=== PATIENT | female | born 1940 | race Caucasian/White ===

== ENCOUNTER 2024-04-09 15:29 | Inpatient (IN) | payer OTHER, SELFPAY ==
[2024-04-09] VITALS (19 sets, daily range): BP systolic 92–151; BP diastolic 47–93; BMI 23.4; BMI 22.3
--- NOTE | 2024-04-09 08:24 | ED.GENMED ---
History of Present Illness
<MIKE Vicente - Last Filed: 04/09/24 13:26>
General
Chief Complaint: Abdominal Symptoms
Source: patient and family
Time Seen by Provider: 04/09/24 08:13
Nursing documentation reviewed up to this point in time: agreed with
Travel History
Have you had any contact with someone who has COVID-19?: No
Do you have any symptoms of coronavirus? Fever > 100 degrees, chills, cough, shortness of breath, sore throat, loss of taste or smell, muscle aches, or headache?: No
History of Present Illness
History of Present Illness:
Patient is a 83-year-old female with history of endometrial cancer followed at [facility] immunotherapy has not started chemo yet due to start chemo April 21 presents to the ER for evaluation of abdominal bloating and distention/pain.
Patient does report however she is constipated as well but has had paracentesis March 29 and had 3 L drained.
She reports this bloating pain feels similar to when she needed her paracentesis March 29. She reports fluid has built up very quickly after having that drained. She denies any fever or chills redness to abdomen.
Past History
<MIKE Vicente - Last Filed: 04/09/24 13:26>
Past History
ED Past Medical History: Hypercholesterolemia; Negative HTN or NIDDM
Social History
Tobacco: Non-smoker
Alcohol: Occasional
Personal:
<Joe Barth MD - Last Filed: 04/09/24 11:06>
Past History
ED Past Medical History: Cancer (Endometrial cancer), HTN and Hypercholesterolemia
ED Past Surgical History: Gynecological
Review of Systems
<MIKE Vicente - Last Filed: 04/09/24 13:26>
Review of Systems
Allergies reviewed?: Yes
Other source history: family
All Other Systems: ROS reviewed and negative except as documented in HPI and ROS
Constitutional: Reports no symptoms; Denies fever, fatigue or chills
Respiratory: Reports no symptoms
Cardiac: Reports no symptoms
ABD/GI: Reports abdominal pain and other (abdominal bloating distention )
: Reports no symptoms
Musculoskeletal: Reports no symptoms
Skin: Reports no symptoms
Psychiatric: Reports no symptoms
Phy Exam
<MIKE Vicente - Last Filed: 04/09/24 13:26>
General Physical Exam
General Presentation: no apparent distress
General age: appears stated age
General Skin: warm and dry
General Mental: alert
General Hydration: appears well hydrated
Cardiovascular Exam
Cardiovascular Exam: regular rate/rhythm, no murmur and normal peripheral pulses
Pulmonary Exam
Pulmonary Exam: lungs clear and no respiratory distress
Gastrointestinal Exam
Gastrointestinal Exam: soft and other (Distended tender throughout no erythema)
Neurological Exam
Neurological Exam: alert and oriented x3
Musculoskeletal Exam
Musculoskeletal Exam: full ROM
Skin Exam
Skin Exam: normal color and warm/dry
Psychiatric Exam
Psychiatric Exam: normal mood/affect
Course
<MIKE Vicente - Last Filed: 04/09/24 13:26>
Orders/Labs/Results
Orders:
Orders
04/09/24 08:44
Electrocardiogram (*1) Stat
Reason for Study: Abdominal Pain
Cardiac Monitoring- Treatment ONCE
EKG- Treatment ONCE
IV Insert/Care/Rem.- Treatment PRN
Urinalysis Reflex To Culture Urgent
04/09/24 09:18
Complete Blood Count/With Diff Urgent
Comprehensive Metabolic Panel Urgent
Lipase Urgent
04/09/24 09:56
Morphine Sulfate 2 mg IV NOW STA
Ondansetron Injectable [Zofran] 4 mg IV NOW STA
04/09/24 09:58
CT Abd/pel Without Iv Or Oral Urgent
Comment:
Reason For Exam: Endometrial CA/ascites/lower abdominal pain
04/09/24 10:47
Consult Interventional Radiology [IRAD CONSULT] Urgent
Consulting Provider: Rojas Isidro
Was physician already notified: Yes
Reason for Consult/Procedure: paracentesis. evaluate for sbp
Acknowledgement that appropriate orders are entered: Yes
04/09/24 10:48
Body Fluid Albumin Routine
Fluid Source: Peritoneal (Ascites)
Body Fluid Amylase Routine
Fluid Source: Peritoneal (Ascites)
Body Fluid Cell Count Routine
What is the Body Fluid: peritoneal fluid
Comment: post procedure
Body Fluid LDH Routine
Fluid Source: Peritoneal (Ascites)
Body Fluid Protein Routine
Fluid Source: Peritoneal (Ascites)
Fluid Culture with Gram Stain Routine
JABIER Source: Peritoneal Fluid
Specimen Description:
Comment: Post Procedure
04/09/24 11:34
Notify MD As Directed
Notify physician if: Notify hospitalist MD of volume removed when paracentesis complete.
IRAD Cytology Routine
Source: Peritoneal Fluid
Clinical Impression: ascites
History of Malignancy: endometrial ca
04/09/24 12:14
Levetiracetam Injectable [Keppra] 1,000 mg .ROUTE .STK-MED ONE
Abnormal Lab Results
04/09/24
09:18
WBC 13.6 H 10^3/uL
(4.8-10.8)
RBC 3.40 L 10^6/uL
(4.20-5.40)
Hgb 10.6 L g/dL
(12.0-16.0)
Hct 31.6 L %
(37.0-47.0)
MCH 31.2 H pg
(27.0-31.0)
Plt Count 636 H 10^3/uL
(130-400)
Abs Immat Gran (auto) 0.1 H 10^3/uL
(0-0.05)
Absolute Neuts (auto) 10.0 H 10^3/uL
(1.4-6.5)
Absolute Monos (auto) 1.3 H 10^3/uL
(0.1-0.6)
Lymphocytes % 15.4 L %
(20.5-51.1)
Sodium 134 L mmol/L
(135-145)
BUN 27 H mg/dl
(7-17)
Creatinine 2.1 H mg/dL
(0.6-1.0)
Glucose 102 H mg/dl
(70-99)
AST 41 H U/L
(14-36)
Total Protein 5.3 L g/dl
(6.3-8.2)
Albumin 2.7 L g/dl
(3.5-5.0)
04/09/24 09:18
04/09/24 09:18
Vital Signs
Initial and Last Documented VS:
Initial Vital Signs
Temp Pulse Resp BP Pulse Ox
98.1 F 89 17 134/55 98
04/09/24 08:03 04/09/24 08:03 04/09/24 08:03 04/09/24 08:03 04/09/24 08:03
Last Documented Vital Signs
Temp Pulse Resp BP Pulse Ox
98.1 F 93 15 149/52 95
04/09/24 08:03 04/09/24 12:30 04/09/24 12:30 04/09/24 12:00 04/09/24 12:30
[employer] consulted with Physician
[employer] consulted with physician?: Yes
Name of Physician Consulted: Tab
<Joe Barth MD - Last Filed: 04/09/24 11:06>
Orders/Labs/Results
Orders:
Orders
04/09/24 08:44
Electrocardiogram (*1) Stat
Reason for Study: Abdominal Pain
Cardiac Monitoring- Treatment ONCE
EKG- Treatment ONCE
IV Insert/Care/Rem.- Treatment PRN
Urinalysis Reflex To Culture Urgent
04/09/24 09:18
Complete Blood Count/With Diff Urgent
Comprehensive Metabolic Panel Urgent
Lipase Urgent
04/09/24 09:56
Morphine Sulfate 2 mg IV NOW STA
Ondansetron Injectable [Zofran] 4 mg IV NOW STA
04/09/24 09:58
CT Abd/pel Without Iv Or Oral Urgent
Comment:
Reason For Exam: Endometrial CA/ascites/lower abdominal pain
04/09/24 10:47
Consult Interventional Radiology [IRAD CONSULT] Urgent
Consulting Provider: Rojas Isidro
Was physician already notified: Yes
Reason for Consult/Procedure: paracentesis. evaluate for sbp
Acknowledgement that appropriate orders are entered: Yes
04/09/24 10:48
Body Fluid Albumin Routine
Fluid Source: Peritoneal (Ascites)
Body Fluid Amylase Routine
Fluid Source: Peritoneal (Ascites)
Body Fluid Cell Count Routine
What is the Body Fluid: peritoneal fluid
Comment: post procedure
Body Fluid LDH Routine
Fluid Source: Peritoneal (Ascites)
Body Fluid Protein Routine
Fluid Source: Peritoneal (Ascites)
Fluid Culture with Gram Stain Routine
JABIER Source: Peritoneal Fluid
Specimen Description:
Comment: Post Procedure
04/09/24 11:34
Notify MD As Directed
Notify physician if: Notify hospitalist MD of volume removed when paracentesis complete.
IRAD Cytology Routine
Source: Peritoneal Fluid
Clinical Impression: ascites
History of Malignancy: endometrial ca
04/09/24 12:14
Levetiracetam Injectable [Keppra] 1,000 mg .ROUTE .STK-MED ONE
Abnormal Lab Results
04/09/24
09:18
WBC 13.6 H 10^3/uL
(4.8-10.8)
RBC 3.40 L 10^6/uL
(4.20-5.40)
Hgb 10.6 L g/dL
(12.0-16.0)
Hct 31.6 L %
(37.0-47.0)
MCH 31.2 H pg
(27.0-31.0)
Plt Count 636 H 10^3/uL
(130-400)
Abs Immat Gran (auto) 0.1 H 10^3/uL
(0-0.05)
Absolute Neuts (auto) 10.0 H 10^3/uL
(1.4-6.5)
Absolute Monos (auto) 1.3 H 10^3/uL
(0.1-0.6)
Lymphocytes % 15.4 L %
(20.5-51.1)
Sodium 134 L mmol/L
(135-145)
BUN 27 H mg/dl
(7-17)
Creatinine 2.1 H mg/dL
(0.6-1.0)
Glucose 102 H mg/dl
(70-99)
AST 41 H U/L
(14-36)
Total Protein 5.3 L g/dl
(6.3-8.2)
Albumin 2.7 L g/dl
(3.5-5.0)
04/09/24 09:18
04/09/24 09:18
Vital Signs
Initial and Last Documented VS:
Initial Vital Signs
Temp Pulse Resp BP Pulse Ox
98.1 F 89 17 134/55 98
04/09/24 08:03 04/09/24 08:03 04/09/24 08:03 04/09/24 08:03 04/09/24 08:03
Last Documented Vital Signs
Temp Pulse Resp BP Pulse Ox
98.1 F 93 15 149/52 95
04/09/24 08:03 04/09/24 12:30 04/09/24 12:30 04/09/24 12:00 04/09/24 12:30
<MIKE Vicente - Last Filed: 04/09/24 13:26>
MDM/Problems Addressed
Differential Diagnosis Includes:
Not limited to spontaneous bacterial peritonitis, diverticulitis, constipation
MDM/Problems Addressed:
83-year-old female with endometrial cancer being followed at [facility] presents to the ER with abdominal bloating pain. She had a paracentesis done March 29 reports is due for one tomorrow means abdominal pain swelling and also constipation. She
denies any fever chills. She has nauseous but has not vomited. On exam she is mildly tender throughout no erythema to abdomen she has no fever here. EValuated by ED attending will order ct and treat for pain /nausea.
Late entry patient has a white count elevated at 13.3 and CAT scan does show new large volume of abdominopelvic ascites and new moderate right hydro likely secondary to carcinomatosis in the inferior pelvis obstructing the distal right ureter.
Patient will need to have paracentesis with elevated white count and ascites to rule out spontaneous bacterial peritonitis
Chronic conditions affecting care:
Endometrial cancer
<MIKE Vicente - Last Filed: 04/09/24 13:26>
*Radiology
Radiology exam reviewed: radiology read reviewed (CAT scan shows new large volume abdominopelvic ascites new moderate right hydro likely secondary to carcinomatosis in the inferior pelvis and partial obstructing the distal right ureter small left
pleural effusion)
*Critical Care Note
Total Time (30-74mins, 75-104mins- exclusive of procedures): Not Applicable
ED Attending Note
<MIKE Vicente - Last Filed: 04/09/24 13:26>
-
Portions of this chart may have been created with voice recognition software.� Occasional wrong word or��sound alike� substitutions may have occurred due to the inherent limitations of voice recognition software.
<Joe Barth MD - Last Filed: 04/09/24 11:06>
ED Attending Note
Patient seen and examined by attending physician: Yes
I performed the substantive portion of visit, reviewed & personally made and approve the management plan that is documented in note by myself or DARNELL.: Yes
ED Attending Note:
83-year-old female with endometrial CA. Follow through [facility] goes to [facility] for a paracentesis. First was done March 29. After the paracentesis she felt better for 3 days but has developed ongoing and progressive pain since then. No
fever. Some constipation. No dysuria or frequency.
On exam patient appears uncomfortable but relatively nontoxic. She is mildly pale. Abdomen is mildly distended with hypoactive bowel sounds. Questionable minimal fluid wave. Tenderness more in the left lower quadrant. No rebound or guarding no
mass or hernia
Impression large differential including pain secondary to simple ascites accumulation, SBP, other nonrelated cause including diverticulitis. Workup in progress. Discussed with family.
1100... CT with significant ascites. Elevated white count. Paracentesis warranted. Discussed with IR. Discussed with hospitalist. Family updated.
Discharge Plan
Departure
Patient Disposition: Admit
Date of Disposition: 04/09/24
Time of Disposition: 10:48
Admit to doctor: hospitalist
Presentation/result/management discussed w/ accepting MD/DO: Hospitalist
Condition: Fair
Covid-19: Not Applicable
Discharge Problem:
Abdominal ascites, Abdominal pain
Prescriptions:
No Action
losartan 50 mg Tablet
50 mg PO DAILY
sennosides [Senokot] 8.6 mg Tablet
8.6 mg PO HS PRN (Reason: constipation)
ondansetron HCl 8 mg Tablet
8 mg PO QIDPRN PRN (Reason: nausea/vomiting)
tramadol 50 mg Tablet
50 mg PO BID PRN (Reason: mild pain)
acetaminophen [Tylenol Extra Strength] 500 mg Tablet
1,000 mg PO BIDPRN PRN (Reason: mild pain)
pantoprazole 40 mg Tablet,Delayed Release (Dr/Ec)
40 mg PO DAILY PRN (Reason: gerd)
carboxymethylcellulose sodium [Refresh] 1 % Drops, Liquid Gel
0 drp BOTH EYES DAILYPRN PRN (Reason: dry eyes)
Patient Comments:
04/09/2024, per pt., she uses PF eye drops and will place as many drops as she can get into each eye so she doesn't waste it.
rosuvastatin 5 mg Tablet
5 mg PO QPM
Systane (PF) 0.4-0.3 % Dropperette
1 drp BOTH EYES DAILYPRN PRN (Reason: dry eyes)
Referrals:
Dora Zepeda MD [Family Provider] -
Discharge Date and Time
Print Language: ARMENIAN
[2024-04-09 09:45] LABS: ALT (SGPT) < 10 U/L (0-35); AST (SGOT) 41 U/L (14-36); Albumin 2.7 g/dl (3.5-5.0); Alkaline Phosphatase 94 U/L (38-126); Blood Urea Nitrogen 27 mg/dl (7-17); Carbon Dioxide 22 mmol/L (22-30); Chloride 104 mmol/L (98-107); Estimated Creatinine Clearance 17 ml/min; Glucose 102 mg/dl (70-99); Potassium 4.8 mmol/L (3.5-5.1); Sodium 134 mmol/L (135-145); Total Bilirubin 0.4 mg/dl (0.2-1.3); Total Protein 5.3 g/dl (6.3-8.2); eGFR 22.81
[2024-04-09 09:48] LABS: % Basophils 0.7 % (0-2); % Eosinophils 1.1 % (0-6); % Immature Granulocytes 0.4 % (0-0.5); % Lymphocytes 15.4 % (20.5-51.1); % Monocytes 9.2 % (1.7-9.3); % Neutrophils 73.2 % (42.2-75.2); Absolute Basophils 0.1 10^3/uL (0-0.2); Absolute Eosinophils 0.2 10^3/uL (0-0.7); Absolute Immature Granulocytes 0.1 10^3/uL (0-0.05); Absolute Lymphocytes 2.1 10^3/uL (1.2-3.4); Absolute Monocytes 1.3 10^3/uL (0.1-0.6); Hematocrit 31.6 % (37.0-47.0); Hemoglobin 10.6 g/dL (12.0-16.0); Mean Corp Hgb Conc. 33.5 g/dL (33.0-37.0); Mean Corpuscular Hgb 31.2 pg (27.0-31.0); Mean Corpuscular Volume 92.9 fL (81.0-99.0); Mean Platelet Volume 8.5 fL (7.4-10.4); Nucleated Red Blood Cells % 0 %; Platelet Count 636 10^3/uL (130-400); Red Cell Dist. Width 12.6 % (11.5-14.5); White Blood Cell Count 13.6 10^3/uL (4.8-10.8)
[2024-04-09] MEDS: MORPHINE SULFATE 2 MG IV (10:02)
[2024-04-09] MEDS: ZOFRAN 4 MG IV (10:04)
[2024-04-09 10:07] LABS: Lipase 43 U/L (23-300)
--- NOTE | 2024-04-09 14:34 | HPS.HSE ---
Family Physician
-
Family Physician: Dora Zepeda
Chief Complaint
-
abd pain
History of Present Illness
83 y/o F hx of metastatic endometrial cancer, followed by [facility], hx of HTN, HLD presents to ER For abdominal pain, distention and bloating. Patient reports symptoms progressive over a few days and she recently had paracentesis 03/29. She
reports constipation as well. She was due to paracentesis tomorrow outpatient but came to ER For drainage. She reports chronic pain, and low appetite, limited intake. She is supposed to start chemo later in March.
In ER, she is found to have leukocytosis. She was sent to IR for paracentesis and 2.6L removed. Admitted for further management.
Medical History
Past Medical History
Past Medical History: Reports Other (hx of metastatic endometrial cancer, followed by [facility], hx of HTN, HLD)
Past Surgical History: Reports None
Social History
Tobacco: Non-smoker
Alcohol: Occasional
Personal:
Family History
Family History: Not pertinent
Allergies / Home Medications
Allergies reflects when Allergies were last updated in [employer].
Home Medications with original date entered in [employer]
Allergy/Medication List:
Allergies
Allergy/AdvReac Type Severity Reaction Status Date / Time
cefaclor [From [facility]] Allergy Rash Verified 04/09/24 08:17
shrimp Allergy Rash Uncoded 04/09/24 08:17
Home Medications
acetaminophen 500 mg tablet (Tylenol Extra Strength) 1,000 mg PO BIDPRN PRN mild pain 04/09/24
carboxymethylcellulose sodium 1 % eye liquid gel drops 0 drp BOTH EYES DAILYPRN PRN dry eyes 04/09/24
losartan 50 mg tablet 50 mg PO DAILY 04/09/24
ondansetron HCl 8 mg tablet 8 mg PO QIDPRN PRN nausea/vomiting 04/09/24
pantoprazole 40 mg tablet,delayed release 40 mg PO DAILY PRN gerd 04/09/24
peg 400-propylene glycol (PF) 0.4 %-0.3 % eye drops in a dropperette (Systane (PF)) 1 drp BOTH EYES DAILYPRN PRN dry eyes 04/09/24
rosuvastatin 5 mg tablet 5 mg PO QPM 04/09/24
sennosides 8.6 mg tablet (Senokot) 8.6 mg PO HS PRN constipation 04/09/24
tramadol 50 mg tablet 50 mg PO BID PRN mild pain 04/09/24
Review of Systems
-
A 12 point ROS was completed and negative except as noted: No
Physical Exam
Vital Signs
Vital Signs
Temp Pulse Resp BP Pulse Ox
99.5 F 94 16 135/54 98
04/09/24 13:00 04/09/24 13:51 04/09/24 13:51 04/09/24 13:51 04/09/24 13:51
Physical Exam
General: No Apparent Distress
HEENT: NormoCephalic and Anicteric
Respiratory: No Wheezes
Cardiac: S1/S2 and Regular Rhythm
GI: Tender (mild)
Neuro: AO x 3
Psych: Calm
Laboratory Results
-
04/09/24 09:18
04/09/24 09:18
Laboratory Results
Total Bilirubin 0.4 mg/dl (0.2-1.3) 04/09/24 09:18
AST 41 U/L (14-36) H 04/09/24 09:18
ALT < 10 U/L (0-35) 04/09/24 09:18
Alkaline Phosphatase 94 U/L (38-126) 04/09/24 09:18
Lipase 43 U/L (23-300) 04/09/24 09:18
Data Reviewed
-
CT Scan: Report Reviewed by me, Discussed with Patient and Discussed with Family
Lab Data: Labs Reviewed by me, Discussed with Patient and Discussed with Family
Impression/Plan
-
Assessment:
Ascites likely malignant, cannot rule out SBP
hx of metastatic endometrial cancer, followed by [facility]
- s/p paracentesis 04/09, 2.6L removed. labs pending
- give Albumin due to hypotension post procedure
- start empiric renally dosed Cipro pending data (Cephalosporin allergy)
- pain control, anti-emetics
- ok for diet, add supplements, concern for malnutrition, will be screened by dietary
- f/u with Firearms Inspector/Onc for planned initiation of chemo later this month
Essential HTN
- hold ARB
HLD
- hold statin
DVT ppx: SC heparin
Code: Full
[2024-04-09 14:42] LABS: Body Fluid Mononuclear 89.6 %; Body Fluid Polymorphonuclear 10.4 %; Body Fluid WBC 550 /CUMM
[2024-04-09 14:48] LABS: Body Fluid Second Tech HB
[2024-04-09 15:01] LABS: Body Fluid Albumin 1.6 g/dl; Body Fluid Amylase 45 U/L; Body Fluid Protein 3.5 g/dl
[2024-04-09 16:12] LABS: Body Fluid LDH 1939 U/L
--- NOTE | 2024-04-09 16:36 | PTCARENOTE ---
Received patient from ED via stretcher. Pt AAOX3. Pox: 95% RA. Call pinto within reach. Plan of care ongoing.
[2024-04-09] MEDS: FLEXBUMIN 100 IV (17:23)
[2024-04-09] MEDS: STERILE WATER FOR INJECTION 10 ML IV (17:28)
[2024-04-09] MEDS: ROCEPHIN 1000 MG IV (17:28)
[2024-04-09] MEDS: SENOKOT-S 1 TABLET PO ×2 (17:42→21:07)
[2024-04-09] MEDS: HEPARIN 5000 UNITS SC (20:58)
[2024-04-09] MEDS: MIRALAX 17 GRAMS PO (21:08)
[2024-04-09 23:34] LABS: Urine Albumin Trace (Neg - Trace); Urine Bilirubin Negative (Negative); Urine Character Clear (Clear); Urine Color Yellow; Urine Glucose Negative (Negative); Urine Ketone 1+ (Negative); Urine Leukocyte 1+ (Negative); Urine Nitrite Negative (Negative); Urine Occult Blood Negative (Negative); Urine Specific Gravity 1.025 (<1.030); Urine Urobilinogen Negative (Neg - 1+)
[2024-04-10 00:55] LABS: Urine Bacteria Few (Negative)
[2024-04-10 07:38] LABS: % Basophils 0.7 % (0-2); % Eosinophils 1.1 % (0-6); % Immature Granulocytes 0.6 % (0-0.5); % Lymphocytes 19.4 % (20.5-51.1); % Monocytes 13.1 % (1.7-9.3); % Neutrophils 65.1 % (42.2-75.2); Absolute Basophils 0.1 10^3/uL (0-0.2); Absolute Eosinophils 0.1 10^3/uL (0-0.7); Absolute Immature Granulocytes 0.1 10^3/uL (0-0.05); Absolute Lymphocytes 2.1 10^3/uL (1.2-3.4); Absolute Monocytes 1.4 10^3/uL (0.1-0.6); Absolute Neutrophils 7.1 10^3/uL (1.4-6.5); Hematocrit 26.9 % (37.0-47.0); Hemoglobin 8.9 g/dL (12.0-16.0); Mean Corp Hgb Conc. 33.1 g/dL (33.0-37.0); Mean Corpuscular Volume 93.7 fL (81.0-99.0); Mean Platelet Volume 8.5 fL (7.4-10.4); Nucleated Red Blood Cells % 0 %; Platelet Count 483 10^3/uL (130-400); Red Blood Cell Count 2.87 10^6/uL (4.20-5.40); Red Cell Dist. Width 12.5 % (11.5-14.5); White Blood Cell Count 10.9 10^3/uL (4.8-10.8)
[2024-04-10 07:55] VITALS: BP 130/54
[2024-04-10 08:06] LABS: Total Protein 4.7 g/dl (6.3-8.2)
[2024-04-10 08:07] LABS: ALT (SGPT) < 10 U/L (0-35); AST (SGOT) 37 U/L (14-36); Albumin 2.4 g/dl (3.5-5.0); Alkaline Phosphatase 73 U/L (38-126); Blood Urea Nitrogen 32 mg/dl (7-17); Calcium 8.7 mg/dl (8.4-10.2); Carbon Dioxide 23 mmol/L (22-30); Chloride 103 mmol/L (98-107); Estimated Creatinine Clearance 17 ml/min; Glucose 91 mg/dl (70-99); Sodium 134 mmol/L (135-145); Total Bilirubin 0.3 mg/dl (0.2-1.3); eGFR 22.81
[2024-04-10] MEDS: HEPARIN 5000 UNITS SC ×2 (09:41→20:06)
--- NOTE | 2024-04-10 11:24 | CM ---
Addendum entered by Mayi Benavidez 04/10/24 14:04:
Per PT/OT, pt is independent and no needs noted
Discharge Disposition- home, no needs
Original Note:
CM met with pt bedside
Pt resides with her spouse in a rancher with 4STE/back and 1STE/front
Pt notes independence with her ADLs, drives+, food secure
Denies use of DMEs
PCP- Dora Zepeda
Rx- Mario
Pt receives onc care through [facility]
Is set to start chemo at the outpatient [place] office
Will need total of 6 treatments, once [id number]
PT/OT pending
CM will continue to follow pt for dc planning
Discharge Disposition- home, anticipate no needs
[2024-04-10 11:30] VITALS: BP 125/50; PULSE 88; O2SAT 96
--- NOTE | 2024-04-10 12:19 | PTOTSP ---
Pt is independent with bed mobility, transfers, and ambulation without an assistive device. No acute PT needs were identified. PT will sign off at this time.
[2024-04-10 13:01] VITALS: BP 125/50; PULSE 90; O2SAT 96
[2024-04-10] MEDS: CITROMA 300 ML PO (14:02)
[2024-04-10] MEDS: ZOFRAN 4 MG IV (14:07)
[2024-04-10 15:55] VITALS: BP 136/50
--- NOTE | 2024-04-10 17:10 | W.PN.HOSP.TC ---
Today's Communication/Plan
-
maintain on abx
laxative
f/u renal function
Assessment / Plan
Assessment / Plan
Ascites likely malignant, cannot rule out SBP
hx of metastatic endometrial cancer, followed by [facility]/Onc
- s/p paracentesis 04/09, 2.6L removed. TWBC 550 PMN 10%, gram stain neg.
- give Albumin due to hypotension post procedure
- Still have some leukocytosis. Maintain on empiric Rocephin.
- pain control, anti-emetics
- f/u with [facility]/Onc for planned initiation of chemo later this month
Constipation
-Senokot/MiraLAX does not work
-Milk of magnesium and dulcloalx suppos ordered.
Essential HTN
- hold ARB
Presumed CKD stage IV
-worsening renal function, in nov 20 GFR 24
-hold ARB for now
-will need to f/u with nephro
HLD
- hold statin
Normocytic anemia
Thrombocytosis
Hyponatremia
DVT ppx: SC heparin
Code: Full
Anticipated Discharge: Within 24 hours
Subjective/Interval History
-
Date of Service: April 10, 2024
Complaining some lower abdominal discomfort
No nausea or vomiting
afebrile in night
Objective Data
-
Labs:
Laboratory Results
04/10/24
05:46
WBC 10.9 H
Hgb 8.9 L
Hct 26.9 L
Plt Count 483 H D
Sodium 134 L
Potassium 5.0
Chloride 103
Carbon Dioxide 23
BUN 32 H
Creatinine 2.1 H
Glucose 91
Calcium 8.7
Total Bilirubin 0.3
AST 37 H
ALT < 10
Alkaline Phosphatase 73
Vital Signs:
Vital Signs
Temp Pulse Resp BP Pulse Ox
99.2 F 84 18 136/50 96
04/10/24 15:55 04/10/24 15:55 04/10/24 15:55 04/10/24 15:55 04/10/24 15:55
I&O
04/09/24 04/10/24 04/11/24
06:59 06:59 06:59
Intake Total 180 / 180
Balance 180 / 180
Review of Systems
-
Respiratory: Reports No Symptoms
Cardiac: Reports No Symptoms
Abdomen/GI: Reports Abdominal Pain and Constipated; Denies Nausea or Vomiting
Physical Exam
-
General: Comfortable and Cachectic
HEENT: Negative Oxygen
Respiratory: Clear to Auscultation
Cardiac: Regular Rhythm and S1/S2; Negative Murmur or Rub
GI: Soft, Nontender and Nondistended
Musculoskeletal: No Edema
Neuro: Awake, Alert, Oriented, No Motor Deficits and Nonfocal/Grossly Intact
Psych: Calm
[2024-04-10 17:44] VITALS: BMI 22.3
[2024-04-10] MEDS: STERILE WATER FOR INJECTION 10 ML IV (18:14)
[2024-04-10] MEDS: ROCEPHIN 1000 MG IV (18:15)
[2024-04-10] MEDS: DULCOLAX 10 MG RECTAL (20:25)
[2024-04-10] MEDS: TYLENOL 650 MG PO (22:44)
[2024-04-10 23:25] VITALS: BP 117/50
[2024-04-11 07:15] VITALS: BP 129/47
[2024-04-11 07:55] LABS: Hemoglobin 10.3 g/dL (12.0-16.0); Mean Corp Hgb Conc. 32.2 g/dL (33.0-37.0); Mean Corpuscular Hgb 30.7 pg (27.0-31.0); Mean Corpuscular Volume 95.5 fL (81.0-99.0); Mean Platelet Volume 8.4 fL (7.4-10.4); Platelet Count 584 10^3/uL (130-400); Red Blood Cell Count 3.35 10^6/uL (4.20-5.40); Red Cell Dist. Width 12.6 % (11.5-14.5); White Blood Cell Count 14.4 10^3/uL (4.8-10.8)
[2024-04-11 08:21] LABS: Blood Urea Nitrogen 33 mg/dl (7-17); Calcium 9.1 mg/dl (8.4-10.2); Carbon Dioxide 26 mmol/L (22-30); Chloride 103 mmol/L (98-107); Estimated Creatinine Clearance 18 ml/min; Glucose 105 mg/dl (70-99); Potassium 5.1 mmol/L (3.5-5.1); Sodium 136 mmol/L (135-145); eGFR 24.18
[2024-04-11] MEDS: HEPARIN 5000 UNITS SC ×2 (09:00→20:30)
--- NOTE | 2024-04-11 12:25 | CM ---
CM reviewed pt with Dr Chappell- possible dc later today
Bedside meeting with pt- no dc needs noted
IMM verbally reviewed-copy provided
Discharge Disposition- home, no needs
--- NOTE | 2024-04-11 14:49 | W.PN.HOSP.TC ---
Today's Communication/Plan
-
see note
Assessment / Plan
Assessment / Plan
Ascites likely malignant
hx of metastatic endometrial cancer, followed by [facility]/Onc
- s/p paracentesis 04/09, 2.6L removed. TWBC 550 PMN 10%, gram stain neg.
- give Albumin due to hypotension post procedure
- Still have some leukocytosis. Maintain on empiric Rocephin.
- pain control, anti-emetics
- f/u with Advanced Manufacturing Engineer/Onc for planned initiation of chemo later this month
- Repeat ultrasound showing mod ascites again, will ask IR to drain
Metastatic endometrial carcinoma
Peritoneal carcinomatosis
-Patient have diffuse pain/bloating and feels secondary to ascites
-will have ascites drained again
-Encourage patient to take symptomatic care as some of the pain/discomfort coming from carcinomatosis as well
Constipation - resolved
-Senokot/MiraLAX does not work
-resolved with Milk of magnesium and Dulcolax suppos
Essential HTN
- hold ARB
Presumed CKD stage IV
-worsening renal function, in nov 20
-hold ARB for now
-will need to f/u with nephro
HLD
- hold statin
Normocytic anemia
Thrombocytosis
Hyponatremia
DVT ppx: SC heparin
Code: Full
Anticipated Discharge: Within 24 hours
Subjective/Interval History
-
Date of Service: April 11, 2024
have lower abd pain and discomfort
no nausea/vomiting
had BM with laxative
Objective Data
-
Labs:
Laboratory Results
04/11/24
07:14
WBC 14.4 H
Hgb 10.3 L
Hct 32.0 L
Plt Count 584 H D
Sodium 136
Potassium 5.1
Chloride 103
Carbon Dioxide 26
BUN 33 H
Creatinine 2.0 H
Glucose 105 H
Calcium 9.1
Vital Signs:
Vital Signs
Temp Pulse Resp BP Pulse Ox
99.1 F 76 16 129/47 95
04/11/24 07:15 04/11/24 07:15 04/11/24 07:15 04/11/24 07:15 04/11/24 13:06
I&O
04/10/24 04/11/24 04/12/24
06:59 06:59 06:59
Intake Total 180 / 180 120 / 120
Balance 180 / 180 120 / 120
Review of Systems
-
Respiratory: Reports No Symptoms
Cardiac: Reports No Symptoms
Abdomen/GI: Reports Abdominal Pain; Denies Nausea or Vomiting
Physical Exam
-
General: Comfortable and Cachectic
HEENT: Negative Oxygen
Respiratory: Clear to Auscultation
Cardiac: Regular Rhythm and S1/S2; Negative Murmur or Rub
GI: Soft and Distended
Musculoskeletal: No Edema
Neuro: Awake, Alert, Oriented, No Motor Deficits and Nonfocal/Grossly Intact
Psych: Calm
--- NOTE | 2024-04-11 15:04 | PN.CDI ---
CDI
- -
CDI:
Physician Documentation Request
Admit Date: 04/09/24 15:29
Dear Doctor Ta,
Patient admitted with malignant ascites.
04/10 Nutrition note, 'With decreased intakes (<75% estimated energy requirement for > 1 month and observations, pt meeting criteria for moderate protein/calorie malnutrition (ASPEN/AND guidelines, chronic illness).
Please provide in your note the diagnosis associated with the above findings and your assessment:
Moderate protein calorie malnutrition
Mild protein calorie malnutrition
Other
[place] Criteria ([facility] Hospitalist 2017)
2 or more criteria must be present for either
non severe or severe malnutrition
Note that the criteria differs related to the
presence of an acute or chronic illness
Chronic Illness
Energy Intake Non Severe: <75% for >1 month
Severe: <75% for >1 month
Weight Loss Non Severe: 5% over 1 month
7.5% over 3 months
10% over 6 months
20% over 1 year
Severe: >5% over 1 month
>7.5% over 3 months
>10% over 6 months
>20% over 1 year
Body Fat Non Severe: Mild Loss
Severe: Severe Loss
Muscle Mass Non Severe: Mild Loss
Severe: Severe Loss
Fluid Accumulation Non Severe: Mild Accumulation
Severe: Moderate to severe
accumulation
Reduced Pipe Manufacture Supervisor Strength Non Severe: N/A
Severe: Measurably reduced
Use of terms such as suspected, likely, concern for, or probable (associated with a specific diagnosis that is being evaluated, monitored, or treated as if it exists) are acceptable and can be coded in the inpatient setting, when documented at the
time of discharge.
Thank you,
Samantha FONSECA,RN,CCDS
CDI Specialist
Available via [facility] text
Please use your independent medical judgment in providing your response.
[2024-04-11 15:05] VITALS: BP 129/55
[2024-04-11] MEDS: ULTRAM 50 MG PO ×2 (15:10→21:11)
[2024-04-11] MEDS: ROCEPHIN 1000 MG IV (17:17)
[2024-04-11] MEDS: STERILE WATER FOR INJECTION 10 ML IV (17:17)
[2024-04-11] MEDS: TYLENOL 650 MG PO (18:14)
[2024-04-11 23:06] VITALS: BP 138/64
--- NOTE | 2024-04-12 03:11 | DOWNTIME ---
There was a [employer] Downtime on 04/11/2024 from 0100 to 04/12/2024 at 0300. Downtime documentation of patient's care, including medication administrations, has been reconciled in the electronic record per guidelines. Refer to the
patient's paper chart under the miscellaneous tab to see printed paper medication records and downtime forms.
[2024-04-12] MEDS: ULTRAM 50 MG PO ×2 (03:14→09:16)
[2024-04-12 05:38] LABS: Hematocrit 29.1 % (37.0-47.0); Hemoglobin 9.8 g/dL (12.0-16.0); Mean Corp Hgb Conc. 33.7 g/dL (33.0-37.0); Mean Corpuscular Hgb 31.4 pg (27.0-31.0); Mean Corpuscular Volume 93.3 fL (81.0-99.0); Mean Platelet Volume 8.3 fL (7.4-10.4); Platelet Count 541 10^3/uL (130-400); Red Blood Cell Count 3.12 10^6/uL (4.20-5.40); Red Cell Dist. Width 12.4 % (11.5-14.5); White Blood Cell Count 11.6 10^3/uL (4.8-10.8)
[2024-04-12 06:03] LABS: Blood Urea Nitrogen 32 mg/dl (7-17); Calcium 8.7 mg/dl (8.4-10.2); Carbon Dioxide 25 mmol/L (22-30); Chloride 102 mmol/L (98-107); Estimated Creatinine Clearance 19 ml/min; Glucose 106 mg/dl (70-99); Potassium 4.9 mmol/L (3.5-5.1); Sodium 133 mmol/L (135-145); eGFR 25.72
[2024-04-12] MEDS: TYLENOL 650 MG PO (06:04)
[2024-04-12 07:55] VITALS: BP 143/56
[2024-04-12 08:09] VITALS: BP 150/57; BP_SYST 79
[2024-04-12 08:38] VITALS: BP 144/57
[2024-04-12 08:47] LABS: Body Fluid WBC 905 /CUMM
[2024-04-12 08:48] LABS: Body Fluid Mononuclear 88.6 %; Body Fluid Polymorphonuclear 11.4 %
[2024-04-12 08:49] LABS: Body Fluid Second Tech ASW
[2024-04-12] MEDS: HEPARIN 5000 UNITS SC ×2 (09:00→19:51)
[2024-04-12] MEDS: ZOFRAN 4 MG IV (10:24)
[2024-04-12] MEDS: MORPHINE SULFATE 1 MG IV (11:26)
[2024-04-12] MEDS: NEURONTIN 100 MG PO ×2 (12:28→19:52)
--- NOTE | 2024-04-12 12:32 | CON.ONC ---
Impression
Impression
Recurrent endometrial cancer with carcinomatosis
Plan
Plan
Paracentesis for comfort.
Will get records from [facility].
Coordinate transition of care to [place] Dr. Campbell/Jose to initiate chemotherapy locally at [place] office minutes away from her home.
TY. We will follow with you.
Patient History
History of Present Illness
Family Physician: Dora Zepeda
CC: abd pain
HPI:
83 y/o F hx of ST I endometrial cancer s/p PAOLO ~ 2013 Dr. 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 Patient reports symptoms
progressive over a few days and she recently had paracentesis 03/29. She reports chronic pain, constipation , poor appetite. She is supposed to start chemo later in March but wants to transfer care to [place] as closer to home and knows Dr. Campbell and
her sees Dr. Garcia for polycythemia. She was sent to IR for paracentesis and 2.6L. CT confirmed carcinomatosis.
CT A/P IMP:
1. New large volume abdominopelvic ascites.
2. New moderate right hydronephrosis, likely secondary to carcinomatosis in the inferior pelvis partially obstructing the distal right ureter. Peritoneal carcinomatosis/peritoneal metastatic implants greatest in the left hemiabdomen and throughout
the pelvis the overall evaluation of which is limited in the absence of intravenous contrast.
3. Small left pleural effusion.
Past-Medical/Surgical History
PMH: Metastatic endometrial cancer, HTN, HLD
Past Surgical History: PAOLO/BSO 2013
Social History
Tobacco: Non-smoker
Alcohol: Occasional
Personal:
Family History
Family History: Not pertinent
Patient Medication
�Medication �Instructions �Recorded �Confirmed �Last Taken �Type
acetaminophen 500 mg tablet 1,000 mg PO BIDPRN PRN mild pain 04/09/24 04/09/24 04/08/24 History
(Tylenol Extra Strength)
carboxymethylcellulose sodium 1 % 0 drp BOTH EYES DAILYPRN PRN dry 04/09/24 04/09/24 4 Days Ago History
eye liquid gel drops eyes ~04/05/24
losartan 50 mg tablet 50 mg PO DAILY 04/09/24 04/09/24 04/08/24 History
ondansetron HCl 8 mg tablet 8 mg PO QIDPRN PRN nausea/vomiting 04/09/24 04/09/24 04/08/24 History
pantoprazole 40 mg tablet,delayed 40 mg PO DAILY PRN gerd 04/09/24 04/09/24 1 Day Ago History
release ~04/08/24
peg 400-propylene glycol (PF) 0.4 1 drp BOTH EYES DAILYPRN PRN dry 04/09/24 04/09/24 04/08/24 History
%-0.3 % eye drops in a dropperette eyes
(Systane (PF))
rosuvastatin 5 mg tablet 5 mg PO QPM 04/09/24 04/09/24 04/07/24 History
sennosides 8.6 mg tablet (Senokot) 8.6 mg PO HS PRN constipation 04/09/24 04/09/24 3 Days Ago History
~04/06/24
tramadol 50 mg tablet 50 mg PO BID PRN mild pain 04/09/24 04/09/24 04/08/24 History
Active Medications
Generic Name Dose Route Start Last Admin
Trade Name Freq PRN Reason Stop Dose Admin
Acetaminophen 650 mg 04/09/24 16:27 04/12/24 06:04
Acetaminophen 325 Mg Tablet PO 05/07/24 16:26 650 mg
Q4HPRN PRN Administration
mild pain/CLEMENTS/temp> 100.4F
Bisacodyl 10 mg 04/09/24 16:27 04/10/24 20:25
Bisacodyl 10 Mg Rectal Suppository RECTAL 05/07/24 16:26 10 mg
[id number] PRN Administration
constipation
Ceftriaxone Sodium 1,000 mg 04/09/24 18:00 04/11/24 17:17
Ceftriaxone 1000 Mg / 10 Ml Vial IV 1,000 mg
Q24H SILVERIO Administration
Gabapentin 100 mg 04/12/24 12:00 04/12/24 12:28
Gabapentin 100 Mg Capsule PO 05/10/24 11:59 100 mg
BID SILVERIO Administration
Heparin Sodium 5,000 units 04/09/24 20:00 04/12/24 09:00
Heparin 5,000 Units/Ml 1 Ml Vial SC 05/07/24 19:59 5,000 units
Q12 SILVERIO Administration
Ondansetron HCl 4 mg 04/09/24 16:27 04/12/24 10:24
Ondansetron 4 Mg/2 Ml Vial IV 05/07/24 16:26 4 mg
Q6HPRN PRN Administration
nausea and vomiting
Oxycodone HCl 5 mg 04/12/24 11:03
Oxycodone 5 Mg Regular Release Tablet PO 04/26/24 11:02
Q4HPRN PRN
mod pain
Oxycodone HCl 10 mg 04/12/24 11:03
Oxycodone 10 Mg Regular Release Tablet PO 04/26/24 11:02
Q4HPRN PRN
sev pain
Polyethylene Glycol 17 grams 04/09/24 16:27 04/09/24 21:08
Polyethylene Glycol Powder 17 Grams Packet PO 05/07/24 16:26 17 grams
DAILYPRN PRN Administration
constipation
Senna/Docusate Sodium 1 tablet 04/09/24 16:27 04/09/24 21:07
Docusate W/Senna (Sharon-Colace) Tablet PO 05/07/24 16:26 1 tablet
BIDPRN PRN Administration
constipation
Simethicone 80 mg 04/11/24 10:51
Simethicone 80 Mg Chewable Tablet PO 05/09/24 10:50
TIDPRN PRN
bloating
Sodium Chloride 0 flush 04/09/24 17:00
Sodium Chloride 0.9% (Flush) Syringe IV 05/07/24 16:59
PER PROTOCOL SILVERIO
Sterile Water 10 ml 04/09/24 18:00 04/11/24 17:17
Sterile Water For Injection 10 Ml Vial IV 05/07/24 17:59 10 ml
Q24H SILVERIO Administration
Physical Exam
-
General: No Apparent Distress and Comfortable
HEENT: Negative Jaundice
Cardiology: S1 and S2
Pulmonary: Clear
GI: Soft
Extremities: No C/C/E
Labs
Lab Results
WBC 11.6 10^3/uL (4.8-10.8) H 04/12/24 05:11
RBC 3.12 10^6/uL (4.20-5.40) L 04/12/24 05:11
Hgb 9.8 g/dL (12.0-16.0) L 04/12/24 05:11
Hct 29.1 % (37.0-47.0) L 04/12/24 05:11
MCV 93.3 fL (81.0-99.0) 04/12/24 05:11
MCH 31.4 pg (27.0-31.0) H 04/12/24 05:11
MCHC 33.7 g/dL (33.0-37.0) 04/12/24 05:11
RDW 12.4 % (11.5-14.5) 04/12/24 05:11
Plt Count 541 10^3/uL (130-400) H 04/12/24 05:11
MPV 8.3 fL (7.4-10.4) 04/12/24 05:11
Abs Immat Gran (auto) 0.1 10^3/uL (0-0.05) H 04/10/24 05:46
Absolute Neuts (auto) 7.1 10^3/uL (1.4-6.5) H 04/10/24 05:46
Absolute Lymphs (auto) 2.1 10^3/uL (1.2-3.4) 04/10/24 05:46
Absolute Monos (auto) 1.4 10^3/uL (0.1-0.6) H 04/10/24 05:46
Absolute Eos (auto) 0.1 10^3/uL (0-0.7) 04/10/24 05:46
Absolute Basos (auto) 0.1 10^3/uL (0-0.2) 04/10/24 05:46
Immature Gran % 0.6 % (0-0.5) H 04/10/24 05:46
Neutrophils % 65.1 % (42.2-75.2) 04/10/24 05:46
Lymphocytes % 19.4 % (20.5-51.1) L 04/10/24 05:46
Monocytes % 13.1 % (1.7-9.3) H 04/10/24 05:46
Eosinophils % 1.1 % (0-6) 04/10/24 05:46
Basophils % 0.7 % (0-2) 04/10/24 05:46
Creatinine 1.9 mg/dL (0.6-1.0) H 04/12/24 05:11
Vital Signs
Vital Signs
Temp Pulse Resp BP Pulse Ox
98.2 F 79 18 144/57 94
04/12/24 08:09 04/12/24 08:38 04/12/24 08:38 04/12/24 08:38 04/12/24 11:34
--- NOTE | 2024-04-12 14:13 | W.PN.HOSP.TC ---
Today's Communication/Plan
-
see note
Assessment / Plan
Assessment / Plan
Ascites likely malignant
hx of metastatic endometrial cancer, followed by [facility] [employer] [facility]/Onc
- s/p paracentesis 04/09, 2.6L removed. TWBC 550 PMN 10%, gram stain neg.
- give Albumin due to hypotension post procedure
- Still have some leukocytosis. Maintain on empiric Rocephin.
- pain control, anti-emetics
- f/u with [employer] [facility]/Onc for planned initiation of chemo later this month
- Got repeat paracentesis of 2.6 L serosanguineous drainage today
- Family wondering if patient would benefit with placement of peritoneal drainage catheter,
Metastatic endometrial carcinoma
Peritoneal carcinomatosis
-Patient have diffuse pain/bloating and feels secondary to ascites
-will have ascites drained again
-Patient planned to transition care to Dr. Langston/onc-gospel singer with [facility], discussed over the phone and he has requested [facility] production service manager physician to be involved.
Constipation - resolved
-Senokot/MiraLAX does not work
-resolved with Milk of magnesium and Dulcolax suppos
Essential HTN
- hold ARB
Presumed CKD stage IV
-worsening renal function, in nov 20 GFR
-hold ARB for now
-will need to f/u with nephro
HLD
- hold statin
Normocytic anemia
Thrombocytosis
Hyponatremia
DVT ppx: SC heparin
Code: Full
Anticipated Discharge: Within 24 hours
Subjective/Interval History
-
Date of Service: April 12, 2024
Abdominal pain better
Denies nausea or vomiting
Objective Data
-
Labs:
Laboratory Results
04/12/24
05:11
WBC 11.6 H
Hgb 9.8 L
Hct 29.1 L
Plt Count 541 H
Sodium 133 L
Potassium 4.9
Chloride 102
Carbon Dioxide 25
BUN 32 H
Creatinine 1.9 H
Glucose 106 H
Calcium 8.7
Vital Signs:
Vital Signs
Temp Pulse Resp BP Pulse Ox
98.2 F 79 18 144/57 94
04/12/24 08:09 04/12/24 08:38 04/12/24 08:38 04/12/24 08:38 04/12/24 11:34
I&O
04/11/24 04/12/24 04/13/24
06:59 06:59 06:59
Intake Total 120 / 120 1140 / 1140
Balance 120 / 120 1140 / 1140
Review of Systems
-
Respiratory: Reports No Symptoms
Cardiac: Reports No Symptoms
Abdomen/GI: Reports Abdominal Pain
Physical Exam
-
General: Comfortable and Cachectic
HEENT: Negative Oxygen
Respiratory: Clear to Auscultation
Cardiac: Regular Rhythm and S1/S2; Negative Murmur or Rub
GI: Soft and Distended
Musculoskeletal: No Edema
Neuro: Awake, Alert, Oriented, No Motor Deficits and Nonfocal/Grossly Intact
Psych: Calm
[2024-04-12] MEDS: ROXICODONE 5 MG PO ×2 (14:44→19:10)
[2024-04-12 15:28] VITALS: BP 139/60
[2024-04-12] MEDS: STERILE WATER FOR INJECTION 10 ML IV (17:13)
[2024-04-12] MEDS: ROCEPHIN 1000 MG IV (17:15)
[2024-04-12] MEDS: SENOKOT-S 1 TABLET PO (17:28)
[2024-04-12 23:49] VITALS: BP 115/43
[2024-04-13 05:29] LABS: Hematocrit 30.6 % (37.0-47.0); Hemoglobin 10.2 g/dL (12.0-16.0); Mean Corp Hgb Conc. 33.3 g/dL (33.0-37.0); Mean Corpuscular Hgb 31.1 pg (27.0-31.0); Mean Corpuscular Volume 93.3 fL (81.0-99.0); Mean Platelet Volume 8.2 fL (7.4-10.4); Platelet Count 624 10^3/uL (130-400); Red Blood Cell Count 3.28 10^6/uL (4.20-5.40); Red Cell Dist. Width 12.6 % (11.5-14.5); White Blood Cell Count 13.3 10^3/uL (4.8-10.8)
[2024-04-13 07:55] VITALS: BP 110/61
[2024-04-13] MEDS: NEURONTIN 100 MG PO ×2 (07:57→20:13)
[2024-04-13] MEDS: MIRALAX 17 GRAMS PO (07:57)
[2024-04-13] MEDS: HEPARIN 5000 UNITS SC ×2 (07:57→20:13)
[2024-04-13 08:04] LABS: Blood Urea Nitrogen 32 mg/dl (7-17); Calcium 8.6 mg/dl (8.4-10.2); Carbon Dioxide 29 mmol/L (22-30); Chloride 101 mmol/L (98-107); Estimated Creatinine Clearance 19 ml/min; Glucose 103 mg/dl (70-99); Potassium 6.1 mmol/L (3.5-5.1); Sodium 132 mmol/L (135-145); eGFR 25.72
--- NOTE | 2024-04-13 08:18 | W.PN.HOSP.TC ---
Today's Communication/Plan
-
see note
Assessment / Plan
Assessment / Plan
Malignant ascites
- s/p paracentesis 04/09, 2.6L removed. TWBC 550 PMN 10%, gram stain neg. Cytopath pending
- s/p repeat paracentesis of 2.6 L of serosanguineous drainage on 04/12 - TWBC 905 PMN 11.5%
- No signs of SBP, abd pain resolved. some minor persistent leukocytosis. will hold further Rocephin
- Family wondering if patient would benefit with placement of peritoneal drainage catheter, discussed with oncology to comment
Metastatic endometrial carcinoma
Peritoneal carcinomatosis
-Patient planned to transition care to Dr. Langston/onc-high school guidance counselor with [facility]
-started on pain medication and have excellent pain relief with the current regimen
Constipation -
-Senokot/MiraLAX does not work usullay per patient
-got small BM with milk of mag earlier in the week
-Providing dose of dulcolax suppos .
Hyperkalemia
-reason unclear
-renal function down but close to baseline. not oligouric.
-no K supplement. not on trish/arb currently.
-no reported hemolysis.
-constipated -providing laxatives and should help with luminal loss
-IV lasix 20mg x1
-Lokelma doses ordered
Essential HTN
- hold ARB, see above
- BP controlled without meds
Presumed CKD stage IV
-worsening renal function, in nov 20 GFR 24
-hold ARB for now
-will need to f/u with nephro
HLD
- resume statin
Normocytic anemia
Thrombocytosis
Hyponatremia
DVT ppx: SC heparin
Code: Full
Discussed with oncology
Total time spent : 52 mins
Anticipated Discharge: 24 - 48 hours
Subjective/Interval History
-
Date of Service: April 13, 2024
abd pain is better
no nausea/vomiting
patient is constipated
Objective Data
-
Labs:
Laboratory Results
04/13/24 04/13/24
04:56 07:08
WBC 13.3 H
Hgb 10.2 L
Hct 30.6 L
Plt Count 624 H
Sodium Cancelled 132 L
Potassium Cancelled 6.1 H*
Chloride Cancelled 101
Carbon Dioxide Cancelled 29
BUN Cancelled 32 H
Creatinine Cancelled 1.9 H
Glucose Cancelled 103 H
Calcium Cancelled 8.6
Vital Signs:
Vital Signs
Temp Pulse Resp BP Pulse Ox
98.8 F 89 18 115/43 92
04/12/24 23:49 04/12/24 23:49 04/12/24 23:49 04/12/24 23:49 04/12/24 23:49
I&O
04/12/24 04/13/24 04/14/24
06:59 06:59 06:59
Intake Total 1140 / 1140 900 / 900
Balance 1140 / 1140 900 / 900
Review of Systems
-
Respiratory: Reports No Symptoms
Cardiac: Reports No Symptoms
Abdomen/GI: Denies Abdominal Pain or Nausea
Physical Exam
-
General: Comfortable and Cachectic
HEENT: Negative Oxygen
Respiratory: Clear to Auscultation
Cardiac: Regular Rhythm and S1/S2; Negative Murmur or Rub
GI: Soft, Nontender, Nondistended and Normal Bowel Sounds
Musculoskeletal: No Edema
Neuro: Awake, Alert, Oriented, No Motor Deficits and Nonfocal/Grossly Intact
Psych: Calm
[2024-04-13] MEDS: LOKELMA 10 GRAM PO ×3 (08:31→19:16)
[2024-04-13] MEDS: DULCOLAX 10 MG PO (10:18)
--- NOTE | 2024-04-13 10:32 | W.PN.ONC ---
Today's Communication / Plan
-
Paracentesis as needed
Explained the loss of albumin and need to space paracentesis
Anticipate need for systemic therapy
Would avoid indwelling catheter to the abdomen due to risk and infection and leaking
Coordinate transition of care to [place] Dr. Campbell/Jose to initiate chemotherapy locally at [place] office minutes away from her home.
Impression
Impression
Recurrent endometrial cancer with carcinomatosis
Subjective/Objective
Subjective/Objective
Patient much more comfortable post paracentesis
Vital Signs:
Vital Signs
Temp Pulse Resp BP Pulse Ox
99.2 F 85 16 110/61 95
04/13/24 07:55 04/13/24 07:55 04/13/24 07:55 04/13/24 07:55 04/13/24 07:55
Low-grade temp without focal symptoms
No scleral icterus
Regular without murmur
Decreased in the bases
Mildly protuberant with bowel sounds present
Symmetrical lower extremities
Lab Results:
Laboratory Data
WBC 13.3 10^3/uL (4.8-10.8) H 04/13/24 04:56
Hgb 10.2 g/dL (12.0-16.0) L 04/13/24 04:56
Plt Count 624 10^3/uL (130-400) H 04/13/24 04:56
eGFR 25.72 04/13/24 07:08
[2024-04-13 13:45] LABS: Glucose - Point of Care 139 mg/dl (70-99)
--- NOTE | 2024-04-13 14:00 | PTCARENOTE ---
Pt c/o feeling ' woozy and weak' VSS. Orthos completed and negative. Pt instructed to ring for assistance, verbalized understanding, MD made aware, plan of care ongoing.
[2024-04-13 14:12] VITALS: BP 114/50; BP 118/51; BP 126/53; PULSE 100; PULSE 104; PULSE 95
[2024-04-13 15:52] VITALS: BP 122/55
[2024-04-13] MEDS: DUPHALAC/CHRONULAC PO ×3 (17:26→18:20)
[2024-04-13] MEDS: ZOFRAN 4 MG IV (17:27)
[2024-04-13] MEDS: ROXICODONE 5 MG PO (19:16)
[2024-04-13] MEDS: DUPHALAC/CHRONULAC 20 GRAMS PO (21:23)
[2024-04-13 23:36] VITALS: BP 117/53
[2024-04-14 05:56] LABS: Blood Urea Nitrogen 33 mg/dl (7-17); Calcium 8.5 mg/dl (8.4-10.2); Carbon Dioxide 26 mmol/L (22-30); Chloride 100 mmol/L (98-107); Estimated Creatinine Clearance 20 ml/min; Glucose 107 mg/dl (70-99); Potassium 4.2 mmol/L (3.5-5.1); Sodium 133 mmol/L (135-145); eGFR 27.44
--- NOTE | 2024-04-14 06:02 | W.PN.UPDATE ---
Addendum entered and electronically signed by MIKE Espinoza 04/14/24 06:12:
error
K4.2 noted, Lokelma is on hold at present until further evaluated.
Original Note:
Update Note
Progress Note Update
K 4.2 noted, will hold Lactulose at present until further evaluated
[2024-04-14] MEDS: LOKELMA PO (06:15)
--- NOTE | 2024-04-14 06:15 | PTCARENOTE ---
K+ this am is 4.2 Pt is due for kelvin. Discussed with MIKE and kelvin will be held for now until seen by MD in am.
[2024-04-14 07:30] VITALS: BP 125/55
--- NOTE | 2024-04-14 07:47 | CM ---
met with patient at bedside.recurrent endometrial ca,patient on oxcycodone,holding rocephine,no sbp-no bp meds needed,cr 1.9,doctor recs no abd catheter due to risk of infection,parecentesis as needed.plan:home with no needs.
[2024-04-14] MEDS: NEURONTIN 100 MG PO (08:36)
[2024-04-14] MEDS: HEPARIN 5000 UNITS SC (08:36)
[2024-04-14] MEDS: MIRALAX 17 GRAMS PO (08:47)
[2024-04-14] MEDS: DULCOLAX 10 MG PO (08:50)
[2024-04-14] MEDS: DUPHALAC/CHRONULAC PO (08:59)
--- NOTE | 2024-04-14 10:41 | W.PN.GYNONC ---
Today's Communication
-
confirmed with patient and also confirmed that she has an appointment on 04/17 at [place] to start therapy.
Impression / Plan
-
IMP- recurrent endometrial ca with carcinomatosis
plan- patient discussed wishes to transfer care to Dr Campbell/Jorge Luis to [place] office
Subjective / Interval History
-
86 yr old white female feeling better this morning able to move bowels after enema.
Objective Data
-
Lab Results:
04/13/24 04:56
04/14/24 04:53
Physical Exam
Vital Signs / I&O
Vitals
Temp Pulse Resp BP Pulse Ox
98.5 F 88 16 125/55 94
04/14/24 07:30 04/14/24 07:30 04/14/24 07:30 04/14/24 07:30 04/14/24 07:30
I&O
04/12/24 04/13/24 04/14/24 04/15/24
06:59 06:59 06:59 06:59
Intake Total 1140 / 1140 900 / 900 690 / 690 480 / 480
Balance 1140 / 1140 900 / 900 690 / 690 480 / 480
Physical Exam
vss
abdomen soft
Respiratory: Clear
[2024-04-14 11:31] LABS: CA 125 460 U/mL (0-35)
--- NOTE | 2024-04-14 11:43 | CM ---
met with patient who is stable for discharge home with no needs.patient signed imm letter.family to transport home.
[2024-04-14] MEDS: TYLENOL 650 MG PO (13:00)
[2024-04-14 13:20] VITALS: BP 115/53
--- NOTE | 2024-04-14 15:05 | W.PN.HOSP.TC ---
Addendum entered and electronically signed by Laz Chappell MD 04/14/24 15:50:
Moderate PCM - with underlying malignancy
Original Note:
Today's Communication/Plan
-
d/c home
Assessment / Plan
Assessment / Plan
Malignant ascites
- s/p paracentesis 04/09, 2.6L removed. TWBC 550 PMN 10%, gram stain neg. Cytopath pending
- s/p repeat paracentesis of 2.6 L of serosanguineous drainage on 04/12 - TWBC 905 PMN 11.5%
- No signs of SBP, abd pain resolved. some minor persistent leukocytosis.
- Family wondering if patient would benefit with placement of peritoneal drainage catheter, discussed with oncology and recommended against it due to other risk factors. I agree.
- Patient provided prescription for paracentesis weekly.
Metastatic endometrial carcinoma
Peritoneal carcinomatosis
-Patient planned to transition care to Dr. Langston/onc-cash processor with [facility]
-started on pain medication and have excellent pain relief with the current regimen
-Patient planned to follow-up with Dr. Campbell on Wednesday for further initiation of chemotherapy.
Constipation - resolved
-Senokot/MiraLAX does not work usullay per patient
-enema provided
Hyperkalemia -resolved
-reason unclear
-renal function down but close to baseline. not oligouric.
-no K supplement. not on trish/arb currently.
-no reported hemolysis.
-constipated -providing laxatives and should help with luminal loss
-IV lasix 20mg x1
-Lokelma doses ordered
Essential HTN
- hold ARB, see above
- BP controlled without meds
Presumed CKD stage IV
-worsening renal function, in nov 20 GFR
-hold ARB for now
-will need to f/u with nephro
HLD
- resume statin
Normocytic anemia
Thrombocytosis
Hyponatremia
DVT ppx: SC heparin
Code: Full
More than 30 minutes spent in discharge including
Final examination of the patient
Summarizing hospital stay
Instructions for continuing care to all relevant caregivers
Preparation of discharge records, prescriptions, and referral forms
Total time spent (in minutes): 38 mins
Anticipated Discharge: Today
Subjective/Interval History
-
Date of Service: April 14, 2024
Patient had good bowel movement last evening
Denies any abdominal pain/discomfort today
Some abdominal distention
Objective Data
-
Labs:
Laboratory Results
04/14/24
04:53
Sodium 133 L
Potassium 4.2 D
Chloride 100
Carbon Dioxide 26
BUN 33 H
Creatinine 1.8 H
Glucose 107 H
Calcium 8.5
Vital Signs:
Vital Signs
Temp Pulse Resp BP Pulse Ox
98.5 F 86 16 115/53 95
04/14/24 13:20 04/14/24 13:20 04/14/24 13:20 04/14/24 13:20 04/14/24 13:20
I&O
04/13/24 04/14/24 04/15/24
06:59 06:59 06:59
Intake Total 900 / 900 690 / 690 480 / 480
Balance 900 / 900 690 / 690 480 / 480
Review of Systems
-
Respiratory: Reports No Symptoms
Cardiac: Reports No Symptoms
Abdomen/GI: Reports Abdominal Pain; Denies Nausea or Vomiting
Physical Exam
-
General: Comfortable and Cachectic
HEENT: Negative Oxygen
Respiratory: Clear to Auscultation
Cardiac: Regular Rhythm and S1/S2; Negative Murmur or Rub
GI: Soft, Nontender and Distended
Musculoskeletal: No Edema
Neuro: Awake, Alert, Oriented, No Motor Deficits and Nonfocal/Grossly Intact
Psych: Calm
--- NOTE | 2024-04-15 07:24 | W.DCSUMMARY ---
Discharge Summary
Discharge Data
Date of Admission: 04/09/24
Date of Discharge: 04/14/24
-
Pending Results: No
Hospital Course
Discharging Physician : Dr Laz Chappell
Disposition : To home
Primary care physician : Dr Dora Zepeda
Principal Discharge diagnosis :
Recurrent malignant ascites
Hyperkalemia
Acute kidney injury
Constipation
Chronic Discharge diagnosis :
Metastatic endometrial cancer s/p hysterectomy
Peritoneal carcinomatosis
Essential hypertension
Chronic kidney disease stage IV
Hyperlipidemia
Normocytic anemia
Thrombocytosis
Chronic hyponatremia
Hospital Course :
Patient is 83-year-old female with above-mentioned past medical history came to ER for having worsening abdominal distention pain and bloating. Patient have history of endometrial carcinoma with hysterectomy done in the past, patient have
metastatic peritoneal carcinomatosis and resulting recurrent malignant ascites. Interventional radiology was consulted and ER and patient had paracentesis of 2.6 L fluid. Studies ruled out any bacterial peritonitis. After 48 hours patient had a
reaccumulation of fluid and required repeat paracentesis of 2.6 L of fluid. Family requesting possible peritoneal drainage catheter and oncology was involved in care and as patient is planned to be started on chemotherapy in the near future this
was deemed not necessary. Patient is planned to follow-up with gynecological oncology on next Wednesday.
Patient also had hyperkalemia likely with underlying CKD stage IV. Patient was not on any potassium supplement. patient does take ARB/losartan at home for blood pressure control although was being held due to low renal function. Patient was
provided IV Lokelma and dose of Lasix after which patient potassium normalized.
Important imaging findings :
None
Procedure findings :
None
Discharge Plan
-
Patient Disposition: Home with Home Care
Discharge Diagnosis/Procedures: Recurrent malignant ascites, Peritoneal carcinomatosis
Condition: Fair
Diet: Regular
Activity: As tolerated
Driving Restrictions: No driving
Bathing Restrictions: OK to Shower
Others Tests: C
Activity Restrictions/Additional Instructions:
Please contact our Intervention Radiology department for Paracentesis - [phone]
Referrals:
Dante Campbell MD [Active] - 04/17/24
Dora Zepeda MD [Family Provider] - in one week
Prescriptions:
New
polyethylene glycol 3350 [HealthyLax] 17 gram Powder In Packet
17 g PO DAILYPRN PRN (Reason: constipation) Qty: 30 0RF
oxycodone 5 mg Tablet
5 mg PO Q4HPRN PRN (Reason: mod sev pain) Qty: 14 0RF
Continued
sennosides [Senokot] 8.6 mg Tablet
8.6 mg PO HS PRN (Reason: constipation)
ondansetron HCl 8 mg Tablet
8 mg PO QIDPRN PRN (Reason: nausea/vomiting)
acetaminophen [Tylenol Extra Strength] 500 mg Tablet
1,000 mg PO BIDPRN PRN (Reason: mild pain)
pantoprazole 40 mg Tablet,Delayed Release (Dr/Ec)
40 mg PO DAILY PRN (Reason: gerd)
carboxymethylcellulose sodium 1 % Drops, Liquid Gel
0 drp BOTH EYES DAILYPRN PRN (Reason: dry eyes)
Patient Comments:
04/09/2024, per pt., she uses PF eye drops and will place as many drops as she can get into each eye so she doesn't waste it.
rosuvastatin 5 mg Tablet
5 mg PO QPM
Systane (PF) 0.4-0.3 % Dropperette
1 drp BOTH EYES DAILYPRN PRN (Reason: dry eyes)
Discontinued
losartan 50 mg Tablet
50 mg PO DAILY
tramadol 50 mg Tablet
50 mg PO BID PRN (Reason: mild pain)
Discharge Orders:
Discharge Patient (As Directed); Ordered 04/14/24
Ordered By: Laz Chappell
Discharge Date and Time
Discharge Date/Time: 04/14/24 14:18
Print Language: [place]
== END 2024-04-14 14:18 | disposition home or self-care (01) | DRG 755 ==
LOC: 4 EAST ACU 15:29
PROVIDERS: Nurse Practitioner; Radiology Vascular & Interventional Radiology; ADMITTING PHYSICIAN Internal Medicine; ATTENDING PHYSICIAN Hospitalist; CONSULT PHYSICIAN Internal Medicine Hematology & Oncology; EMERGENCY PHYSICIAN Emergency Medicine; FAMILY PHYSICIAN Family Medicine
PROC: 0W9G3ZX Drainage of Peritoneal Cavity, Percutaneous Approach, Diagnostic (ICD-10-PCS; 2024-04-09)
DX: C54.1 Malignant neoplasm of endometrium (principal); C78.6 Secondary malignant neoplasm of retroperitoneum and peritoneum; R18.0 Malignant ascites; E87.1 Hypo-osmolality and hyponatremia; N18.4 Chronic kidney disease, stage 4 (severe); N13.30 Unspecified hydronephrosis; N17.9 Acute kidney failure, unspecified; E44.0 Moderate protein-calorie malnutrition; K59.00 Constipation, unspecified; I95.81 Postprocedural hypotension; E78.00 Pure hypercholesterolemia, unspecified; I12.9 Hypertensive chronic kidney disease with stage 1 through stage 4 chronic kidney disease, or unspecified chronic kidney disease; D72.829 Elevated white blood cell count, unspecified; E87.5 Hyperkalemia; G89.29 Other chronic pain; D64.9 Anemia, unspecified; D75.839 Thrombocytosis, unspecified; Z88.8 Allergy status to other drugs, medicaments and biological substances; Z91.013 Allergy to seafood; Z88.1 Allergy status to other antibiotic agents; Z90.710 Acquired absence of both cervix and uterus; Z68.22 Body mass index [BMI] 22.0-22.9, adult
CPT/HCPCS: 88305; 49083; 74176; 76705; 80048; 80053; 81003; 81015; 82042; 82150; 82962; 83615; 83690; 84157; 85025; 85027; 86304; 87015; 87070; 87086; 87147; 87186; 87205; 88112; 88341; 88342; 88360; 89051; 93005; 96374; 96375; 97162; 97165; 99285; P9047

== ENCOUNTER → 2024-04-18 09:32 | Outpatient (REF) | payer OTHER, SELFPAY ==
[2024-04-18 09:46] VITALS: BP 136/55; BP_SYST 95
[2024-04-18 10:38] VITALS: BP 128/50; BP_SYST 70
[2024-04-18 13:37] LABS: Body Fluid Mononuclear 79.1 %; Body Fluid Polymorphonuclear 20.9 %; Body Fluid Second Tech EM; Body Fluid WBC 1904 /CUMM
== END ==
LOC: RADI 09:32
PROVIDERS: ATTENDING PHYSICIAN Hospitalist; FAMILY PHYSICIAN Family Medicine; REFERRING PHYSICIAN Obstetrics & Gynecology Gynecologic Oncology
DX: C80.0 Disseminated malignant neoplasm, unspecified (principal); R18.0 Malignant ascites; C78.6 Secondary malignant neoplasm of retroperitoneum and peritoneum
CPT/HCPCS: 49083; 89051

== ENCOUNTER 2024-04-20 20:40 | Inpatient (IN) | payer OTHER, SELFPAY ==
[2024-04-20] VITALS (7 sets, daily range): BP systolic 105–144; BP diastolic 45–63; BMI 22.3; BMI 21.8
[2024-04-20 12:11] LABS: % Basophils 0.2 % (0-2); % Immature Granulocytes 0.8 % (0-0.5); % Lymphocytes 8.1 % (20.5-51.1); % Monocytes 7.4 % (1.7-9.3); % Neutrophils 83.5 % (42.2-75.2); Absolute Immature Granulocytes 0.2 10^3/uL (0-0.05); Absolute Lymphocytes 1.7 10^3/uL (1.2-3.4); Absolute Monocytes 1.6 10^3/uL (0.1-0.6); Absolute Neutrophils 17.4 10^3/uL (1.4-6.5); Hematocrit 27.9 % (37.0-47.0); Hemoglobin 9.6 g/dL (12.0-16.0); Mean Corp Hgb Conc. 34.4 g/dL (33.0-37.0); Mean Corpuscular Hgb 30.4 pg (27.0-31.0); Mean Corpuscular Volume 88.3 fL (81.0-99.0); Mean Platelet Volume 8.1 fL (7.4-10.4); Nucleated Red Blood Cells % 0 %; Platelet Count 955 10^3/uL (130-400); Red Blood Cell Count 3.16 10^6/uL (4.20-5.40); Red Cell Dist. Width 13.1 % (11.5-14.5); White Blood Cell Count 20.8 10^3/uL (4.8-10.8)
[2024-04-20 12:33] LABS: ALT (SGPT) < 10 U/L (0-35); AST (SGOT) 41 U/L (14-36); Albumin 2.4 g/dl (3.5-5.0); Alkaline Phosphatase 242 U/L (38-126); Blood Urea Nitrogen 57 mg/dl (7-17); Calcium 8.4 mg/dl (8.4-10.2); Carbon Dioxide 24 mmol/L (22-30); Chloride 95 mmol/L (98-107); Glucose 128 mg/dl (70-99); Sodium 126 mmol/L (135-145); Total Bilirubin 0.3 mg/dl (0.2-1.3); Total Protein 5.1 g/dl (6.3-8.2); eGFR 20.45
--- NOTE | 2024-04-20 17:00 | ED.GENMED ---
History of Present Illness
General
Chief Complaint: Weakness
Source: patient
Exam Limitations: none
Time Seen by Provider: 04/20/24 16:49
Travel History
Have you had any contact with someone who has COVID-19?: No
Do you have any symptoms of coronavirus? Fever > 100 degrees, chills, cough, shortness of breath, sore throat, loss of taste or smell, muscle aches, or headache?: No
History of Present Illness
History of Present Illness:
83-year-old female with known endometrial cancer presents complaining of increased pain in her abdomen distention as well as weakness. She had been on multiple trial medications for her cancer and is due to start chemotherapy. She has had 3
paracentesis in the recent past. She was due for another paracentesis tomorrow morning. The pain increased. She notes chills but no measurable fever. No urinary symptoms. She states she feels dehydrated. No chest pain. No shortness of breath
Past History
Past History
ED Past Medical History: Cancer (Endometrial cancer), HTN and Hypercholesterolemia; Negative NIDDM
ED Past Surgical History: Gynecological
Social History
Tobacco: Non-smoker
Alcohol: Occasional
Personal:
Phy Exam
Physical Exam
Physical Exam:
General: Uncomfortable appearing female no acute respiratory distress
HEENT: Normocephalic mucosa dry neck is supple heart: Regular rate and rhythm no murmurs
Lungs: Clear no wheeze or rales
Abdomen slightly distended soft but tender diffusely
Extremities: No cyanosis
Skin: Warm no rash
Extremities: No cyanosis
Course
Orders/Labs/Results
Orders:
Orders
04/20/24 11:59
Complete Blood Count/With Diff Urgent
Comprehensive Metabolic Panel Urgent
04/20/24 12:40
Osmolality, Random Urine Urgent
Urinalysis Reflex To Culture Urgent
Urine Sodium Urgent
04/20/24 17:02
CT Abd/pel Without Iv Or Oral Urgent
Comment:
Reason For Exam: abdominal pain
04/20/24 17:04
0.9% Sodium Chloride 1000 ml [Nss] 1,000 ml IV BOLUS
04/20/24 17:12
[facility] CONSULT Urgent
Consulting Provider: Rojas Isidro
Was physician already notified: Yes
Reason for Consult/Procedure: paracentesis
Acknowledgement that appropriate orders are entered: Yes
04/20/24 17:13
Body Fluid Cell Count Urgent
What is the Body Fluid: peritoneal fluid
Fluid Culture with Gram Stain Urgent
JABIER Source: Peritoneal Fluid
Specimen Description:
04/20/24 17:38
Lactic Acid Q4H
Comment: CANCEL 2nd LACTIC ACID IF 1st LACTIC ACID IS LESS THAN 2
04/20/24 18:24
Blood Culture Q30M
JABIER Source: Blood/Venous
Specimen Description:
04/20/24 18:25
Blood Culture Q30M
JABIER Source: Blood/Venous
Specimen Description:
04/20/24 19:12
CefTRIAXone [Rocephin] 1,000 mg IV NOW STA
04/20/24 19:21
HYDROmorphone [Dilaudid] 0.5 mg IV NOW STA
Abnormal Lab Results
04/20/24
11:59
WBC 20.8 H 10^3/uL
(4.8-10.8)
RBC 3.16 L 10^6/uL
(4.20-5.40)
Hgb 9.6 L g/dL
(12.0-16.0)
Hct 27.9 L %
(37.0-47.0)
Plt Count 955 H 10^3/uL
(130-400)
Abs Immat Gran (auto) 0.2 H 10^3/uL
(0-0.05)
Absolute Neuts (auto) 17.4 H 10^3/uL
(1.4-6.5)
Absolute Monos (auto) 1.6 H 10^3/uL
(0.1-0.6)
Immature Gran % 0.8 H %
(0-0.5)
Neutrophils % 83.5 H %
(42.2-75.2)
Lymphocytes % 8.1 L %
(20.5-51.1)
Sodium 126 L mmol/L
(135-145)
Chloride 95 L mmol/L
(98-107)
BUN 57 H mg/dl
(7-17)
Creatinine 2.3 H mg/dL
(0.6-1.0)
Glucose 128 H mg/dl
(70-99)
AST 41 H U/L
(14-36)
Alkaline Phosphatase 242 H U/L
(38-126)
Total Protein 5.1 L g/dl
(6.3-8.2)
Albumin 2.4 L g/dl
(3.5-5.0)
04/20/24 11:59
04/20/24 11:59
Vital Signs
Initial and Last Documented VS:
Initial Vital Signs
Temp Pulse Resp BP Pulse Ox
98.0 F 91 16 105/53 98
04/20/24 11:47 04/20/24 11:47 04/20/24 11:47 04/20/24 11:47 04/20/24 11:47
Last Documented Vital Signs
Temp Pulse Resp BP Pulse Ox
97.4 F 72 20 127/45 99
04/20/24 17:28 04/20/24 17:28 04/20/24 17:28 04/20/24 17:28 04/20/24 17:28
MDM/Problems Addressed
Differential Diagnosis Includes:
Abdominal pain, weakness, known endometrial cancer with ascites. Abdomen is not terribly distended on exam. She is quite tender diffusely. Possible peritonitis versus other intra-abdominal process. Will order CT. Cannot do IV contrast for CT
secondary to acute kidney injury with a creatinine of 2.3 and GFR of 20. Patient is also noted to be hyponatremic. She looks dry on exam. I suspect hypovolemic hyponatremia. Osmolality studies pending. Plan on hydrating through her port. CT
pending. Placed call into IR to check availability for possible paracentesis tonight.
*Critical Care Note
Total Time (30-74mins, 75-104mins- exclusive of procedures): Not Applicable
Update Note
Update Note:
CT of the abdomen does demonstrate a ascites. I have discussed these findings with interventional radiology. They did initially agreed to do perform a paracentesis this evening however I just notified me that there is an emergency and department
and they are unable to do the paracentesis until the morning. Will cover for potential peritonitis with Rocephin fluids ordered Dilaudid ordered for pain. Let the admitting team know as well
ED Attending Note
-
Portions of this chart may have been created with voice recognition software.� Occasional wrong word or��sound alike� substitutions may have occurred due to the inherent limitations of voice recognition software.
Discharge Plan
Departure
Patient Disposition: Admit
Date of Disposition: 04/20/24
Time of Disposition: 19:22
Admit to: Telemetry
Presentation/result/management discussed w/ accepting MD/DO: Hospitalist
Discharge Problem:
Abdominal pain
Prescriptions:
No Action
sennosides [Senokot] 8.6 mg Tablet
8.6 mg PO HS PRN (Reason: constipation)
ondansetron HCl 8 mg Tablet
8 mg PO QIDPRN PRN (Reason: nausea/vomiting)
acetaminophen [Tylenol Extra Strength] 500 mg Tablet
1,000 mg PO BIDPRN PRN (Reason: mild pain)
pantoprazole 40 mg Tablet,Delayed Release (Dr/Ec)
40 mg PO DAILY PRN (Reason: gerd)
carboxymethylcellulose sodium 1 % Drops, Liquid Gel
0 drp BOTH EYES DAILYPRN PRN (Reason: dry eyes)
Patient Comments:
04/09/2024, per pt., she uses PF eye drops and will place as many drops as she can get into each eye so she doesn't waste it.
rosuvastatin 5 mg Tablet
5 mg PO QPM
Systane (PF) 0.4-0.3 % Dropperette
1 drp BOTH EYES DAILYPRN PRN (Reason: dry eyes)
polyethylene glycol 3350 [HealthyLax] 17 gram Powder In Packet
17 g PO DAILYPRN PRN (Reason: constipation) Qty: 30 0RF
oxycodone 5 mg Tablet
5 mg PO Q4HPRN PRN (Reason: mod sev pain) Qty: 14 0RF
Referrals:
Dora Zepeda MD [Family Provider] -
Interventions
Interventions:
*Risk Screen - Suicide Last Done: 04/20/24 17:29
*General Assessment Last Done: 04/20/24 17:28
*Neglect/Abuse Screening Last Done: 04/20/24 17:29
*ED COVID-19 Vaccine History Last Done: 04/20/24 11:47
ED- Neurological Assessment Last Done: 04/20/24 17:30
ED- Pulmonary Assessment Last Done: 04/20/24 17:30
Discharge Date and Time
Print Language: YI
[2024-04-20 18:04] LABS: Lactic Acid 1.1 mmol/L (0.7-2.0)
[2024-04-20] MEDS: NSS 1000 IV ×2 (18:13→21:47)
[2024-04-20] MEDS: DILAUDID 0.5 MG IV (19:29)
[2024-04-20] MEDS: ROCEPHIN 1000 MG IV (19:35)
--- NOTE | 2024-04-20 19:47 | HPS.HSE ---
Family Physician
-
Family Physician: Dora Zepeda
Chief Complaint
-
abdominal pain
History of Present Illness
83-year-old female past medical history metastatic endometrial cancer status post prior hysterectomy, peritoneal carcinomatosis hypertension, hypercholesteremia, constipation, presumed CKD 4, normocytic anemia, presenting with increased abdominal
pain radiating to the back, distention and weakness since recent discharge for malignant ascites. She denies fevers or chills. She denies nausea or vomiting. She has been constipated and her last bowel movement 5 days ago.
Patient was recently discharged 5 days ago after being admitted for worsening abdominal distention and pain and bloating. Patient was found to have recurrent malignant ascites status post paracentesis of 2.6 L. Studies ruled out bacterial
peritonitis. Patient reaccumulation of fluid and repeat paracentesis.
Denies smoking or alcohol use.
Medical History
Past Medical History
Past Medical History: Reports Other (metastatic endometrial cancer status post prior hysterectomy, peritoneal carcinomatosis hypertension, hypercholesteremia, constipation, presumed CKD 4, normocytic anemia)
Past Surgical History: Reports Other ( Gynecological)
Social History
Tobacco: Non-smoker
Alcohol: None
Drug: None
Family History
Family History: Not pertinent
Allergies / Home Medications
Allergies reflects when Allergies were last updated in [facility].
Home Medications with original date entered in [facility]
Allergy/Medication List:
Allergies
Allergy/AdvReac Type Severity Reaction Status Date / Time
cefaclor [From [facility]] Allergy Rash Verified 04/20/24 11:50
shrimp Allergy Rash Uncoded 04/20/24 11:50
Home Medications
acetaminophen 500 mg tablet (Tylenol Extra Strength) 1,000 mg PO QID 04/09/24
carboxymethylcellulose sodium 1 % eye liquid gel drops 0 drp BOTH EYES DAILYPRN PRN dry eyes 04/09/24
ondansetron HCl 8 mg tablet 8 mg PO QIDPRN PRN nausea/vomiting 04/09/24
peg 400-propylene glycol (PF) 0.4 %-0.3 % eye drops in a dropperette (Systane (PF)) 1 drp BOTH EYES DAILYPRN PRN dry eyes 04/09/24
rosuvastatin 5 mg tablet 5 mg PO QPM 04/09/24
oxycodone 5 mg tablet 5 mg PO Q4HPRN PRN mod sev pain #14 tabs 04/14/24
polyethylene glycol 3350 17 gram oral powder packet (HealthyLax) 17 g PO DAILYPRN PRN constipation #30 ea 04/14/24
bisacodyl 5 mg tablet,delayed release (Dulcolax (bisacodyl)) 15 mg PO HSPRN PRN constipation 04/20/24
lidocaine-prilocaine 2.5 %-2.5 % topical cream 1 applic topical DIRECTED port access 04/20/24
Review of Systems
-
History Source: Patient
A 12 point ROS was completed and negative except as noted: Yes
Constitutional: Reports No Symptoms
EENT: Reports No Symptoms
Respiratory: Reports No Symptoms
Cardiac: Reports No Symptoms
Abdomen/GI: Reports See HPI
: Reports No Symptoms
Musculoskeletal: Reports No Symptoms
Skin: Reports No Symptoms
Neurological: Reports No Symptoms
Endocrine: Reports No Symptoms
Hematologic/Lymphatic: Reports No Symptoms
Psych: Reports No Symptoms
Physical Exam
Vital Signs
Vital Signs
Temp Pulse Resp BP Pulse Ox
97.9 F 78 14 127/46 98
04/20/24 19:29 04/20/24 19:29 04/20/24 19:29 04/20/24 19:29 04/20/24 19:29
Physical Exam
General: Well Developed, Well Nourished and No Apparent Distress
HEENT: NormoCephalic, Moist mucous membranes and Atraumatic
Respiratory: Clear
Cardiac: S1/S2 and Regular Rhythm; No Murmur or Rub
GI: Soft, Non Distended, Normal Bowel Sounds, Tender and Distended; No Organomegaly
Rectal: Deferred by Provider
Musculoskeletal: No Clubbing, No Cyanosis and No Edema
Skin: No Rash
Neuro: Nonfocal/grossly intact
Laboratory Results
-
04/20/24 11:59
04/20/24 11:59
Laboratory Results
Lactic Acid 1.1 mmol/L (0.7-2.0) 04/20/24 17:38
Total Bilirubin 0.3 mg/dl (0.2-1.3) 04/20/24 11:59
AST 41 U/L (14-36) H 04/20/24 11:59
ALT < 10 U/L (0-35) 04/20/24 11:59
Alkaline Phosphatase 242 U/L (38-126) H 04/20/24 11:59
Data Reviewed
-
Lab Data: Labs Reviewed by me
Old Records: Reviewed
Impression/Plan
-
IMPRESSION:
PLAN:
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
-CT abdomen pelvis result pending
-IR consulted for paracentesis to be performed in a.m.
-Ordered paracentesis studies
-Empiric ceftriaxone for SBP coverage
-Oncology recommended against peritoneal drainage catheter during last admission
# History of metastatic endometrial carcinoma status post prior hysterectomy
-Status post pembrolizumab for a year progression of disease, more recently treated with hormonal therapy which was ineffective
-Patient due to start chemotherapy soon with Taxol/carboplatin with [facility]
-Continue oxycodone
#Constipation exacerbated by oxycodone
-Continue senna, MiraLAX
-Try mag citrate, enema if no bowel movement tomorrow
# Acute kidney injury on CKD 4
-Creatinine of 2.3 from 1.8 on discharge
-Gentle IV fluids
-will benefit from albumin after para
# Worsening of chronic hyponatremia secondary to decreased solute intake/SIADH of malignancy
-IV fluids given in ER
-Sodium 126 from 133
-Fluid restriction 40 ounces
Essential hypertension
Hyperlipidemia
-Continue statin
Normocytic anemia
-Hemoglobin stable
DNR/DNI
DVT prophylaxis�heparin
Regular diet
--- NOTE | 2024-04-20 21:17 | PTCARENOTE ---
Pt received from ED to [facility]-2. Pt oriented to room and call pinto.
[2024-04-20] MEDS: HEPARIN 5000 UNITS SC (21:26)
[2024-04-20] MEDS: CITROMA 300 ML PO (21:26)
[2024-04-20 21:53] LABS: Urine Albumin Negative (Neg - Trace); Urine Bilirubin Negative (Negative); Urine Character Clear (Clear); Urine Color Yellow; Urine Glucose Negative (Negative); Urine Ketone Negative (Negative); Urine Leukocyte Trace (Negative); Urine Nitrite Negative (Negative); Urine Occult Blood Negative (Negative); Urine Specific Gravity 1.025 (<1.030); Urine Urobilinogen Negative (Neg - 1+)
[2024-04-20 21:57] LABS: Osmolality Urine 497 mOsm/kg (300-900)
[2024-04-20 22:06] LABS: Urine Hyaline Cast 0-2 /LPF (0-2)
[2024-04-20 22:07] LABS: Urine Bacteria Moderate (Negative); Urine Red Blood Cell 0-2 /HPF (0-2)
[2024-04-20 22:11] LABS: Urine Sodium < 5 mmol/L (30-90)
[2024-04-21] VITALS (7 sets, daily range): BP systolic 83–151; BP diastolic 46–55; BMI 21.8
[2024-04-21] MEDS: DILAUDID 0.5 MG IV ×4 (00:50→20:04)
[2024-04-21 05:07] LABS: % Basophils 0.2 % (0-2); % Eosinophils 0.2 % (0-6); % Immature Granulocytes 0.9 % (0-0.5); % Monocytes 9.3 % (1.7-9.3); % Neutrophils 81.4 % (42.2-75.2); Absolute Immature Granulocytes 0.2 10^3/uL (0-0.05); Absolute Lymphocytes 1.4 10^3/uL (1.2-3.4); Absolute Monocytes 1.6 10^3/uL (0.1-0.6); Hematocrit 25.7 % (37.0-47.0); Hemoglobin 8.9 g/dL (12.0-16.0); Mean Corp Hgb Conc. 34.6 g/dL (33.0-37.0); Mean Corpuscular Hgb 30.7 pg (27.0-31.0); Mean Corpuscular Volume 88.6 fL (81.0-99.0); Mean Platelet Volume 8.1 fL (7.4-10.4); Nucleated Red Blood Cells % 0 %; Platelet Count 865 10^3/uL (130-400); Red Cell Dist. Width 13.2 % (11.5-14.5); White Blood Cell Count 17.2 10^3/uL (4.8-10.8)
[2024-04-21 05:14] LABS: ALT (SGPT) < 10 U/L (0-35); AST (SGOT) 38 U/L (14-36); Albumin 2.1 g/dl (3.5-5.0); Alkaline Phosphatase 215 U/L (38-126); Blood Urea Nitrogen 55 mg/dl (7-17); Calcium 7.9 mg/dl (8.4-10.2); Carbon Dioxide 25 mmol/L (22-30); Chloride 99 mmol/L (98-107); Estimated Creatinine Clearance 18 ml/min; Glucose 123 mg/dl (70-99); Potassium 4.5 mmol/L (3.5-5.1); Sodium 129 mmol/L (135-145); Total Bilirubin 0.2 mg/dl (0.2-1.3); Total Protein 4.7 g/dl (6.3-8.2); eGFR 24.18
[2024-04-21] MEDS: HEPARIN 5000 UNITS SC ×2 (08:43→20:03)
[2024-04-21 08:53] LABS: Body Fluid Mononuclear 64.5 %; Body Fluid Polymorphonuclear 35.5 %; Body Fluid WBC 4107 /CUMM
[2024-04-21 09:05] LABS: Body Fluid Albumin 1.3 g/dl; Body Fluid Amylase 35 U/L; Body Fluid LDH 1947 U/L; Body Fluid Protein 3.2 g/dl
--- NOTE | 2024-04-21 09:13 | CON.ONC ---
Addendum entered and electronically signed by Chevy Ho MD 04/21/24 12:17:
04/21/24
Oncology Addendum:
Patient seen and evaluated and agree w/ COURT BAILIFF note and plan as outlined
-stage IV metastatic endometrial cancer
-has not initiated chemotherpay w/ [facility] - Dr. Garcia
-recurrent ascites - s/p paracentesis - await studies
-acute on chronic renal insufficiency - w/ right sided hydro - creatinine stable - urology following
-follow clinically/ supportive care
will continue to follow with you
Original Note:
Impression
Impression
Metastatic endometrial cancer
Recurrent peritoneal carcinomatosis
Malignant ascites s/p paracentesis x3
Abdominal distention
Diffuse abdominal pain/tenderness
Acute kidney injury
Severe hydronephrosis right kidney
Recent urinary tract infection
Hyponatremia
Leukocytosis
Acute on chronic anemia
Reactive thrombocytosis
Plan
Plan
04/21 WBC 17.2, Hgb 8.9, Hct 25.7, PLT 865
Thrombocytosis noted as of 04/09/24
CBC with diff daily
Transfuse as needed to maintain Hgb >7.5
Additional blood work has been ordered and remains pending
Paracentesis performed today in [facility]
Blood cultures, urine culture pending
Consider Urology evaluation for nephrostomy
Constipation management
Diet as tolerated
Kpad for comfort with back pain
PT/OT, OOB activity as able
Supportive care
Emotional support
The [facility] office has been updated of patient's clinical status as she was scheduled to initiate chemotherapy 04/28/24 in the [place] office with Carbo/Taxol/Bevacizumab. We will continue to follow.
Patient History
History of Present Illness
Alejandra Rhoades is an 83 year old female with history of endometrial cancer with carcinomatosis well known to Dr. Campbell with [facility]. She was recently admitted earlier this month with abdominal pain requiring paracentesis. She was diagnosed in 2013
s/p total abdominal hysterectomy with recurrent carcinomatosis in 2021. She had been receiving Keytruda x1 year, unfortunately, with progression of disease followed by hormonal therapy (Letrozole). She has been in the process of transferring care to [facility] under the care of Dr. Campbell and Dr. Garcia to initiate chemotherapy locally in the [place] office with Carbo/Taxol/Avastin combination. Abnormal outpatient lab work was reviewed yesterday, 04/20, with acute symptoms of worsening abdominal
distention and pain, weakness, poor appetite, and chills. She was referred to the ER for further evaluation.
Past-Medical/Surgical History
Metastatic endometrial cancer s/p PAOLO
Peritoneal carcinomatosis
Hypertension
Hypercholesterolemia
Constipation
CKD
Anemia
Patient Medication
�Medication �Instructions �Recorded �Confirmed �Last Taken �Type
acetaminophen 500 mg tablet 1,000 mg PO QID 04/09/24 04/20/24 04/20/24 History
(Tylenol Extra Strength)
carboxymethylcellulose sodium 1 % 0 drp BOTH EYES DAILYPRN PRN dry 04/09/24 04/20/24 4 Days Ago History
eye liquid gel drops eyes ~04/05/24
ondansetron HCl 8 mg tablet 8 mg PO QIDPRN PRN nausea/vomiting 04/09/24 04/20/24 2 Days Ago History
~04/18/24
peg 400-propylene glycol (PF) 0.4 1 drp BOTH EYES DAILYPRN PRN dry 04/09/24 04/20/24 04/08/24 History
%-0.3 % eye drops in a dropperette eyes
(Systane (PF))
rosuvastatin 5 mg tablet 5 mg PO QPM 04/09/24 04/20/24 1 Week Ago History
~04/13/24
oxycodone 5 mg tablet 5 mg PO Q4HPRN PRN mod sev pain 04/14/24 04/20/24 04/20/24 Rx
#14 tabs
polyethylene glycol 3350 17 gram 17 g PO DAILYPRN PRN constipation 04/14/24 04/20/24 Unknown Rx
oral powder packet (HealthyLax) #30 ea
bisacodyl 5 mg tablet,delayed 15 mg PO HSPRN PRN constipation 04/20/24 04/20/24 Unknown History
release (Dulcolax (bisacodyl))
lidocaine-prilocaine 2.5 %-2.5 % 1 applic topical DIRECTED port 04/20/24 04/20/24 04/20/24 History
topical cream access
losartan 50 mg tablet 50 mg PO DAILY 04/20/24 04/20/24 Unknown History
Active Medications
Generic Name Dose Route Start Last Admin
Trade Name Freq PRN Reason Stop Dose Admin
Ceftriaxone Sodium 2,000 mg 04/21/24 20:00
Ceftriaxone 2,000 Mg/20 Ml Vial IV
Q24H SILVERIO
Heparin Sodium 5,000 units 04/20/24 21:19 04/21/24 08:43
Heparin 5,000 Units/Ml 1 Ml Vial SC 05/18/24 21:18 5,000 units
Q12 SILVERIO Administration
Hydromorphone HCl 0.5 mg 04/21/24 04:52 04/21/24 05:02
Hydromorphone 0.5 Mg/0.5 Ml Syringe IV 05/05/24 04:50 0.5 mg
Q4HPRN PRN Administration
moderate to severe pain
Sodium Chloride 1,000 mls @ 80 mls/hr 04/20/24 21:19 04/20/24 21:47
Nss IV 1,000 mls
.[id number] SILVERIO Administration
Sodium Chloride 0 flush 04/20/24 22:00
Sodium Chloride 0.9% (Flush) Syringe IV 05/18/24 21:59
PER PROTOCOL SILVERIO
Sterile Water 20 ml 04/21/24 20:00
Sterile Water For Injection 20 Ml Vial IV 05/19/24 19:59
Q24H SILVERIO
Review of Systems
-
History Source: Patient, Coordinated Provider and Records
Constitutional: Reports No Appetite, Fatigue and Weakness
EENT: Reports No Symptoms
Respiratory: Reports No Symptoms
Cardiac: Reports No Symptoms
GI: Reports Abdominal Pain, Constipated and Bloated
Breast: Reports N/A
: Reports No Symptoms
Musculoskeletal: Reports Muscle Pain (lower back )
Skin: Reports No Symptoms
Neuro: Reports Weakness
Endocrine: Reports No Symptoms
Hematologic/Lymphatic: Reports No Symptoms
Allergy / Immunology: Reports No Symptoms
Psych: Reports No Symptoms
Physical Exam
-
Alejandra is resting in bed. She reports 6 out of 10 abdominal pain and back pain. She states she is severely constipated by cannot tolerate drinking the mag citrate due to nausea and poor appetite.
General: Well Developed, Well Nourished, No Apparent Distress, Pain and Conversant
HEENT: Negative Jaundice
Cardiology: S1 and S2
Pulmonary: Clear
GI: Distended
Musculoskeletal: No Edema
Extremities: Pulses Present
Neurology: Non Focal
Skin: Warm and Dry
Hematologic / Lymphatic: No Petechiae
Psych: Calm
Labs
Lab Results
WBC 17.2 10^3/uL (4.8-10.8) H 04/21/24 04:29
RBC 2.90 10^6/uL (4.20-5.40) L 04/21/24 04:29
Hgb 8.9 g/dL (12.0-16.0) L 04/21/24 04:29
Hct 25.7 % (37.0-47.0) L 04/21/24 04:29
MCV 88.6 fL (81.0-99.0) 04/21/24 04:
MCH 30.7 pg (27.0-31.0) 04/21/24 04:
MCHC 34.6 g/dL (33.0-37.0) 04/21/24 04:
RDW 13.2 % (11.5-14.5) 04/21/24 04:
Plt Count 865 10^3/uL (130-400) H 04/21/24 04:
MPV 8.1 fL (7.4-10.4) 04/21/24 04:
Abs Immat Gran (auto) 0.2 10^3/uL (0-0.05) H 04/21/24 04:
Absolute Neuts (auto) 14.0 10^3/uL (1.4-6.5) H 04/21/24 04:
Absolute Lymphs (auto) 1.4 10^3/uL (1.2-3.4) 04/21/24 04:
Absolute Monos (auto) 1.6 10^3/uL (0.1-0.6) H 04/21/24 04:
Absolute Eos (auto) 0.0 10^3/uL (0-0.7) 04/21/24 04:
Absolute Basos (auto) 0.0 10^3/uL (0-0.2) 04/21/24 04:
Immature Gran % 0.9 % (0-0.5) H 04/21/24 04:
Neutrophils % 81.4 % (42.2-75.2) H 04/21/24 04:
Lymphocytes % 8.0 % (20.5-51.1) L 04/21/24 04:
Monocytes % 9.3 % (1.7-9.3) 04/21/24:
Eosinophils % 0.2 % (0-6) 04/21/24 04:
Basophils % 0.2 % (0-2) 04/21/24 04:
Creatinine 2.0 mg/dL (0.6-1.0) H 04/21/24 04:
Vital Signs
Vital Signs
Temp Pulse Resp BP Pulse Ox
98.3 F 83 15 131/51 95
04/21/24 07:30 04/21/24 08:21 04/21/24 08:21 04/21/24 08:21 04/21/24 08:00
[2024-04-21] MEDS: NSS 1000 IV ×2 (09:22→21:48)
[2024-04-21 09:38] LABS: Body Fluid Second Tech EF
[2024-04-21 10:27] LABS: Reticulocyte Count 2.1 % (0.4-2.8)
[2024-04-21 10:41] LABS: LDH 532 U/L (120-246)
[2024-04-21 10:43] LABS: Iron < 20 ug/dl (37-170)
[2024-04-21 10:51] LABS: Percent Saturation 13.79309 % (20-50); Total Iron Binding Capacity 145 ug/dl (265-497)
--- NOTE | 2024-04-21 11:05 | W.PN.HOSP.TC ---
Today's Communication/Plan
-
cont abx
f/u cultures
id consulted
holding off on nephrostomy tube
Assessment / Plan
Assessment / Plan
Physical Exam
General: Well Developed, Well Nourished and No Apparent Distress
HEENT: NormoCephalic, Moist mucous membranes and Atraumatic
Respiratory: Clear
Cardiac: S1/S2 and Regular Rhythm; No Murmur or Rub
GI: Soft, Non Distended, Normal Bowel Sounds, Tender and Distended upon palpation - radiating to right back. No Organomegaly
Rectal: Deferred by Provider
Musculoskeletal: No Clubbing, No Cyanosis and No Edema
Skin: No Rash
Neuro: Nonfocal/grossly intact
PLAN:
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
# Spontaneous bacterial peritonitis
� Status post paracentesis 04/21
� Continue ceftriaxone
� Follow-up ascitic fluid cultures
� ID consulted
�Oncology consulted
-Oncology recommended against peritoneal drainage catheter during last admission due to risk of infection
# History of metastatic endometrial carcinoma status post prior hysterectomy
-Status post pembrolizumab for a year progression of disease, more recently treated with hormonal therapy which was ineffective
-Patient due to start chemotherapy soon with Taxol/carboplatin with [facility]
-Continue oxycodone
� Oncology on board
#Constipation exacerbated by oxycodone
-Continue senna, MiraLAX
-Try mag citrate, enema if no bowel movement tomorrow
# CKD 4
#Severe Right Hydronephrosis
-Creatinine of 2.3 from 1.8 on discharge
-Gentle IV fluids
-after discussion with urology and risk of infection, favoring holding off nephrostomy tube - especially with renal function stability
# Worsening of chronic hyponatremia secondary to decreased solute intake/SIADH of malignancy
-IV fluids given in ER
-Sodium 126 from 133
-Fluid restriction 40 ounces
�Continue to monitor
#Chronic thrombocytosis
� Most likely secondary to malignancy +acute infection
#Essential hypertension
Hyperlipidemia
-Continue statin
#Anemia of chronic disease
Normocytic anemia
-Hemoglobin stable
DNR/DNI
DVT prophylaxis�heparin
Regular diet
Total time spent on today's encounter was 50 minutes which included time spent in counseling the patient/family regarding diagnosis and treatment plan as listed above, goals of care, and symptom management. Case was discussed with nursing staff,
specialists, and care coordinators/case management. All labs and imaging personally reviewed by me. Remainder the time spent in detailed review of previous records, lab data, imaging, and other medical provider documentation.
Anticipated Discharge: > 48 hours
Subjective/Interval History
-
Date of Service: April 21, 2024
pain still present despite para. fluid indicative of SBP;
Objective Data
-
Labs:
Laboratory Results
04/21/24
04:29
WBC 17.2 H
Hgb 8.9 L
Hct 25.7 L
Plt Count 865 H
Sodium 129 L
Potassium 4.5
Chloride 99
Carbon Dioxide 25
BUN 55 H
Creatinine 2.0 H
Glucose 123 H
Calcium 7.9 L
Total Bilirubin 0.2
AST 38 H
ALT < 10
Alkaline Phosphatase 215 H
Vital Signs:
Vital Signs
Temp Pulse Resp BP Pulse Ox
98.3 F 83 15 131/51 95
04/21/24 07:30 04/21/24 08:21 04/21/24 08:21 04/21/24 08:21 04/21/24 08:00
I&O
04/20/24 04/21/24 04/22/24
06:59 06:59 06:59
Intake Total 990 / 990
Balance 990 / 990
Review of Systems
-
History Source: Patient
All other systems: Not reviewed unless documented
Data Reviewed
-
CT Scan: Image personally visualized and interpreted and Report Reviewed by me
Labs: Labs Reviewed by me
--- NOTE | 2024-04-21 15:08 | CON.ID ---
Consultation
-
Date/Time Consultation Requested: April 21, 2024 1019
Date/Time Consultation Performed: April 21, 2024 1510
Requesting Provider: Dr. Julien Borja
Performing Provider: Dr. Anne Marie Allen
Reason for Consultation: SBP
Chief Complaint / Past History
Chief Complaint
Abdominal pain
History of Present Illness
83-year-old female with endometrial cancer status initially diagnosed 2013 status post post PAOLO , with recurrence 2021, peritoneal carcinomatosis ,status post vulvectomy failed Keytruda and hormone therapy which was discontinued approximately 3
weeks ago. She was to initiate chemotherapy in March. However she was admitted from April 09 to April 14 with abdominal distention and pain status post paracentesis x 2. Pathology confirmed malignancy. Culture was negative. Patient was discharged to
home. She had paracentesis of 2.5 L fluid on April 18. She came back to the hospital April 20 due to increased abdominal distention, pain, poor appetite and chills. White count 20.8. She received ceftriaxone in the ER. Today underwent 1.25 L
paracentesis. She reports abdominal pain slightly improved after the paracentesis. Pain radiates to her back. She also has right hydronephrosis from the carcinomatosis. No flank pain. also she came in with GABY on CKD 4. Creatinine clearance is
improving. She does not have any urinary symptoms. She has chronic constipation from pain meds.
Past History
Additional Past Medical History:
Stage IV metastatic endometrial cancer (recurrence) failed tx, has not initiated chemo
Carcinomatosis requiring frequent paracentesis
Severe right hydronephrosis due to carcinomatosis
CKD 4
Hypertension
Dyslipidemia
Constipation
PAOLO
Allergy History:
cefaclor [From Ceclor] Allergy (Verified 04/20/24 11:50)
Rash
shrimp Allergy (Verified 04/20/24 21:21)
RASH-Does eat shrimp
Medications Reviewed: Yes
Current Antibiotics:
Ceftriaxone day 2
Social History
Tobacco: Non-Smoker
Alcohol: None
Drug: None
Family History
Family History: Not Pertinent
Review of Systems
Review of Systems
General: Chills and Change in Appetite; Negative Fever
HEENT: Negative Sinus Problems, Headache or Pharyngitis
Cardiovascular: Negative Chest Pain
Respiratory: Negative Dyspnea or Cough
Gasteroenterology: Negative Nausea or Vomiting
Genital / Urological: Negative Dysuria or Flank Pain
Endocrine: Weakness
Neurological: Negative Headache or Dizziness
All systems: All other systems were reviewed and were negative
Vital Signs
Temp Pulse Resp BP Pulse Ox
98.3 F 83 15 131/51 95
04/21/24 07:30 04/21/24 08:21 04/21/24 08:21 04/21/24 08:21 04/21/24 08:00
Physical Exam
Physical Exam
Constitutional: Non-toxic
Eyes: No Conjunctival Hemorrhage and Sclera Anicteric
Cardiovascular: Regular Rate and S1/S2
Pulmonary: Clear
Gastrointestinal: Soft, Tender (mild tender more on LLQ) and Distended
Extremities: Negative Edema
Neurological: AO x 3
Lines: Port (RCW no erythema)
Lab / Diagnostic Study Results
04/21/24 04:29
04/21/24 04:29
Abs Immat Gran (auto) 0.2 10^3/uL (0-0.05) H 04/21/24 04:29
Absolute Neuts (auto) 14.0 10^3/uL (1.4-6.5) H 04/21/24 04:29
Absolute Lymphs (auto) 1.4 10^3/uL (1.2-3.4) 04/21/24 04:29
Absolute Monos (auto) 1.6 10^3/uL (0.1-0.6) H 04/21/24 04:29
Absolute Basos (auto) 0.0 10^3/uL (0-0.2) 04/21/24 04:29
Immature Gran % 0.9 % (0-0.5) H 04/21/24 04:29
Neutrophils % 81.4 % (42.2-75.2) H 04/21/24 04:29
Lymphocytes % 8.0 % (20.5-51.1) L 04/21/24 04:29
Monocytes % 9.3 % (1.7-9.3) 04/21/24 04:29
Eosinophils % 0.2 % (0-6) 04/21/24 04:29
Basophils % 0.2 % (0-2) 04/21/24 04:29
Lactic Acid 1.1 mmol/L (0.7-2.0) 04/20/24 17:38
Ur Squamous Epith Cells 6-10 /LPF (Few) 04/20/24 21:46
Microbiology Results
Micro:
04/21/24 08:07 Body Fluid Culture - Pending
Peritoneal Fluid Gram Stain - Preliminary
04/20/24 21:46 Urine Culture - Pending
Urine
04/20/24 18:25 Blood Culture - Pending
Blood/Venous
04/20/24 18:24 Blood Culture - Pending
Blood/Venous
04/20/24 CT a/p wo : Severely limited examination without IV and oral contrast. There is a slight decrease in overall ascites, patient has had an interval paracentesis. There is persistent peritoneal metastatic disease. There is persistent severe
hydronephrosis of the right kidney. Likely related to the carcinomatosis. Moderate stool in the colon. No bowel obstruction. No free air. Small left pleural effusion and left base atelectasis unchanged.
Assessment / Plan
# Recurrent ascites due to peritoneal carcinomatosis s/p paracentesis x 4 in one month
# Leukocytosis
# Stage IV endometrial cancer with progression on Keytruda, has not initiated chemo
# Chronic right hydronephrosis due to carcinomatosis
# GABY on CKD4 improved
- 04/21/24 peritoneal fluid: 4,107 wbc, 64.5% lymphocytes, 36% polys. Cx pending
Malignant peritoneal fluid analysis can appear similar to that of SBP
However, she received abx prior to paracentesis, which may mask culture.
Will treat SBP empirically. Continue ceftriaxone.
-Follow wbc.
--- NOTE | 2024-04-21 16:22 | CM ---
Met with patient and daughter/secondary contact, Alia Chan, #[phone] qt bedside; initial assessment completed
Pharmacy verified: [facility], [place]
Patient has a hx of endometrial CA. Reported she lives with her in a [place] w/basement; 2 steps to enter, 12 steps down to basement; railings present; bathroom has tub w/shower; bench available
PLOF: report that her assists with ADLs; she is ambulating without a device but holds onto the hernández; drives; daughter lives nearby to assist if needed
SNF/Rehab/Home Health utilization history: none
Transportation: will provide ride home
Plan: to be determined pending hospital course; will monitor for DC needs
[2024-04-21] MEDS: ZOFRAN 4 MG IV (17:28)
[2024-04-21] MEDS: STERILE WATER FOR INJECTION 20 ML IV (20:04)
[2024-04-21] MEDS: ROCEPHIN 2000 MG IV (20:04)
[2024-04-22] MEDS: DILAUDID 0.5 MG IV ×6 (00:45→23:16)
[2024-04-22 06:47] LABS: Hematocrit 24.3 % (37.0-47.0); Hemoglobin 8.1 g/dL (12.0-16.0); Mean Corp Hgb Conc. 33.3 g/dL (33.0-37.0); Mean Corpuscular Hgb 30.2 pg (27.0-31.0); Mean Corpuscular Volume 90.7 fL (81.0-99.0); Mean Platelet Volume 8.2 fL (7.4-10.4); Platelet Count 747 10^3/uL (130-400); Red Blood Cell Count 2.68 10^6/uL (4.20-5.40); Red Cell Dist. Width 13.3 % (11.5-14.5)
[2024-04-22 07:10] LABS: ALT (SGPT) < 10 U/L (0-35); AST (SGOT) 36 U/L (14-36); Albumin 1.7 g/dl (3.5-5.0); Alkaline Phosphatase 258 U/L (38-126); Blood Urea Nitrogen 49 mg/dl (7-17); Calcium 7.9 mg/dl (8.4-10.2); Carbon Dioxide 22 mmol/L (22-30); Chloride 104 mmol/L (98-107); Estimated Creatinine Clearance 21 ml/min; Glucose 111 mg/dl (70-99); Magnesium 2.8 mg/dl (1.6-2.3); Potassium 4.7 mmol/L (3.5-5.1); Sodium 131 mmol/L (135-145); Total Bilirubin 0.2 mg/dl (0.2-1.3); eGFR 29.39
[2024-04-22 07:25] VITALS: BP 121/55
[2024-04-22] MEDS: HEPARIN 5000 UNITS SC ×2 (07:52→20:11)
[2024-04-22 08:49] VITALS: BP 134/57; PULSE 85; O2SAT 96
[2024-04-22] MEDS: NSS 1000 IV (09:11)
--- NOTE | 2024-04-22 13:21 | W.PN.HOSP.TC ---
Today's Communication/Plan
-
cont abx
f/u cultures, wbc
pain control
Assessment / Plan
Assessment / Plan
Physical Exam
General: Well Developed, Well Nourished and No Apparent Distress
HEENT: NormoCephalic, Moist mucous membranes and Atraumatic
Respiratory: Clear
Cardiac: S1/S2 and Regular Rhythm; No Murmur or Rub
GI: Soft, Non Distended, Normal Bowel Sounds, Tender and Distended upon palpation - radiating to right back. No Organomegaly
Rectal: Deferred by Provider
Musculoskeletal: No Clubbing, No Cyanosis and No Edema
Skin: No Rash
Neuro: Nonfocal/grossly intact
PLAN:
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
# ?Spontaneous bacterial peritonitis
� Status post paracentesis 04/21 - fluid count obscure as can misrepresent SBP when Malignant peritoneal fluid is present
� Continue ceftriaxone empirically
� Follow-up ascitic fluid cultures
� ID consulted
-F/u WBC
�Oncology consulted
-Oncology recommended against peritoneal drainage catheter during last admission due to risk of infection
# History of metastatic endometrial carcinoma status post prior hysterectomy
-Status post pembrolizumab for a year progression of disease, more recently treated with hormonal therapy which was ineffective
-Patient due to start chemotherapy soon with Taxol/carboplatin with [facility]
-Continue oxycodone
� Oncology on board
#Constipation exacerbated by oxycodone
-Continue senna, MiraLAX
-Try mag citrate, enema if no bowel movement tomorrow
# CKD 4
#Severe Right Hydronephrosis
-Creatinine of 2.3 from 1.8 on discharge
-Gentle IV fluids
-after discussion with urology and risk of infection, favoring holding off nephrostomy tube - especially with renal function stability
# Worsening of chronic hyponatremia secondary to decreased solute intake/SIADH of malignancy
-IV fluids given in ER
-Sodium 126 from 133
-Fluid restriction 40 ounces
�Continue to monitor
#Chronic thrombocytosis
� Most likely secondary to malignancy +acute infection
#Essential hypertension
Hyperlipidemia
-Continue statin
#Anemia of chronic disease
Normocytic anemia
-Hemoglobin stable
DNR/DNI
DVT prophylaxis�heparin
Regular diet
Total time spent on today's encounter was 51 minutes which included time spent in counseling the patient/family regarding diagnosis and treatment plan as listed above, goals of care, and symptom management. Case was discussed with nursing staff,
specialists, and care coordinators/case management. All labs and imaging personally reviewed by me. Remainder the time spent in detailed review of previous records, lab data, imaging, and other medical provider documentation.
Anticipated Discharge: Within 24 hours
Subjective/Interval History
-
Date of Service: April 22, 2024
pain still present intermittently
Objective Data
-
Labs:
Laboratory Results
04/22/24
05:54
WBC 15.0 H
Hgb 8.1 L
Hct 24.3 L
Plt Count 747 H
Sodium 131 L
Potassium 4.7
Chloride 104
Carbon Dioxide 22
BUN 49 H
Creatinine 1.7 H
Glucose 111 H
Calcium 7.9 L
Total Bilirubin 0.2
AST 36
ALT < 10
Alkaline Phosphatase 258 H
Vital Signs:
Vital Signs
Temp Pulse Resp BP Pulse Ox
98.1 F 84 16 121/55 99
04/22/24 07:25 04/22/24 07:25 04/22/24 07:25 04/22/24 07:25 04/22/24 07:50
I&O
04/21/24 04/22/24 04/23/24
06:59 06:59 06:59
Intake Total 990 / 990 1670 / 1670
Balance 1669
Review of Systems
-
History Source: Patient
All other systems: Not reviewed unless documented
Physical Exam
-
General: Comfortable and Cachectic
HEENT: Negative Oxygen
Respiratory: Clear to Auscultation
Cardiac: Regular Rhythm and S1/S2; Negative Murmur or Rub
GI: Soft, Nontender and Distended
Musculoskeletal: No Edema
Neuro: Awake, Alert, Oriented, No Motor Deficits and Nonfocal/Grossly Intact
Psych: Calm
Data Reviewed
-
CT Scan: Image personally visualized and interpreted and Report Reviewed by me
Labs: Labs Reviewed by me
--- NOTE | 2024-04-22 14:30 | W.PN.ID1 ---
Date of Service
Date of Service: April 22, 2024
Today's Communication
Continue ceftriaxone (d3). At time of discharge, transition to Augmentin 875mg po bid through 04/26/24.
Assessment / Plan
# Recurrent ascites due to peritoneal carcinomatosis s/p paracentesis x 4 in one month
# Leukocytosis - trending down
# Stage IV endometrial cancer with progression on Keytruda, has not initiated chemo
# Chronic right hydronephrosis due to carcinomatosis
# GABY on CKD4 improved
- 04/21/24 peritoneal fluid: 4,107 wbc, 64.5% lymphocytes, 36% polys. Cx negative to date.
Malignant peritoneal fluid analysis can appear similar to that of SBP
However, she received abx prior to paracentesis, which may mask culture.
Will treat SBP empirically. Continue ceftriaxone (d3). At time of discharge, transition to Augmentin 875mg po bid through 04/26/24.
-Follow wbc.
Chief Complaint
-: Other (Peritoneal carcinomatosus)
Subjective / Review of Systems
Abdomen sore.
Vital Signs / Physical Exam
Vital Signs
Vital Signs
Temp Pulse Resp BP Pulse Ox
98.1 F 84 16 121/55 99
04/22/24 07:25 04/22/24 07:25 04/22/24 07:25 04/22/24 07:25 04/22/24 07:50
Physical Exam
Constitutional: No Acute Distress and Non-toxic
Cardiovascular: Regular Rate and S1/S2
Gastrointestinal: Soft, Tender (mild diffuse) and Distended (mild)
Lines: Port (RCW intact)
Objective Data
Lab Data
Lab Results
04/22/24 05:54
04/22/24 05:54
Estimated Creat Clear 21 ml/min 05/25/24 05:54
Lactic Acid 1.1 mmol/L (0.7-2.0) 04/20/24 17:38
Total Bilirubin 0.2 mg/dl (0.2-1.3) 04/22/24 05:54
AST 36 U/L (14-36) 04/22/24 05:54
ALT < 10 U/L (0-35) 04/22/24 05:54
Alkaline Phosphatase 258 U/L (38-126) H 04/22/24 05:54
Most recent labs reviewed.
Micro Results:
04/20/24 21:46 Urine Culture - Final
Urine
04/21/24 08:07 Body Fluid Culture - Preliminary
Peritoneal Fluid No Growth After 18-24 Hours
Gram Stain - Preliminary
04/20/24 18:24 Blood Culture - Preliminary
Blood/Venous No Growth in 24 hours- Final report to follow
04/20/24 18:25 Blood Culture - Preliminary
Blood/Venous No Growth in 24 hours- Final report to follow
04/20/24 CT a/p wo : Severely limited examination without IV and oral contrast. There is a slight decrease in overall ascites, patient has had an interval paracentesis. There is persistent peritoneal metastatic disease. There is persistent severe
hydronephrosis of the right kidney. Likely related to the carcinomatosis. Moderate stool in the colon. No bowel obstruction. No free air. Small left pleural effusion and left base atelectasis unchanged.
[2024-04-22] MEDS: DULCOLAX 5 MG PO (17:54)
[2024-04-22] MEDS: ROCEPHIN 2000 MG IV (20:10)
[2024-04-22] MEDS: STERILE WATER FOR INJECTION 20 ML IV (20:11)
[2024-04-22 23:13] LABS: Haptoglobin 423 mg/dL (30-200)
[2024-04-22 23:36] VITALS: BP 124/53
[2024-04-23 06:23] LABS: Hematocrit 25.2 % (37.0-47.0); Hemoglobin 8.2 g/dL (12.0-16.0); Mean Corp Hgb Conc. 32.5 g/dL (33.0-37.0); Mean Corpuscular Volume 92.3 fL (81.0-99.0); Mean Platelet Volume 8.2 fL (7.4-10.4); Platelet Count 697 10^3/uL (130-400); Red Blood Cell Count 2.73 10^6/uL (4.20-5.40); Red Cell Dist. Width 13.4 % (11.5-14.5); White Blood Cell Count 15.1 10^3/uL (4.8-10.8)
[2024-04-23 06:53] LABS: ALT (SGPT) < 10 U/L (0-35); AST (SGOT) 37 U/L (14-36); Albumin 1.7 g/dl (3.5-5.0); Alkaline Phosphatase 240 U/L (38-126); Blood Urea Nitrogen 42 mg/dl (7-17); Calcium 7.7 mg/dl (8.4-10.2); Carbon Dioxide 23 mmol/L (22-30); Chloride 106 mmol/L (98-107); Estimated Creatinine Clearance 26 ml/min; Glucose 103 mg/dl (70-99); Potassium 4.9 mmol/L (3.5-5.1); Sodium 132 mmol/L (135-145); Total Bilirubin 0.1 mg/dl (0.2-1.3)
[2024-04-23 07:59] VITALS: BP 138/56
[2024-04-23] MEDS: HEPARIN 5000 UNITS SC ×2 (08:02→19:45)
[2024-04-23] MEDS: DILAUDID 0.5 MG IV ×2 (09:24→13:19)
[2024-04-23] MEDS: DULCOLAX 5 MG PO (09:25)
--- NOTE | 2024-04-23 10:45 | W.PN.HOSP.TC ---
Addendum entered and electronically signed by Julien Borja MD 04/23/24 15:48:
[id number]
Original Note:
Today's Communication/Plan
-
cefuroxime 500mg daily x 4 more days to complete 7 day course.
f/u pcp, onc outpatient
cbc, cmp in 3-5 days
Assessment / Plan
Assessment / Plan
Physical Exam
General: Well Developed, Well Nourished and No Apparent Distress
HEENT: NormoCephalic, Moist mucous membranes and Atraumatic
Respiratory: Clear
Cardiac: S1/S2 and Regular Rhythm; No Murmur or Rub
GI: Soft, Non Distended, Normal Bowel Sounds, Tender and Distended upon palpation - radiating to right back. No Organomegaly
Rectal: Deferred by Provider
Musculoskeletal: No Clubbing, No Cyanosis and No Edema
Skin: No Rash
Neuro: Nonfocal/grossly intact
PLAN:
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
# ?Spontaneous bacterial peritonitis
� Status post paracentesis 04/21 - fluid count obscure as can misrepresent SBP when Malignant peritoneal fluid is present
� Continue ceftriaxone empirically - transition to cefuroxime 500mg daily x 4 more days to complete 7 day course.
� Follow-up ascitic fluid cultures
� ID consulted
-F/u WBC outpatient
�Oncology outpt f/u
-Oncology recommended against peritoneal drainage catheter during last admission due to risk of infection
# History of metastatic endometrial carcinoma status post prior hysterectomy
-Status post pembrolizumab for a year progression of disease, more recently treated with hormonal therapy which was ineffective
-Patient due to start chemotherapy soon with Taxol/carboplatin with [facility]
-Continue oxycodone
� Oncology on board
#Constipation exacerbated by oxycodone
-Continue senna, MiraLAX
-Try mag citrate, enema if no bowel movement tomorrow
-enema today
# CKD 4
#Severe Right Hydronephrosis
-Creatinine of 2.3 from 1.8 on discharge
-Gentle IV fluids
-after discussion with urology and risk of infection, favoring holding off nephrostomy tube - especially with renal function stability
-hold losartan until seen by pcp
# Worsening of chronic hyponatremia secondary to decreased solute intake/SIADH of malignancy
-IV fluids given in ER
-Sodium 126 from 133
-Fluid restriction 40 ounces
�Continue to monitor
-f/u bmp in 3-5 days with pcp
#Chronic thrombocytosis
� Most likely secondary to malignancy +acute infection
-cbc outpt
#Essential hypertension
-hold losartan until seen by pcp and monitoring Scr
Hyperlipidemia
-Continue statin
#Anemia of chronic disease
Normocytic anemia
-Hemoglobin stable
DNR/DNI
DVT prophylaxis�heparin
Regular diet
More than 30 minutes spent in discharge including
Final examination of the patient
Summarizing hospital stay
Instructions for continuing care to all relevant caregivers
Preparation of discharge records, prescriptions, and referral forms
Total time spent (35 in minutes):
Anticipated Discharge: Today
Subjective/Interval History
-
Date of Service: April 23, 2024
nonspecific pain; cultures negative
Objective Data
-
Labs:
Laboratory Results
04/23/24
05:57
WBC 15.1 H
Hgb 8.2 L
Hct 25.2 L
Plt Count 697 H
Sodium 132 L
Potassium 4.9
Chloride 106
Carbon Dioxide 23
BUN 42 H
Creatinine 1.4 H
Glucose 103 H
Calcium 7.7 L
Total Bilirubin 0.1 L
AST 37 H
ALT < 10
Alkaline Phosphatase 240 H
Vital Signs:
Vital Signs
Temp Pulse Resp BP Pulse Ox
98.6 F 85 18 138/56 97
04/23/24 07:59 04/23/24 07:59 04/23/24 07:59 04/23/24 07:59 04/23/24 08:00
I&O
04/22/24 04/23/24 04/24/24
06:59 06:59 06:59
Intake Total 0 / 1670 1999
Balance 1670 / 1670 1999
Review of Systems
-
History Source: Patient
All other systems: Not reviewed unless documented
Physical Exam
-
General: Comfortable and Cachectic
HEENT: Negative Oxygen
Respiratory: Clear to Auscultation
Cardiac: Regular Rhythm and S1/S2; Negative Murmur or Rub
GI: Soft, Nontender and Distended
Musculoskeletal: No Edema
Neuro: Awake, Alert, Oriented, No Motor Deficits and Nonfocal/Grossly Intact
Psych: Calm
Data Reviewed
-
CT Scan: Image personally visualized and interpreted and Report Reviewed by me
Labs: Labs Reviewed by me
--- NOTE | 2024-04-23 11:00 | W.PN.ID1 ---
Date of Service
Date of Service: April 23, 2024
Today's Communication
Can transition to Augmentin 500mg po bid (or cefuroxime 500mg qd) through 04/26/24.
Assessment / Plan
# Recurrent ascites due to peritoneal carcinomatosis s/p paracentesis x 4 in one month
# Leukocytosis - trending down
# Stage IV endometrial cancer with progression on Keytruda, has not initiated chemo
# Chronic right hydronephrosis due to carcinomatosis
# GABY on CKD4 improved
- 04/21/24 peritoneal fluid: 4,107 wbc, 64.5% lymphocytes, 36% polys. Cx negative to date.
Malignant peritoneal fluid analysis can appear similar to that of SBP
However, she received abx prior to paracentesis, which may mask culture.
treat SBP empirically.
On ceftriaxone (d4).
Can transition to Augmentin 500mg po bid (or cefuroxime 500mg qd) through 04/26/24.
Chief Complaint
-: Other (Peritoneal carcinomatosus)
Subjective / Review of Systems
Abdomen soreness stable
Vital Signs / Physical Exam
Vital Signs
Vital Signs
Temp Pulse Resp BP Pulse Ox
98.6 F 85 18 138/56 97
04/23/24 07:59 04/23/24 07:59 04/23/24 07:59 04/23/24 07:59 04/23/24 08:00
Physical Exam
Constitutional: No Acute Distress
Gastrointestinal: Soft, Tender (mild) and Distended (mild)
Objective Data
Lab Data
Lab Results
04/23/24 05:57
04/23/24 05:57
Estimated Creat Clear 26 ml/min 04/23/24 05:57
Lactic Acid 1.1 mmol/L (0.7-2.0) 04/20/24 17:38
Total Bilirubin 0.1 mg/dl (0.2-1.3) L 04/23/24 05:57
AST 37 U/L (14-36) H 04/23/24 05:57
ALT < 10 U/L (0-35) 04/23/24 05:57
Alkaline Phosphatase 240 U/L (38-126) H 04/23/24 05:57
Most recent labs reviewed.
Micro Results:
04/21/24 08:07 Body Fluid Culture - Preliminary
Peritoneal Fluid No Growth After 48 Hours
Gram Stain - Preliminary
04/20/24 18:24 Blood Culture - Preliminary
Blood/Venous No Growth in 48 hours- Final report to follow
04/20/24 18:25 Blood Culture - Preliminary
Blood/Venous No Growth in 48 hours- Final report to follow
04/20/24 21:46 Urine Culture - Final
Urine
04/20/24 CT a/p wo : Severely limited examination without IV and oral contrast. There is a slight decrease in overall ascites, patient has had an interval paracentesis. There is persistent peritoneal metastatic disease. There is persistent severe
hydronephrosis of the right kidney. Likely related to the carcinomatosis. Moderate stool in the colon. No bowel obstruction. No free air. Small left pleural effusion and left base atelectasis unchanged.
Care Review
Plan reviewed with: Physician (Dr. Borja)
--- NOTE | 2024-04-23 11:18 | W.DS.TRANS ---
DC Summary - [employer]
-
Discharge Instructions:
Discharge Diagnosis/Procedures Abdominal pain
?SBP
Diet 2 Gram Sodium,Restrict fluids to 48 oz,Low
Cholesterol,Low Fat
Activity As tolerated
Blood Work cbc and cmp in 3-5 days with pcp/oncologist
Instructions:
Stand-Alone Forms:
Changes to Home Medications: Yes
Discharge Medications:
DC Medications w/original date entered in [employer]
acetaminophen 500 mg tablet (Tylenol Extra Strength) 1,000 mg PO QID Pain 04/09/24
carboxymethylcellulose sodium 1 % eye liquid gel drops 0 drp BOTH EYES DAILYPRN PRN dry eyes 04/09/24
ondansetron HCl 8 mg tablet 8 mg PO QIDPRN PRN nausea/vomiting 04/09/24
peg 400-propylene glycol (PF) 0.4 %-0.3 % eye drops in a dropperette (Systane (PF)) 1 drp BOTH EYES DAILYPRN PRN dry eyes 04/09/24
rosuvastatin 5 mg tablet 5 mg PO QPM High Cholesterol 04/09/24
polyethylene glycol 3350 17 gram oral powder packet (HealthyLax) 17 g PO DAILYPRN PRN constipation #30 ea 04/14/24
bisacodyl 5 mg tablet,delayed release (Dulcolax (bisacodyl)) 15 mg PO HSPRN PRN constipation 04/20/24
lidocaine-prilocaine 2.5 %-2.5 % topical cream 1 applic topical DIRECTED port access 04/20/24
losartan 50 mg tablet 50 mg PO DAILY Blood Pressure 04/20/24
cefuroxime axetil 500 mg tablet 500 mg PO DAILY 4 days #4 tabs 04/23/24
oxycodone 5 mg tablet 5 mg PO Q4HPRN PRN mod sev pain #14 tabs 04/23/24
Home Medication Changes
cefuroxime axetil 500 mg tablet 500 mg PO DAILY 4 days #4 tabs 04/23/24
oxycodone 5 mg tablet 5 mg PO Q4HPRN PRN mod sev pain #14 tabs 04/23/24
hold losartan
Pending Results: No
--- NOTE | 2024-04-23 11:42 | CM ---
Chart reviewed and patient is cleared for discharge today, home with spouse.
Plan; Home with spouse today, no needs.
--- NOTE | 2024-04-23 14:30 | PTCARENOTE ---
04/23- Administered Tap Water Enema 1hour ago as ordered. Educated patient on release of enema water, movement to stimulate peristalsis and abdominal massage. She verbalized understanding. AAOX3; patient reports abdominal pain is 7/10; Abdomen is
soft/tender/significantly distended. +Hypoactive BS. Patient has currently released only the enema water, brown-tinged with scattered fecal crumbs but no chunks or BM as of yet. Notified Physician.
[2024-04-23 15:39] VITALS: BP 132/61
[2024-04-23] MEDS: MIRALAX 17 GRAMS PO (16:28)
[2024-04-23] MEDS: ROCEPHIN 2000 MG IV (19:45)
[2024-04-23] MEDS: STERILE WATER FOR INJECTION 20 ML IV (19:46)
[2024-04-23] MEDS: ZOFRAN 4 MG IV (22:02)
[2024-04-23] MEDS: LIDOCAINE 4% PATCH 1 PATCH TOPICAL (22:26)
[2024-04-23 23:18] VITALS: BP 138/51
[2024-04-24] MEDS: DILAUDID 0.5 MG IV (03:04)
[2024-04-24 05:02] LABS: Hematocrit 25.3 % (37.0-47.0); Hemoglobin 8.4 g/dL (12.0-16.0); Mean Corp Hgb Conc. 33.2 g/dL (33.0-37.0); Mean Corpuscular Hgb 29.7 pg (27.0-31.0); Mean Corpuscular Volume 89.4 fL (81.0-99.0); Mean Platelet Volume 8.3 fL (7.4-10.4); Platelet Count 773 10^3/uL (130-400); Red Blood Cell Count 2.83 10^6/uL (4.20-5.40); Red Cell Dist. Width 13.4 % (11.5-14.5); White Blood Cell Count 16.7 10^3/uL (4.8-10.8)
[2024-04-24 05:46] LABS: ALT (SGPT) < 10 U/L (0-35); AST (SGOT) 42 U/L (14-36); Albumin 1.8 g/dl (3.5-5.0); Alkaline Phosphatase 251 U/L (38-126); Blood Urea Nitrogen 42 mg/dl (7-17); Calcium 8.1 mg/dl (8.4-10.2); Carbon Dioxide 21 mmol/L (22-30); Chloride 105 mmol/L (98-107); Estimated Creatinine Clearance 26 ml/min; Glucose 117 mg/dl (70-99); Potassium 4.9 mmol/L (3.5-5.1); Sodium 130 mmol/L (135-145); Total Bilirubin 0.2 mg/dl (0.2-1.3); Total Protein 4.2 g/dl (6.3-8.2)
[2024-04-24 07:00] VITALS: BP 136/60
[2024-04-24] MEDS: MIRALAX PO (07:50)
[2024-04-24] MEDS: HEPARIN 5000 UNITS SC ×2 (07:51→19:35)
[2024-04-24] MEDS: DUPHALAC/CHRONULAC 20 GRAMS PO (09:24)
[2024-04-24] MEDS: ROXICODONE 5 MG PO ×2 (10:47→11:55)
[2024-04-24] MEDS: LIDOCAINE 4% PATCH 1 PATCH TOPICAL ×2 (11:13→19:35)
--- NOTE | 2024-04-24 12:16 | W.PN.ID1 ---
Date of Service
Date of Service: April 24, 2024
Today's Communication
Transition ceftriaxone (d4) to cefuroxime 250mg bid through 04/26/24.
Assessment / Plan
# Recurrent ascites due to peritoneal carcinomatosis s/p multiple paracentesis
# Leukocytosis
# Stage IV endometrial cancer with progression on Keytruda, has not initiated chemo
# Chronic right hydronephrosis due to carcinomatosis
# Chronic pain
# GABY on CKD4 improved
- 04/21/24 peritoneal fluid: 4,107 wbc, 64.5% lymphocytes, 36% polys. Cx negative
Malignant peritoneal fluid analysis can appear similar to that of SBP
However, she received abx prior to paracentesis, which may mask culture.
treat SBP empirically.
Transition ceftriaxone (d4) to cefuroxime 250mg bid through 04/26/24.
Chief Complaint
-: Other (Peritoneal carcinomatosus)
Subjective / Review of Systems
c/o worsening abd pain, slightly larger.
Vital Signs / Physical Exam
Vital Signs
Vital Signs
Temp Pulse Resp BP Pulse Ox
98.2 F 87 18 136/60 95
04/24/24 07:00 04/24/24 07:00 04/24/24 07:00 04/24/24 07:00 04/24/24 07:00
Physical Exam
Constitutional: Other (uncomfortable from pain)
Eyes: Sclera Anicteric
Cardiovascular: Regular Rate and S1/S2
Gastrointestinal: Tender (diffuse) and Distended (small to moderate)
Extremities: Negative Edema
Objective Data
Lab Data
Lab Results
04/24/24 04:28
04/24/24 04:28
Estimated Creat Clear 26 ml/min 04/24/24 04:28
Lactic Acid 1.1 mmol/L (0.7-2.0) 04/20/24 17:38
Total Bilirubin 0.2 mg/dl (0.2-1.3) 04/24/24 04:28
AST 42 U/L (14-36) H 04/24/24 04:28
ALT < 10 U/L (0-35) 04/24/24 04:28
Alkaline Phosphatase 251 U/L (38-126) H 04/24/24 04:28
Most recent labs reviewed.
Micro Results:
04/21/24 08:07 Body Fluid Culture - Final
Peritoneal Fluid No Growth After 72 Hours
Gram Stain - Final
04/20/24 18:25 Blood Culture - Preliminary
Blood/Venous No Growth in 72 hours- Final report to follow
04/20/24 18:24 Blood Culture - Preliminary
Blood/Venous No Growth in 72 hours- Final report to follow
04/20/24 21:46 Urine Culture - Final
Urine
04/20/24 CT a/p wo : Severely limited examination without IV and oral contrast. There is a slight decrease in overall ascites, patient has had an interval paracentesis. There is persistent peritoneal metastatic disease. There is persistent severe
hydronephrosis of the right kidney. Likely related to the carcinomatosis. Moderate stool in the colon. No bowel obstruction. No free air. Small left pleural effusion and left base atelectasis unchanged.
Care Review
Plan reviewed with: Physician (Dr. Borja)
[2024-04-24] MEDS: CEFTIN 250 MG PO ×2 (13:48→19:35)
[2024-04-24] MEDS: DILAUDID 0.25 MG IV (13:48)
--- NOTE | 2024-04-24 13:48 | W.PN.HOSP.TC ---
Today's Communication/Plan
-
pain control
lactulose
paracentesis tomorrow
abx
Assessment / Plan
Assessment / Plan
Physical Exam
General: Well Developed, Well Nourished and No Apparent Distress
HEENT: NormoCephalic, Moist mucous membranes and Atraumatic
Respiratory: Clear
Cardiac: S1/S2 and Regular Rhythm; No Murmur or Rub
GI: Soft, Non Distended, Normal Bowel Sounds, Tender and Distended upon palpation - radiating to right back. No Organomegaly
Rectal: Deferred by Provider
Musculoskeletal: No Clubbing, No Cyanosis and No Edema
Skin: No Rash
Neuro: Nonfocal/grossly intact
PLAN:
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
# ?Spontaneous bacterial peritonitis
#Abdominal Pain
� Status post paracentesis 04/21 - fluid count obscure as can misrepresent SBP when Malignant peritoneal fluid is present; can repeat paracentesis tomorrow 04/25
� Continue ceftriaxone empirically - can transition to cefuroxime to complete 7 day course
� Follow-up ascitic fluid cultures: ngtd
� ID consulted
-Pain Control
�Oncology outpt f/u
-Oncology recommended against peritoneal drainage catheter during last admission due to risk of infection
# History of metastatic endometrial carcinoma status post prior hysterectomy
-Status post pembrolizumab for a year progression of disease, more recently treated with hormonal therapy which was ineffective
-Patient due to start chemotherapy soon with Taxol/carboplatin with [facility]
-Continue dilaudid - oxycodone not helping at this point
� Oncology on board
#Constipation exacerbated by oxycodone
-Continue senna, MiraLAX
-Try mag citrate, enemas
-Lactulose today +/- enema
# CKD 4
#Severe Right Hydronephrosis
-Creatinine of 2.3 from 1.8 on discharge
-Gentle IV fluids
-after discussion with urology and risk of infection, favoring holding off nephrostomy tube - especially with renal function stability
-hold losartan until seen by pcp
# Worsening of chronic hyponatremia secondary to decreased solute intake/SIADH of malignancy
-IV fluids given in ER
-Sodium 126 from 133
-Fluid restriction 40 ounces
�Continue to monitor
-f/u bmp in 3-5 days with pcp
#Chronic thrombocytosis
� Most likely secondary to malignancy +acute infection
-cbc outpt
#Essential hypertension
-hold losartan until seen by pcp and monitoring Scr
Hyperlipidemia
-Continue statin
#Anemia of chronic disease
Normocytic anemia
-Hemoglobin stable
DNR/DNI
DVT prophylaxis�heparin
Regular diet
More than 30 minutes spent in discharge including
Final examination of the patient
Summarizing hospital stay
Instructions for continuing care to all relevant caregivers
Preparation of discharge records, prescriptions, and referral forms
Total time spent (35 in minutes):
Anticipated Discharge: Within 24 hours
Subjective/Interval History
-
Date of Service: April 24, 2024
Patient having worse abdominal pain, still no bowel movement despite enema
Objective Data
-
Labs:
Laboratory Results
04/24/24
04:28
WBC 16.7 H
Hgb 8.4 L
Hct 25.3 L
Plt Count 773 H
Sodium 130 L
Potassium 4.9
Chloride 105
Carbon Dioxide 21 L
BUN 42 H
Creatinine 1.4 H
Glucose 117 H
Calcium 8.1 L
Total Bilirubin 0.2
AST 42 H
ALT < 10
Alkaline Phosphatase 251 H
Vital Signs:
Vital Signs
Temp Pulse Resp BP Pulse Ox
98.2 F 87 18 136/60 95
04/24/24 07:00 04/24/24 07:00 04/24/24 07:00 04/24/24 07:00 04/24/24 07:00
I&O
04/23/24 04/24/24 04/25/24
06:59 06:59 06:59
Intake Total 1999
Balance 1999
Review of Systems
-
History Source: Patient
All other systems: Not reviewed unless documented
Physical Exam
-
General: Comfortable and Cachectic
HEENT: Negative Oxygen
Respiratory: Clear to Auscultation
Cardiac: Regular Rhythm and S1/S2; Negative Murmur or Rub
GI: Soft, Nontender and Distended
Musculoskeletal: No Edema
Neuro: Awake, Alert, Oriented, No Motor Deficits and Nonfocal/Grossly Intact
Psych: Calm
Data Reviewed
-
CT Scan: Image personally visualized and interpreted and Report Reviewed by me
Labs: Labs Reviewed by me
[2024-04-24 15:00] VITALS: BP 143/69
--- NOTE | 2024-04-24 15:13 | W.PN.ONC ---
Today's Communication / Plan
-
improved
paracentesis tomorrow
constipation - bowel regimen
has f/u later this week - 04/28 for tx - carbo/taxol - Dr. Garcia
Impression
Impression
Metastatic endometrial cancer
Recurrent peritoneal carcinomatosis
Malignant ascites s/p paracentesis x3
Abdominal distention
Diffuse abdominal pain/tenderness
Acute kidney injury
Severe hydronephrosis right kidney
Recent urinary tract infection
Hyponatremia
Leukocytosis
Acute on chronic anemia
Reactive thrombocytosis
Plan
Plan
1. stage IV metastatic endometrial cancer - recurrent ascites
-for additiona paracentesis tomorrow
-remains on abx
-has not initiated chemotherapy w/ [place] - Dr. Garcia
-acute on chronic renal insufficiency - w/ right sided hydro - creatinine stable 1.4
-follow clinically/ supportive care
Has f/u later this week - Saturday 04/28 - for tx - carbo/taxol - at [facility] office
Subjective/Objective
Subjective/Objective
abdominal fullness - constipation
Vital Signs:
Vital Signs
Temp Pulse Resp BP Pulse Ox
98.2 F 87 18 136/60 95
04/24/24 07:00 04/24/24 07:00 04/24/24 07:00 04/24/24 07:00 04/24/24 07:00
Lab Results:
Laboratory Data
WBC 16.7 10^3/uL (4.8-10.8) H 04/24/24 04:28
Hgb 8.4 g/dL (12.0-16.0) L 04/24/24 04:28
Plt Count 773 10^3/uL (130-400) H 04/24/24 04:28
eGFR 37.10 04/24/24 04:28
[2024-04-24] MEDS: ZOFRAN 4 MG IV ×2 (16:11→22:22)
--- NOTE | 2024-04-24 21:02 | PTCARENOTE ---
RN took care of patient from 7p-9p. Assessment did not change from previous shift. Patient resting in bed with call pinto in hand. Report handed off to next nurse.
[2024-04-24 23:11] VITALS: BP 123/65
[2024-04-25] VITALS (7 sets, daily range): BP systolic 91–162; BP diastolic 51–65; PULSE 100; O2SAT 95
[2024-04-25 06:37] LABS: Hemoglobin 9.4 g/dL (12.0-16.0); Mean Corp Hgb Conc. 33.6 g/dL (33.0-37.0); Mean Corpuscular Hgb 30.6 pg (27.0-31.0); Mean Corpuscular Volume 91.2 fL (81.0-99.0); Mean Platelet Volume 8.1 fL (7.4-10.4); Platelet Count 792 10^3/uL (130-400); Red Blood Cell Count 3.07 10^6/uL (4.20-5.40); Red Cell Dist. Width 13.5 % (11.5-14.5); White Blood Cell Count 20.5 10^3/uL (4.8-10.8)
[2024-04-25 07:04] LABS: ALT (SGPT) 11 U/L (0-35); AST (SGOT) 44 U/L (14-36); Alkaline Phosphatase 235 U/L (38-126); Blood Urea Nitrogen 46 mg/dl (7-17); Calcium 8.6 mg/dl (8.4-10.2); Carbon Dioxide 22 mmol/L (22-30); Chloride 103 mmol/L (98-107); Estimated Creatinine Clearance 26 ml/min; Glucose 112 mg/dl (70-99); Potassium 5.6 mmol/L (3.5-5.1); Sodium 131 mmol/L (135-145); Total Bilirubin 0.2 mg/dl (0.2-1.3); Total Protein 4.6 g/dl (6.3-8.2)
[2024-04-25] MEDS: DUPHALAC/CHRONULAC 20 GRAMS PO (07:26)
[2024-04-25] MEDS: CEFTIN 250 MG PO ×2 (07:26→20:48)
[2024-04-25] MEDS: HEPARIN 5000 UNITS SC ×2 (07:27→20:48)
[2024-04-25] MEDS: MIRALAX PO (07:29)
[2024-04-25] MEDS: LIDOCAINE 4% PATCH 1 PATCH TOPICAL (07:30)
[2024-04-25] MEDS: ZOFRAN 4 MG IV ×2 (09:33→16:38)
[2024-04-25] MEDS: DILAUDID 0.25 MG IV ×3 (09:38→22:21)
--- NOTE | 2024-04-25 10:44 | CM ---
CM following re: discharge planning.
Reviewed pt's chart, met with pt and pt's Andrez at bedside.
Per chart review, pt potential for discharge within 24 hours. IMM reviewed placed on chart, pt has a copy. Pt's expressed unhappy feelings regarding discharge and was on the phone with medical review coordinator.
Both pt and her are aware that PT/OT have been recommended home care services and they expressed their agreement. A list of VN vendors provided to the pt, [facility] preferred.
A referral to [facility] made.
Please fax discharge instructions to [facility] at [phone]
D/C plan: home when medically stable with [facility], follow up with outpatient oncologist and family support.
CM will follow with discharge plan updates as hospitalization progresses
--- NOTE | 2024-04-25 11:37 | W.PN.HOSP.TC ---
Addendum entered and electronically signed by Kenji Lucero MD 04/25/24 15:37:
Moderate protein calorie malnutrition
Original Note:
Today's Communication/Plan
-
see bold
Assessment / Plan
Assessment / Plan
Gen: NAD, AAOx3, appears chronically ill and malnourished.
Eyes: EOMI, PERRLA, no scleral icterus.
Neck: supple.
CV: RRR, +S1/S2, no m/r/g.
Resp: CTAB, no rales, wheezes, or rhonchi.
Abd: +BS, soft, mild distention with ascites, mild tenderness to palpation
Skin: No rashes.
Neuro: CN 2-12 intact, non-focal.
Psych: Normal mood and affect.
04/20/24 18:25 Blood/Venous Blood Culture - Preliminary
No Growth in 4 days- Final report to follow
04/20/24 18:24 Blood/Venous Blood Culture - Preliminary
No Growth in 4 days- Final report to follow
04/21/24 08:07 Peritoneal Fluid Body Fluid Culture - Final
No Growth After 72 Hours
04/21/24 08:07 Peritoneal Fluid Gram Stain - Final
04/20/24 21:46 Urine Urine Culture - Final
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
-with possible SBP
-s/p paracentesis 04/21/24 (fluid count can misrepresent SBP when malignant peritoneal fluid is present)
-repeat paracentesis today 04/25
-was on Rocephin, now transitioned to Ceftin to complete 7 days as per ID
-peritoneal fluid Cx NGTD
-Oncology recommended against peritoneal drainage catheter during last admission due to risk of infection
-pain control with oxycodone/IV dilaudid
Metastatic endometrial carcinoma s/p prior hysterectomy:
-s/p pembrolizumab for a year with progression of disease, more recently treated with hormonal therapy which was ineffective
-Patient due to start chemotherapy 04/28/24 with Taxol/carboplatin with [facility]
-oncology following
Constipation exacerbated by opioids
-Continue lactulose
-MiraLAX ordered by not given
GABY on CKD4:
-with severe Right Hydronephrosis
-Cr 2.3 on admission, now 1.4 after IVFs
-after discussion with urology and risk of infection, favoring holding off nephrostomy tube especially with renal function stability
-holding losartan until seen by PCP
Acute on chronic hyponatremia due to decreased solute intake/SIADH of malignancy:
-IV fluids given in ER
-Sodium 126 on admission, now 131
-cont FR 1200cc/day
Chronic thrombocytosis
Essential hypertension: holding losartan until seen by PCP with GABY
Hyperlipidemia: resume statin on d/c
Anemia of chronic disease: Hb stable
Hyperkalemia: Start Lokelma
DNR/DNI/heparin
Total time spent on today's encounter was 50 minutes which included time spent in counseling the patient/family regarding diagnosis and treatment plan as listed above, goals of care, and symptom management. Case was discussed with nursing staff,
specialists, and care coordinators/case management. All labs and imaging personally reviewed by me. Remainder the time spent in detailed review of previous records, lab data, imaging, and other medical provider documentation.
Anticipated Discharge: 24 - 48 hours
Subjective/Interval History
-
Date of Service: April 25, 2024
Denies pain.
Objective Data
-
Labs:
Laboratory Results
04/25/24
06:28
WBC 20.5 H
Hgb 9.4 L
Hct 28.0 L
Plt Count 792 H
Sodium 131 L
Potassium 5.6 H
Chloride 103
Carbon Dioxide 22
BUN 46 H
Creatinine 1.4 H
Glucose 112 H
Calcium 8.6
Total Bilirubin 0.2
AST 44 H
ALT 11
Alkaline Phosphatase 235 H
Vital Signs:
Vital Signs
Temp Pulse Resp BP Pulse Ox
98.2 F 93 16 162/60 98
04/25/24 07:00 04/25/24 07:00 04/25/24 07:00 04/25/24 07:00 04/25/24 07:30
I&O
04/24/24 04/25/24 04/26/24
06:59 06:59 06:59
Intake Total 1919 1320 / 1320
Balance 1919 1320 / 1320
--- NOTE | 2024-04-25 11:57 | VNURNOTE ---
Home Health Liaison met with patient and spouse Jason at 1130 to discuss [facility] nurse/therapy, visits, schedule and homebound status. Patient is agreeable and understands that visits at home will be 2-3 x per week to assess and teach medical
management.
[facility] brochure provided with contact information. Patient is aware that [facility] will contact them for start of care in 1-2 days after discharge from .
[facility] referral completed in 'saved' mode in [facility] Port and will be sent closer to discharge.
--- NOTE | 2024-04-25 12:15 | W.PN.ONC ---
Today's Communication / Plan
-
Due to her abdominal symptoms, I have requested an additional paracentesis. Unclear to me how much of her discomfort is due to fluid as opposed to just carcinomatosis.
Impression
Impression
Metastatic endometrial cancer
Recurrent peritoneal carcinomatosis
Malignant ascites s/p paracentesis x3
Abdominal distention
Diffuse abdominal pain/tenderness
Acute kidney injury
Severe hydronephrosis right kidney
Recent urinary tract infection
Hyponatremia
Leukocytosis
Acute on chronic anemia
Reactive thrombocytosis
Plan
Plan
1. stage IV metastatic endometrial cancer - recurrent ascites
-for additiona paracentesis tomorrow
-remains on abx
-has not initiated chemotherapy w/ [facility] - Dr. Garcia
-acute on chronic renal insufficiency - w/ right sided hydro - creatinine stable 1.4
-follow clinically/ supportive care
Has f/u later this week - Saturday 04/28 - for tx - carbo/taxol - at [facility] [place] office
Subjective/Objective
Subjective/Objective
She is complaining of abdominal pain. She has no nausea or vomiting. Physical exam and does show a distended abdomen, most likely with some ascites.
Vital Signs:
Vital Signs
Temp Pulse Resp BP Pulse Ox
98.2 F 93 16 162/60 98
04/25/24 07:00 04/25/24 07:00 04/25/24 07:00 04/25/24 07:00 04/25/24 07:30
Lab Results:
Laboratory Data
WBC 20.5 10^3/uL (4.8-10.8) H 04/25/24 06:28
Hgb 9.4 g/dL (12.0-16.0) L 04/25/24 06:28
Plt Count 792 10^3/uL (130-400) H 04/25/24 06:28
eGFR 37.10 04/25/24 06:28
Orders
Orders
Orders From Last 24 Hours
04/25/24 12:11
Consult Interventional Radiology [IRAD CONSULT] Routine
[2024-04-25] MEDS: LOKELMA 10 GRAM PO ×2 (13:09→16:37)
--- NOTE | 2024-04-25 14:19 | PN.CDI ---
CDI
- -
CDI:
Physician Documentation Request
Admit Date: 04/20/24 20:40
Dear Doctor Nic,
Please review the following and provide your response in the progress notes.
Clinical Indicators:
Pt admitted with Endometrial cancer with peritoneal mets /SBP /Malignant ascites
Documented per 04/25 progress note,' appears chronically ill and malnourished....'
Nutrition note 04/21, ' 126 lbs. 12.8 oz., BMI: 21.8 (5-23) wt on previous recent admission 5-12 136 lbs. this reflects a 7% wt loss in less then a month....During visit RD able to observe some depression at temples (mild) and moderate orbital.
With decreased intakes (<75% estimated energy requirement for > 1 month and observations, pt meeting criteria for moderate protein/calorie malnutrition (ASPEN/AND guidelines, chronic illness).....'
If possible, please provide in your progress notes, additional specificity regarding the severity of the malnutrition:
Moderate
Mild
Other (please specify)
[place] Criteria (ACP Hospitalist 2017)
2 or more criteria must be present for either
non severe or severe malnutrition
Note that the criteria differs related to the
presence of an acute or chronic illness
Acute Illness Chronic Illness
Energy Intake Non Severe: <75% for >7 days Non Severe: <75% for >1 month
Severe: <50% for >5 days Severe: <75% for >1 month
Weight Loss Non Severe: 1-2% over 1 week Non Severe: 5% over 1 month
5% over 1 month 7.5% over 3 months
7.5% over 3 months 10% over 6 months
1 year N/A 20% over 1 year
Severe: >2% over 1 week Severe: >5% over 1 month
>5% over 1 month >7.5% over 3 months
>7.5% over 3 months >10% over 6 months
1 year N/A >20% over 1 year
Body Fat Non Severe: Mild Decrease Non Severe: Mild Loss
Severe: Moderate Decrease Severe: Severe Loss
Muscle Mass Non Severe: Mild Decrease Non Severe: Mild Loss
Severe: Moderate Decrease Severe: Severe Loss
Fluid Accumulation Non Severe: Mild Accumulation Non Severe: Mild Accumulation
Severe: Moderate to severe Severe: Moderate to severe
accumulation accumulation
Reduced Legal Advisor Strength Non Severe: N/A Non Severe: N/A
Severe: Measurably reduced Severe: Measurably reduced
Use of terms such as suspected, likely, concern for, or probable (associated with a specific diagnosis that is being evaluated, monitored, or treated as if it exists) are acceptable and can be coded in the inpatient setting, when documented at the
time of discharge.
Thank you,
Rosanna Gross RN
CDI Specialist
[facility]
Please use your independent medical judgment in providing your response.
[2024-04-25 14:58] LABS: Body Fluid Albumin 1.3 g/dl; Body Fluid Amylase 35 U/L
[2024-04-25 15:02] LABS: Body Fluid Protein 3.1 g/dl
[2024-04-25 15:03] LABS: Body Fluid Mononuclear 77.1 %; Body Fluid Polymorphonuclear 22.9 %; Body Fluid WBC 1749 /CUMM
[2024-04-25 15:28] LABS: Body Fluid Second Tech FB
[2024-04-25 15:59] LABS: Body Fluid LDH 1331 U/L
[2024-04-25] MEDS: LIDOCAINE 4% PATCH TOPICAL ×2 (20:49→20:55)
[2024-04-26] MEDS: LOKELMA 10 GRAM PO ×2 (05:26→14:42)
[2024-04-26 07:05] LABS: Hematocrit 28.4 % (37.0-47.0); Hemoglobin 9.4 g/dL (12.0-16.0); Mean Corp Hgb Conc. 33.1 g/dL (33.0-37.0); Mean Corpuscular Hgb 29.7 pg (27.0-31.0); Mean Corpuscular Volume 89.6 fL (81.0-99.0); Mean Platelet Volume 8.2 fL (7.4-10.4); Platelet Count 771 10^3/uL (130-400); Red Blood Cell Count 3.17 10^6/uL (4.20-5.40); Red Cell Dist. Width 13.5 % (11.5-14.5); White Blood Cell Count 20.6 10^3/uL (4.8-10.8)
[2024-04-26] MEDS: DUPHALAC/CHRONULAC 20 GRAMS PO (07:43)
[2024-04-26] MEDS: MIRALAX 17 GRAMS PO (07:43)
[2024-04-26] MEDS: CEFTIN 250 MG PO ×2 (07:43→21:49)
[2024-04-26] MEDS: HEPARIN 5000 UNITS SC ×2 (07:44→21:48)
[2024-04-26] MEDS: LIDOCAINE 4% PATCH 1 PATCH TOPICAL ×2 (07:44→21:49)
[2024-04-26 07:57] LABS: ALT (SGPT) 12 U/L (0-35); AST (SGOT) 44 U/L (14-36); Albumin 1.9 g/dl (3.5-5.0); Alkaline Phosphatase 188 U/L (38-126); Blood Urea Nitrogen 53 mg/dl (7-17); Calcium 8.6 mg/dl (8.4-10.2); Carbon Dioxide 18 mmol/L (22-30); Chloride 103 mmol/L (98-107); Estimated Creatinine Clearance 21 ml/min; Glucose 103 mg/dl (70-99); Potassium 5.8 mmol/L (3.5-5.1); Sodium 129 mmol/L (135-145); Total Bilirubin 0.3 mg/dl (0.2-1.3); Total Protein 4.3 g/dl (6.3-8.2); eGFR 29.39
[2024-04-26 08:15] VITALS: BP 144/60
[2024-04-26] MEDS: DILAUDID 0.25 MG IV ×3 (10:42→21:50)
--- NOTE | 2024-04-26 12:16 | W.PN.HOSP.TC ---
Today's Communication/Plan
-
see bold
Assessment / Plan
Assessment / Plan
Gen: NAD, AAOx3, appears chronically ill and malnourished.
Eyes: EOMI, PERRLA, no scleral icterus.
Neck: supple.
CV: remains RRR, +S1/S2, no m/r/g.
Resp: remains CTAB, no rales, wheezes, or rhonchi.
Abd: remains +BS, soft, mild distention with ascites, mild tenderness to palpation
Skin: No rashes.
Neuro: CN 2-12 intact, non-focal.
Psych: Normal mood and affect.
04/20/24 18:24 Blood/Venous Blood Culture - Final
No Growth - Final Report
04/20/24 18:25 Blood/Venous Blood Culture - Final
No Growth - Final Report
04/25/24 13:40 Peritoneal Fluid Gram Stain - Preliminary
04/21/24 08:07 Peritoneal Fluid Body Fluid Culture - Final
No Growth After 72 Hours
04/21/24 08:07 Peritoneal Fluid Gram Stain - Final
04/20/24 21:46 Urine Urine Culture - Final
GABY on CKD4:
-with severe Right Hydronephrosis
-Cr 2.3 on admission, then 1.4 after IVFs. Now 1.7, resume IVFs, c/s renal
-after discussion with urology and risk of infection, favoring holding off nephrostomy tube especially with renal function stability
-holding losartan until seen by PCP
Acute on chronic hyponatremia due to decreased solute intake/SIADH of malignancy:
-Sodium 126 on admission, now 129
-IV fluids given in ER, now going back on IVFs as above for GABY/hyperkalemia
-cont FR 1200cc/day
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
-with possible SBP
-s/p paracentesis on 04/21/24 (fluid count can misrepresent SBP when malignant peritoneal fluid is present)
-s/p paracentesis on 04/25/24 for 1950cc (fluid count can misrepresent SBP when malignant peritoneal fluid is present)
-was on Rocephin, now transitioned to Ceftin to complete 7 days as per ID
-peritoneal fluid Cx NGTD
-Oncology recommended against peritoneal drainage catheter during last admission due to risk of infection
-pain control with oxycodone/IV dilaudid
Metastatic endometrial carcinoma s/p prior hysterectomy:
-s/p pembrolizumab for a year with progression of disease, more recently treated with hormonal therapy which was ineffective
-Patient due to start chemotherapy 04/28/24 with Taxol/carboplatin with [facility]
-oncology following
Constipation exacerbated by opioids
-Continue lactulose
Other problems:
Chronic thrombocytosis
Essential hypertension: holding losartan until seen by PCP with GABY
Hyperlipidemia: resume statin on d/c
Anemia of chronic disease: Hb stable
Hyperkalemia: cont Lokelma. Start NS @ 125cc/hr. D50W/insulin.
DNR/DNI/heparin
Total time spent on today's encounter was 51 minutes which included time spent in counseling the patient/family regarding diagnosis and treatment plan as listed above, goals of care, and symptom management. Case was discussed with nursing staff,
specialists, and care coordinators/case management. All labs and imaging personally reviewed by me. Remainder the time spent in detailed review of previous records, lab data, imaging, and other medical provider documentation.
Anticipated Discharge: > 48 hours
Subjective/Interval History
-
Date of Service: April 26, 2024
No new complaints.
Objective Data
-
Labs:
Laboratory Results
04/26/24
06:46
WBC 20.6 H
Hgb 9.4 L
Hct 28.4 L
Plt Count 771 H
Sodium 129 L
Potassium 5.8 H
Chloride 103
Carbon Dioxide 18 L
BUN 53 H
Creatinine 1.7 H
Glucose 103 H
Calcium 8.6
Total Bilirubin 0.3
AST 44 H
ALT 12
Alkaline Phosphatase 188 H
Vital Signs:
Vital Signs
Temp Pulse Resp BP Pulse Ox
97.9 F 94 16 144/60 95
04/26/24 08:15 04/26/24 08:15 04/26/24 08:15 04/26/24 08:15 04/26/24 08:15
I&O
04/25/24 04/26/24 04/27/24
06:59 06:59 06:59
Intake Total 1320 / 1320
Balance 1320 / 1320
--- NOTE | 2024-04-26 12:24 | VNURNOTE ---
[facility] referral completed in [facility].
[2024-04-26] MEDS: DEXTROSE 50% SYRINGE 25 GRAMS IV (12:42)
[2024-04-26] MEDS: NOVOLIN R 0.100000000000000006 UNITS IV (12:47)
[2024-04-26] MEDS: NSS 1000 IV (12:53)
--- NOTE | 2024-04-26 12:53 | VATNOTE ---
04/26 no blood return from port. requsted RN for tPA order to dwell.
--- NOTE | 2024-04-26 12:58 | W.PN.ID1 ---
Date of Service
Date of Service: April 26, 2024
Today's Communication
Last day of cefuroxime.
Assessment / Plan
# Recurrent ascites due to peritoneal carcinomatosis s/p multiple paracentesis
# Leukocytosis
# Stage IV endometrial cancer with progression on Keytruda, has not initiated chemo
# Chronic right hydronephrosis due to carcinomatosis
# Chronic pain
# GABY on CKD4 improved
- 04/21/24 peritoneal fluid: 4,107 wbc, 64.5% lymphocytes, 36% polys. Cx negative
-04/25/24 Peritoneal fluid: 1,749 wbc, 77% lymphocytes, 23% polys, cx neg to date
Malignant peritoneal fluid analysis can appear similar to that of SBP
However, she received abx prior to paracentesis, which may mask culture.
Treating SBP empirically.
s/p ceftriaxone -> today is last day of cefuroxime 250mg bid through 04/26/24.
Chief Complaint
-: Other (Peritoneal carcinomatosus)
Subjective / Review of Systems
Abdominal pain slightly less after paracentesis
Vital Signs / Physical Exam
Vital Signs
Vital Signs
Temp Pulse Resp BP Pulse Ox
97.9 F 94 16 144/60 95
04/26/24 08:15 04/26/24 08:15 04/26/24 08:15 04/26/24 08:15 04/26/24 08:15
Physical Exam
Pulmonary: Clear
Gastrointestinal: Soft, Tender and Distended (mild to mod)
Extremities: Negative Edema
Objective Data
Lab Data
Lab Results
04/26/24 06:46
04/26/24 06:46
Estimated Creat Clear 21 ml/min 04/26/24 06:46
Lactic Acid 1.1 mmol/L (0.7-2.0) 04/20/24 17:38
Total Bilirubin 0.3 mg/dl (0.2-1.3) 04/26/24 06:46
AST 44 U/L (14-36) H 04/26/24 06:46
ALT 12 U/L (0-35) 04/26/24 06:46
Alkaline Phosphatase 188 U/L (38-126) H 04/26/24 06:46
Most recent labs reviewed.
Micro Results:
04/25/24 13:40 Body Fluid Culture - Preliminary
Peritoneal Fluid No Growth After 18-24 Hours
Gram Stain - Preliminary
04/20/24 18:24 Blood Culture - Final
Blood/Venous No Growth - Final Report
04/20/24 18:25 Blood Culture - Final
Blood/Venous No Growth - Final Report
04/21/24 08:07 Body Fluid Culture - Final
Peritoneal Fluid No Growth After 72 Hours
Gram Stain - Final
04/20/24 21:46 Urine Culture - Final
Urine
04/20/24 CT a/p wo : Severely limited examination without IV and oral contrast. There is a slight decrease in overall ascites, patient has had an interval paracentesis. There is persistent peritoneal metastatic disease. There is persistent severe
hydronephrosis of the right kidney. Likely related to the carcinomatosis. Moderate stool in the colon. No bowel obstruction. No free air. Small left pleural effusion and left base atelectasis unchanged.
[2024-04-26] MEDS: ZOFRAN 4 MG IV (13:19)
--- NOTE | 2024-04-26 15:35 | W.CON.NEPH ---
Consultation
-
Date/Time Consultation Requested: April 26, 2024 10 AM
Date/Time Consultation Performed: April 26, 2024 3 PM
Requesting Provider: Dr. Lucero
Performing Provider: Dr. Cooney
Reason for Consultation: Hyperkalemia
Medical History
-
Chief Complaint: Abdominal pain
History of Present Illness:
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 She also has peritoneal carcinomatosis as well as ascites. She has had multiple paracenteses. Over time she has
had unfortunate progression of disease and was in the process of starting chemotherapy with carboplatin, Taxol, Avastin. This was supposed to be this Wednesday. Unfortunately she had worsening abdominal distention with pain as well as decreased
appetite and weakness. She was sent to the emergency room for evaluation. She underwent paracentesis with empiric antibiotics. More recently her potassium began to rise now up to 5.8. Her creatinine has remained fairly stable for her CKD stage
IIIb/CKD 4. CT has however shown right-sided hydronephrosis which appears to be new. She has hyponatremia as well as a mild metabolic acidosis.
Past Medical History
Stage IV endometrial cancer with peritoneal carcinomatosis
Hypertension
Hyperlipidemia
Anemia
Hysterectomy
CKD 3B/CKD 4
Social History
Tobacco: Non-Smoker
Alcohol: None
Family History
No CKD
Allergies / Home Medications
Allergy/AdvReac Type Severity Reaction Status Date / Time
cefaclor [From [facility]] Allergy Rash Verified 04/20/24 11:50
shrimp Allergy RASH-Does Verified 04/20/24 21:21
eat shrimp
�Medication �Instructions �Recorded �Confirmed �Type
acetaminophen 500 mg tablet 1,000 mg PO QID Pain 04/09/24 04/20/24 History
(Tylenol Extra Strength)
carboxymethylcellulose sodium 1 % 0 drp BOTH EYES DAILYPRN PRN dry 04/09/24 04/20/24 History
eye liquid gel drops eyes
ondansetron HCl 8 mg tablet 8 mg PO QIDPRN PRN nausea/vomiting 04/09/24 04/20/24 History
peg 400-propylene glycol (PF) 0.4 1 drp BOTH EYES DAILYPRN PRN dry 04/09/24 04/20/24 History
%-0.3 % eye drops in a dropperette eyes
(Systane (PF))
rosuvastatin 5 mg tablet 5 mg PO QPM High Cholesterol 04/09/24 04/20/24 History
polyethylene glycol 3350 17 gram 17 g PO DAILYPRN PRN constipation 04/14/24 04/20/24 Rx
oral powder packet (HealthyLax) #30 ea
bisacodyl 5 mg tablet,delayed 15 mg PO HSPRN PRN constipation 04/20/24 04/20/24 History
release (Dulcolax (bisacodyl))
lidocaine-prilocaine 2.5 %-2.5 % 1 applic topical DIRECTED port 04/20/24 04/20/24 History
topical cream access
losartan 50 mg tablet 50 mg PO DAILY Blood Pressure 04/20/24 04/20/24 History
cefuroxime axetil 500 mg tablet 500 mg PO DAILY 4 days #4 tabs 04/23/24 Rx
oxycodone 5 mg tablet 5 mg PO Q4HPRN PRN mod sev pain 04/23/24 Rx
#14 tabs
Review of Systems
-
Constipation. No issues with urination. Abdominal distention. Weakness. Decreased appetite.
All other systems: Negative unless noted
Physical Exam
Vital Signs
Vital Signs
Temp Pulse Resp BP Pulse Ox
97.9 F 94 16 144/60 95
04/26/24 08:15 04/26/24 08:15 04/26/24 08:15 04/26/24 08:15 04/26/24 08:15
Lab Results
WBC 20.6 10^3/uL (4.8-10.8) H 04/26/24 06:46
RBC 3.17 10^6/uL (4.20-5.40) L 04/26/24 06:46
Hgb 9.4 g/dL (12.0-16.0) L 04/26/24 06:46
Hct 28.4 % (37.0-47.0) L 04/26/24 06:46
Plt Count 771 10^3/uL (130-400) H 04/26/24 06:46
eGFR 29.39 04/26/24 06:46
Albumin 1.9 g/dl (3.5-5.0) L 04/26/24 06:46
Physical Exam
Patient is awake alert oriented and in no distress. Mood and affect were pleasant, insight and judgment were good. Pupils are equal round and reactive to light, extraocular movements are intact, sclera were anicteric. Hearing was normal, ears and
nose are intact. Oropharynx was clear. Neck was supple with trachea midline and no thyromegaly. Heart was regular rate and rhythm without rubs. Lower extremities with 1+ edema. Lungs were clear to auscultation bilaterally and with normal
excursion. Abdomen was soft, nontender, with normal active bowel sounds, and no hepatosplenomegaly. Skin was without rash and with normal turgor.
Data Reviewed
-
CT Scan: Report Reviewed by me (CT of the abdomen and pelvis without contrast on April 20, 2024 shows persistent peritoneal disease, right hydronephrosis)
Medical Tests (Nuc Med, Echo etc): Image Personally Visualized and interpreted (EKG on April 09, 2024 by my reading shows normal sinus rhythm)
Labs: Labs Reviewed by me (WBC 20.6, hemoglobin 9.4, platelets 771, sodium 129, potassium 5.8, bicarbonate 18, creatinine 1.7, calcium 8.6, BUN 53)
Old Records: Reviewed (On 04/14/2024 creatinine 1.8, sodium 133, potassium 4.2 CT abdomen pelvis on April 09, 2024 shows moderate right hydronephrosis; )
Assessment/Plan
-
Assessment:
CKD 4
Hyperkalemia
Metabolic acidosis
Hyponatremia
Hypertension
Stage IV endometrial carcinoma
Ascites
Right hydronephrosis
Back pain
Plan:
Continue Lokelma
insulin/D50 as required
Serial BMP
Use bicarbonate IV fluids
Add Lasix
had questioned why chemotherapy cannot be given while in the hospital. I tried to explain to him that her performance status is poor and chemotherapy would only worsen this.
Prognosis is unfortunately poor
--- NOTE | 2024-04-26 15:36 | W.PN.UPDATE ---
Update Note
Progress Note Update
Jodi of IV team requested order to be placed for cathflo for port. Order placed
[2024-04-26] MEDS: LASIX 40 MG IV (16:02)
--- NOTE | 2024-04-26 16:03 | W.PN.ONC2 ---
Today's Communication / Plan
-
Pt appears to be declining.
I am meeting the pt for the first time today but current performance status may preclude chemotherapy.
I do not have a reversible cause for her weakness.
Discussed the 'rock and a hard place' of having ascites but also needing IVF's as not taking much PO's.
Started goals of care discussion. Pt has long relationship with Dr. Campbell who will see pt and weigh in on goals of care given her current PS.
Impression
Impression
Metastatic endometrial cancer
Recurrent peritoneal carcinomatosis
Malignant ascites s/p paracentesis x3
Abdominal distention
Diffuse abdominal pain/tenderness
Acute kidney injury
Severe hydronephrosis right kidney
Recent urinary tract infection
Hyponatremia
Leukocytosis
Acute on chronic anemia
Reactive thrombocytosis
Plan
Plan
Stage IV endometrial cancer
Failure to thrive
Cancer-related pain
Abdominal pain not resolved with paracentesis
Generalized weakness
Subjective/Objective
Chief Complaint
Heme/Onc follow up of recurrent endometrial cancer complicated by carcinomatosis with ascites
Subjective
Pt c/o ongoing abdominal pain, states not much improved following paracentesis.
Pt not well-controlled on current regimen.
Cr increased so she is getting hydration but also has been requiring frequent paracentesis.
Vital Signs:
Vital Signs
Temp Pulse Resp BP Pulse Ox
97.9 F 94 16 144/60 95
04/26/24 08:15 04/26/24 08:15 04/26/24 08:15 04/26/24 08:15 04/26/24 08:15
Lab Results:
Laboratory Data
WBC 20.6 10^3/uL (4.8-10.8) H 04/26/24 06:46
Hgb 9.4 g/dL (12.0-16.0) L 04/26/24 06:46
Plt Count 771 10^3/uL (130-400) H 04/26/24 06:46
eGFR 29.39 04/26/24 06:46
Physical Exam
Frail appearing
Abd mildly distended, mildly tender
Review of Systems
Review of Systems
States marked weakness, has not been oob much, states only walked to bathroom a couple days ago.
Constitutional: Reports Fatigue
Head: Denies Sore Throat or Hearing Loss
Respiratory: Denies Dyspnea or Cough
Cardiovascular: Denies Chest Pain or Palpitations
Gastrointestinal: Reports Other (Abd pain, not well controlled on current regimen); Denies Nausea/Vomiting or Diarrhea
Genitourinary: Denies Hematuria
Skin: Denies Rash or Pruritis
Neurological: Denies Headache or Numbness
Psychiatric: Reports Depression
[2024-04-26] MEDS: SODIUM BICARBONATE 1150 MEQ IV (16:14)
[2024-04-26] MEDS: CATHFLO/ACTIVASE 2 MG IV (16:15)
--- NOTE | 2024-04-26 16:26 | CM ---
Chart reviewed and family requesting update on patient progress, per physical therapy notes recommendation is for homecare for patient, plan is to home with [facility].
Plan; Home with spouse and [facility].
[2024-04-26 16:49] VITALS: BP 143/57
[2024-04-26 17:04] LABS: Blood Urea Nitrogen 53 mg/dl (7-17); Calcium 8.5 mg/dl (8.4-10.2); Carbon Dioxide 23 mmol/L (22-30); Chloride 101 mmol/L (98-107); Estimated Creatinine Clearance 19 ml/min; Glucose 136 mg/dl (70-99); Potassium 4.9 mmol/L (3.5-5.1); Sodium 129 mmol/L (135-145); eGFR 25.72
[2024-04-26] MEDS: LOKELMA PO (17:14)
--- NOTE | 2024-04-26 17:14 | PTCARENOTE ---
Patient refused 1800 dose of Lokelma, needs much encouragement for PO intake. family in at present
--- NOTE | 2024-04-26 21:29 | W.CON.GYNONC ---
Addendum entered and electronically signed by Dante Campbell MD 04/27/24 05:45:
Patient is using IV dilaudid for analgesic at this time.
She has good control of pain with Oxycodone at home.
I suggest starting duragesic patch 25 mcg q 72 hrs and use OxyIR 5-10 mg po every 3-4 hr for breakthrough.
I suggest palliative care consult for inpatient and hopefully some continued nursing care at home.
Original Note:
Chief Complaint
-
abdominal pain and distension due to recurrent endometrial cancer.
History of Present Illness
83 yo WF admitted 07/21 for abdominal distension secondary to recurrentmetastatic endometrial cancer status post prior hysterectomy, peritoneal carcinomatosis hypertension, hypercholesteremia, constipation, presumed CKD 4, normocytic anemia, pagets
disease of vulva presenting with increased abdominal pain radiating to the back, distention and weakness since recent discharge for malignant ascites. She denies fevers or chills. She denies nausea or vomiting. She has been constipated and her
last bowel movement 5 days ago.
Patient was recently discharged 5 days ago after being admitted for worsening abdominal distention and pain and bloating. Patient was found to have recurrent malignant ascites status post paracentesis of 2.6 L. Patient reaccumulation of fluid and
repeat paracentesis.
During this admission she had CT which showed there is a slight decrease in overall ascites, patient has had an interval paracentesis.
There is persistent peritoneal metastatic disease. There is persistent severe hydronephrosis of the right kidney. Likely related to the carcinomatosis. Moderate stool in the colon. No bowel obstruction. No free air. Small left pleural effusion
Medical History
Allergies
Allergies reflect when allergies were last updated in [facility].
cefaclor [From Ceclor] Allergy (Verified 04/20/24 11:50)
Rash
shrimp Allergy (Verified 04/20/24 21:21)
RASH-Does eat shrimp
Review of Systems
-
Constitutional: Reports Weight Loss and Chills
Respiratory: Reports No Symptoms
Cardiac: Reports No Symptoms
Abdomen/GI: Reports Abdominal Pain and Other (decreased appeitite)
: Reports No Symptoms
Musculoskeletal: Reports Edema
Physical Exam
Vital Signs / I&O
Vitals
Temp Pulse Resp BP Pulse Ox
98.3 F 96 20 143/57 94
04/26/24 16:49 04/26/24 16:49 04/26/24 16:49 04/26/24 16:49 04/26/24 16:49
I&O
04/24/24 04/25/24 04/26/24 04/27/24
06:59 06:59 06:59 06:59
Intake Total 1919 / 0 1320 / 1320 1760 / 1760
Output Total 400 / 400
Balance 19190 1320 / 1320 1360 / 1360
Physical Exam
General: Pain and Poor Appetite
HEENT: Normocephalic
Respiratory: Clear
Cardiac: Regular Rhythm
Genito-urinary: No Costovertebral Tend
Skin: Warm
Neuro: Awake, Alert and Oriented
Hematologic/Lymphatic: No Lymphadenopathy
Psych: Intact Judgement
Results
-
04/26/24 06:46
04/26/24 16:38
Data Reviewed
-
Total Time Spent with Patient (in minutes): 45
Diagnostic Radiology: Image personally visualized and interpreted
Impression / Plan
-
I spoke at length with patient and her and daughter
she is not willing to stop but remains realistic about her very poor prognosis.
She has abdominal pain, rising wbc, rising Cr level as acute on CKD, hyponatremia and hypoalbuminemia
She has a living will and is DNR.
she has never been on chemo before for this disease and would like to have a chance to try fighting. Her family is supportive.
I discussed comfort care and transition to hospice.
she cannot get chemo with unstable Cr level.
I suggest if she has rising Cr level, consider PCN placement throught IR on right. COnsult urology to see if they are willing to place a JJ stent.
I dont think her Na is going to correct , it is due to intravascular dehydration. will correct eventually if we can get her disease under control
I suggest considering single agent carbo AUC 5 v taxol low dose with carbo as outpatient when stable.
She ciaran be likely in and out of hospital but she understand it may take 4-8 weeks befofe we see improvent in ascites.
[2024-04-27 00:05] VITALS: BP 114/44
[2024-04-27] MEDS: SODIUM BICARBONATE 1150 MEQ IV (03:26)
[2024-04-27] MEDS: ROXICODONE 5 MG PO ×3 (04:13→13:13)
[2024-04-27 05:29] LABS: Blood Urea Nitrogen 52 mg/dl (7-17); Calcium 7.8 mg/dl (8.4-10.2); Carbon Dioxide 28 mmol/L (22-30); Chloride 98 mmol/L (98-107); Estimated Creatinine Clearance 23 ml/min; Glucose 109 mg/dl (70-99); Potassium 4.7 mmol/L (3.5-5.1); Sodium 129 mmol/L (135-145); eGFR 31.61
[2024-04-27] MEDS: LOKELMA 10 GRAM PO (06:14)
[2024-04-27 07:48] VITALS: BP 114/56
[2024-04-27] MEDS: DUPHALAC/CHRONULAC 20 GRAMS PO (08:29)
[2024-04-27] MEDS: LIDOCAINE 4% PATCH 1 PATCH TOPICAL (08:29)
[2024-04-27] MEDS: MIRALAX 17 GRAMS PO (08:31)
[2024-04-27] MEDS: HEPARIN 5000 UNITS SC (08:33)
--- NOTE | 2024-04-27 08:58 | W.PN.HOSP.TC ---
Addendum entered and electronically signed by Kenji Lucero MD 04/27/24 14:20:
Case discussed with Dr. Cooney. From his standpoint the pt is medically stable for d/c after Samsca being given today.
Total time spent on d/c = 40 min. This included today's physical exam, progress note, review of laboratory and diagnostic data, preparation of discharge documents and prescriptions, and discussions about the pt's hospital course and discharge plan
with the patient and other medical scientific officer involved in the patient's care.
Original Note:
Today's Communication/Plan
-
see bold
Assessment / Plan
Assessment / Plan
Gen: NAD, AAOx3, appears chronically ill and malnourished.
Eyes: EOMI, PERRLA, no scleral icterus.
Neck: supple.
CV: continues to remain RRR, +S1/S2, no m/r/g.
Resp: continues to remain CTAB, no rales, wheezes, or rhonchi.
Abd: +BS, soft, mild distention with ascites, NT
Skin: No rashes.
Neuro: CN 2-12 intact, non-focal.
Psych: Normal mood and affect.
04/25/24 13:40 Peritoneal Fluid Body Fluid Culture - Preliminary
No Growth After 18-24 Hours
04/25/24 13:40 Peritoneal Fluid Gram Stain - Preliminary
04/20/24 18:24 Blood/Venous Blood Culture - Final
No Growth - Final Report
04/20/24 18:25 Blood/Venous Blood Culture - Final
No Growth - Final Report
04/21/24 08:07 Peritoneal Fluid Body Fluid Culture - Final
No Growth After 72 Hours
04/21/24 08:07 Peritoneal Fluid Gram Stain - Final
04/20/24 21:46 Urine Urine Culture - Final
GABY on CKD4:
-with severe Right Hydronephrosis
-Cr 2.3 on admission, then 1.4 after IVFs. IVFs were stopped, then Cr increase to 1.9. Lasix 40mg IV given on 04/26/24. NaHCO3 IVFs started. Cr improving, now 1.6.
-renal following
-after discussion with urology and risk of infection, favoring holding off nephrostomy tube especially with renal function stability
-holding losartan until seen by PCP
Acute on chronic hyponatremia due to decreased solute intake/SIADH of malignancy:
-Sodium 126 on admission, now 129
-cont FR 1200cc/day
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
-with possible SBP
-s/p paracentesis on 04/21/24 (fluid count can misrepresent SBP when malignant peritoneal fluid is present)
-s/p paracentesis on 04/25/24 for 1950cc (fluid count can misrepresent SBP when malignant peritoneal fluid is present)
-was on Rocephin and was then transitioned to Ceftin and complete 7 days of antibiotic therapy as per ID on 03/2924
-peritoneal fluid Cxs NGTD
-Oncology recommended against peritoneal drainage catheter during last admission due to risk of infection
-pain control with oxycodone/IV dilaudid
Metastatic endometrial carcinoma s/p prior hysterectomy:
-s/p pembrolizumab for a year with progression of disease, more recently treated with hormonal therapy which was ineffective
-Patient was due to start chemotherapy 04/28/24 with Taxol/carboplatin with [facility]
-oncology following, case discussed with Dr. Menjivar
-highly doubt patient is a candidate for chemotherapy at this time based on current functional status, acute kidney injury, hyponatremia, etc.
Other problems:
Constipation exacerbated by opioids: Continue lactulose
Chronic thrombocytosis
Essential hypertension: holding losartan until seen by PCP with GABY
Hyperlipidemia: resume statin on d/c
Anemia of chronic disease: Hb stable
Hyperkalemia: resolved with Lokelma/IVFs/Lasix
DNR/DNI/heparin
Anticipated Discharge: > 48 hours
Subjective/Interval History
-
Date of Service: April 27, 2024
Denies CP/SOB/abd pain.
Objective Data
-
Labs:
Laboratory Results
04/27/24
04:27
Sodium 129 L
Potassium 4.7
Chloride 98
Carbon Dioxide 28
BUN 52 H
Creatinine 1.6 H
Glucose 109 H
Calcium 7.8 L
Vital Signs:
Vital Signs
Temp Pulse Resp BP Pulse Ox
97.9 F 86 18 114/56 95
04/27/24 07:48 04/27/24 07:48 04/27/24 07:48 04/27/24 07:48 04/27/24 07:48
I&O
04/26/24 04/27/24 04/28/24
06:59 06:59 06:59
Intake Total 2960 / 2960
Output Total 400 / 400
Balance 2560 / 2560
--- NOTE | 2024-04-27 10:55 | W.PN.NEPH.PH ---
Today's Communication / Plan
-
samsca
Assessment/Plan
-
Assessment:
CKD 4
Hyperkalemia
Metabolic acidosis
Hyponatremia
Hypertension
Stage IV endometrial carcinoma
Ascites
Right hydronephrosis
Back pain
Plan:
low dose samsca today
follow BMP
cap IVF
no ARB for now
could be discharged from renal standpoint for chemo tomorrow
-
-
Date of Service: April 27, 2024
CC / HPI / ROS
-
Chief Complaint:
hyponatremia
History of Present Illness:
Na stable at 129
acidosis better
GABY/Cr down to 1.6
Review of Systems:
no CP/SOB
Labs
-
Labs:
WBC 20.6 10^3/uL (4.8-10.8) H 04/26/24 06:46
RBC 3.17 10^6/uL (4.20-5.40) L 04/26/24 06:46
Hgb 9.4 g/dL (12.0-16.0) L 04/26/24 06:46
Hct 28.4 % (37.0-47.0) L 04/26/24 06:46
Plt Count 771 10^3/uL (130-400) H 04/26/24 06:46
Sodium 129 mmol/L (135-145) L 04/27/24 04:27
Potassium 4.7 mmol/L (3.5-5.1) 04/27/24 04:27
Chloride 98 mmol/L (98-107) 04/27/24 04:27
Carbon Dioxide 28 mmol/L (22-30) 04/27/24 04:27
BUN 52 mg/dl (7-17) H 05/30/24 04:27
Creatinine 1.6 mg/dL (0.6-1.0) H 04/27/24 04:27
eGFR 31.61 04/27/24 04:27
Glucose 109 mg/dl (70-99) H 04/27/24 04:27
Calcium 7.8 mg/dl (8.4-10.2) L 04/27/24 04:27
Albumin 1.9 g/dl (3.5-5.0) L 04/26/24 06:46
Physical Exam
-
Vital Signs:
Vital Signs
Temp Pulse Resp BP Pulse Ox
97.9 F 86 18 114/56 95
04/27/24 07:48 04/27/24 07:48 04/27/24 07:48 04/27/24 07:48 04/27/24 07:48
Cardiovascular:: Regular rate and rhythm
Respiratory:: Bilateral: Coarse
Lung Excursion:: Normal
Abdomen:: Nontender and Soft
Bowel Sounds:: Normal
Extremity Edema:: None: Bilateral:
[2024-04-27] MEDS: SAMSCA 7.5 MG PO (11:06)
[2024-04-27 13:36] VITALS: BP 126/58; PULSE 95; O2SAT 93
--- NOTE | 2024-04-27 14:39 | W.DCSUMMARY ---
Discharge Summary
Discharge Data
Date of Admission: 04/20/24
Date of Discharge: 04/27/24
-
Pending Results: No
Hospital Course
Primary diagnoses:
Abdominal pain possibly due to spontaneous bacterial peritonitis
Hyponatremia
Acute kidney injury on chronic kidney disease stage IV
Secondary diagnoses:
Metastatic endometrial carcinoma s/p prior hysterectomy and treatment with pembrolizumab for a year with progression of disease
Constipation exacerbated by opioids
Chronic thrombocytosis
Essential hypertension
Hyperlipidemia
Anemia of chronic disease
Hyperkalemia
Consultants:
Nephrology
Oncology
Gynecology oncology
Infectious disease
Imaging:
CT A/P: Severely limited examination without IV and oral contrast. There is a slight decrease in overall ascites, patient has had an interval paracentesis. There is persistent peritoneal metastatic disease. There is persistent severe hydronephrosis
of the right kidney. Likely related to the carcinomatosis. Moderate stool in the colon. No bowel obstruction. No free air. Small left pleural effusion and left base atelectasis unchanged. No findings to explain the patient's additional pain.
83-year-old female who presented with a chief complaint of abdominal pain as outlined in H&P done admission. Hospital course or problems:
GABY on CKD4: Patient's creatinine was 2.3 on admission. She also had severe Right Hydronephrosis. Her losartan was stopped. Her creatinine improved to 1.4 after IV fluids. Her right foot. Then her creatinine increased to 1.9. Patient was given
a dose of Lasix 40 mg IV on April 26, 2024. She received sodium bicarb and IV fluids. Her creatinine improved to 1.6. Of note the patient also had hyperkalemia and this resolved with IV fluids, Lasix, and Lokelma. She was seen by nephrology.
Acute on chronic hyponatremia due to decreased solute intake/SIADH of malignancy: Patient had a sodium of 126 on admission. Overall her sodium improved to 129 while hospitalized. She was given 7.5 mg of Samsca on the day of discharge.
Recurrent malignant ascites secondary to peritoneal carcinomatosis: The patient also possibly had spontaneous bacterial peritonitis. She underwent 2 paracenteses (on 04/21/24 and 04/25/24). The ascitic fluid did have a high white cell count but this
could have been due to her peritoneal carcinomatosis and not infection. She was seen in consultation by infectious disease. She was on Rocephin and then transitioned to Ceftin and completed 7 days of antibiotic therapy on 03/2924. Her peritoneal
fluid cultures were no growth to date. Oncology recommended against peritoneal drainage catheter during last admission due to risk of infection.
Discharge Plan
-
Patient Disposition: Home (Routine Discharge)
Discharge Diagnosis/Procedures: Abdominal pain possibly due to spontaneous bacterial peritonitis, hyponatremia, acute kidney injury
Condition: Fair
Diet: Low Fat, Low Cholesterol, 2 Gram Sodium and Restrict fluids to 48 oz
Activity: As tolerated
Driving Restrictions: Not until seen by your Dr
Bathing Restrictions: None
Blood Work: cbc and cmp in 3-5 days with pcp/oncologist
Referrals:
Dora Zepeda MD [Family Provider] - in less than 1 week
Adiel Garcia MD [Active] - (as scheduled)
Prescriptions:
Continued
ondansetron HCl 8 mg Tablet
8 mg PO QIDPRN PRN (Reason: nausea/vomiting)
acetaminophen [Tylenol Extra Strength] 500 mg Tablet
1,000 mg PO QID
carboxymethylcellulose sodium 1 % Drops, Liquid Gel
0 drp BOTH EYES DAILYPRN PRN (Reason: dry eyes)
Patient Comments:
04/20/2024, per pt., she uses PF eye drops and will place as many drops as she can get into each eye so she doesn't waste it.
Systane (PF) 0.4-0.3 % Dropperette
1 drp BOTH EYES DAILYPRN PRN (Reason: dry eyes)
polyethylene glycol 3350 [HealthyLax] 17 gram Powder In Packet
17 g PO DAILYPRN PRN (Reason: constipation) Qty: 30 0RF
lidocaine-prilocaine 2.5-2.5 % Cream
1 applic TOPICAL DIRECTED
Patient Comments:
04/20/2024, used to access port for chemo treatment.
bisacodyl [Dulcolax (bisacodyl)] 5 mg Tablet,Delayed Release (Dr/Ec)
15 mg PO HSPRN PRN (Reason: constipation)
oxycodone 5 mg Tablet
5 mg PO Q4HPRN PRN (Reason: mod sev pain) Qty: 14 0RF
Discontinued
rosuvastatin 5 mg Tablet
5 mg PO QPM
losartan 50 mg Tablet
50 mg PO DAILY
Hold Instructions: Resume on 05/03/24. hold until cleared by pcp
Discharge Orders:
Discharge Patient (As Directed); Ordered 04/27/24
Ordered By: Kenji Lucero
Discharge Date and Time
Print Language: KYRGYZ
[2024-04-27 14:43] VITALS: BP 139/64
--- NOTE | 2024-04-27 14:43 | CM ---
Home today with [facility].
Plan; Home with [facility].
== END 2024-04-27 15:00 | disposition home health service (06) | DRG 374 ==
LOC: 4 WEST ACU 20:40
PROVIDERS: Emergency Medicine; Internal Medicine; Nurse Practitioner Family; Physician Assistant; Radiology Diagnostic Radiology; Radiology Vascular & Interventional Radiology; ADMITTING PHYSICIAN Hospitalist; ATTENDING PHYSICIAN Internal Medicine; CONSULT PHYSICIAN Internal Medicine Hematology & Oncology; CONSULT PHYSICIAN Internal Medicine Infectious Disease; CONSULT PHYSICIAN Obstetrics & Gynecology Gynecologic Oncology; EMERGENCY PHYSICIAN Emergency Medicine; FAMILY PHYSICIAN Family Medicine; OTHER PHYSICIAN Specialist
PROC: 0W9G3ZX Drainage of Peritoneal Cavity, Percutaneous Approach, Diagnostic (ICD-10-PCS; 2024-04-21)
PROC: 0W9G3ZZ Drainage of Peritoneal Cavity, Percutaneous Approach (ICD-10-PCS; 2024-04-25)
DX: C78.6 Secondary malignant neoplasm of retroperitoneum and peritoneum (principal); K65.2 Spontaneous bacterial peritonitis; R18.0 Malignant ascites; N17.9 Acute kidney failure, unspecified; N18.4 Chronic kidney disease, stage 4 (severe); E22.2 Syndrome of inappropriate secretion of antidiuretic hormone; N13.30 Unspecified hydronephrosis; E87.20 Acidosis, unspecified; E44.0 Moderate protein-calorie malnutrition; C54.1 Malignant neoplasm of endometrium; E78.00 Pure hypercholesterolemia, unspecified; I12.9 Hypertensive chronic kidney disease with stage 1 through stage 4 chronic kidney disease, or unspecified chronic kidney disease; K59.03 Drug induced constipation; K59.09 Other constipation; D63.8 Anemia in other chronic diseases classified elsewhere; G89.3 Neoplasm related pain (acute) (chronic); R62.7 Adult failure to thrive; E87.5 Hyperkalemia; D72.829 Elevated white blood cell count, unspecified; D75.838 Other thrombocytosis; M54.9 Dorsalgia, unspecified; Z66 Do not resuscitate; Z87.440 Personal history of urinary (tract) infections; Z90.710 Acquired absence of both cervix and uterus; Z85.42 Personal history of malignant neoplasm of other parts of uterus; Z88.1 Allergy status to other antibiotic agents; Z91.013 Allergy to seafood; Z68.21 Body mass index [BMI] 21.0-21.9, adult
CPT/HCPCS: 49083; 74022; 74176; 80048; 80053; 81003; 81015; 82042; 82150; 82728; 83010; 83540; 83550; 83605; 83615; 83735; 83935; 84157; 84300; 85025; 85027; 85045; 87015; 87040; 87070; 87086; 87205; 89051; 96361; 96374; 96375; 97116; 97162; 97530; 99285; J2997

== ENCOUNTER 2024-05-01 20:12 | Inpatient (IN) | payer OTHER, SELFPAY ==
[2024-05-01 12:40] VITALS: BP 116/57
[2024-05-01 13:28] LABS: % Basophils 0.1 % (0-2); % Immature Granulocytes 0.9 % (0-0.5); % Lymphocytes 1.8 % (20.5-51.1); % Monocytes 0.4 % (1.7-9.3); % Neutrophils 96.8 % (42.2-75.2); Absolute Immature Granulocytes 0.2 10^3/uL (0-0.05); Absolute Lymphocytes 0.5 10^3/uL (1.2-3.4); Absolute Monocytes 0.1 10^3/uL (0.1-0.6); Absolute Neutrophils 24.2 10^3/uL (1.4-6.5); Hematocrit 31.6 % (37.0-47.0); Hemoglobin 10.1 g/dL (12.0-16.0); Mean Corpuscular Hgb 29.4 pg (27.0-31.0); Mean Corpuscular Volume 92.1 fL (81.0-99.0); Mean Platelet Volume 9.1 fL (7.4-10.4); Nucleated Red Blood Cells % 0.1 %; Platelet Count 621 10^3/uL (130-400); Red Blood Cell Count 3.43 10^6/uL (4.20-5.40); Red Cell Dist. Width 13.8 % (11.5-14.5)
[2024-05-01 13:33] LABS: ALT (SGPT) 23 U/L (0-35); AST (SGOT) 142 U/L (14-36); Albumin 2.5 g/dl (3.5-5.0); Alkaline Phosphatase 191 U/L (38-126); Blood Urea Nitrogen 68 mg/dl (7-17); Calcium 8.3 mg/dl (8.4-10.2); Carbon Dioxide 27 mmol/L (22-30); Chloride 95 mmol/L (98-107); Glucose 129 mg/dl (70-99); Potassium 5.2 mmol/L (3.5-5.1); Sodium 129 mmol/L (135-145); Total Bilirubin 0.4 mg/dl (0.2-1.3); Total Protein 5.3 g/dl (6.3-8.2); eGFR 29.39
[2024-05-01 13:40] LABS: INR 0.99; PT 12.9 Sec (11.4-14.6)
[2024-05-01 13:41] LABS: APTT 26.5 Sec (23.4-35.0)
[2024-05-01 15:27] VITALS: BP 117/44
--- NOTE | 2024-05-01 18:08 | ED.GENMED ---
History of Present Illness
General
Chief Complaint: Abdominal Symptoms
Source: patient
Exam Limitations: none
Time Seen by Provider: 05/01/24 17:55
Travel History
Have you had any contact with someone who has COVID-19?: No
Do you have any symptoms of coronavirus? Fever > 100 degrees, chills, cough, shortness of breath, sore throat, loss of taste or smell, muscle aches, or headache?: No
History of Present Illness
History of Present Illness:
This is a 83 year old female that comes in with c/o 'abdomen is over flowing'. States that it is time to drain her abd again. States that she has a Paracentesis a week ago tomorrow. States that she has been leaking from the last site and gets pretty
wet during the night. States that she is very weak, feels SOB, nausea with abd pain and dizziness. States that she had chemo on Wednesday and just had a shot to elevated her WBC's. Denies any fever, chills, chest pain, vomiting, diarrhea, headache,
urinary burning.
Past History
Past History
ED Past Medical History: Cancer (Endometrial cancer, T-cell Lymphoma), HTN, Hypercholesterolemia and Other (Migraines, Ascites, ); Negative NIDDM
ED Past Surgical History: Gynecological (Vulvectomy, Hysterectomy, Breast lumpectomy) and Other (Cataracts, )
Social History
Tobacco: Former smoker
Alcohol: None
Drug: None
Personal:
Living: with family
Review of Systems
Review of Systems
All Other Systems: ROS reviewed and negative except as documented in HPI and ROS
Constitutional: Reports no symptoms; Denies fever or chills
EENT: Reports no symptoms
Respiratory: Reports trouble breathing; Denies cough
Cardiac: Reports no symptoms; Denies chest pain
ABD/GI: Reports abdominal pain, nausea and other (Ascites); Denies vomiting or diarrhea
: Reports no symptoms; Denies dysuria, frequency or urgency
Musculoskeletal: Reports no symptoms
Skin: Reports no symptoms
Neurological: Reports dizzy; Denies headache
Psychiatric: Reports no symptoms
Phy Exam
General Physical Exam
General Presentation: no apparent distress
General age: appears stated age
General Skin: warm and dry
General Habitus: elderly
General Mental: alert
General Hydration: appears well hydrated
ENT Exam
ENT Exam: TM's normal, pharynx normal and neck supple
Eye Exam
Eye Exam: EOMI
Cardiovascular Exam
Cardiovascular Exam: regular rate/rhythm and normal peripheral pulses
Pulmonary Exam
Pulmonary Exam: lungs clear, no respiratory distress, no rales, chest non tender, no crackles, no rhonchi, no wheezing and no cough
Gastrointestinal Exam
Gastrointestinal Exam: soft, no organomegaly, no pulsatile mass, ascites and other (Hypoactive bowel sounds)
Musculoskeletal Exam
Musculoskeletal Exam: full ROM and edema (+2 pitting edema of the lower legs. )
Skin Exam
Skin Exam: normal color, no rash, no petechia and cyanosis
Psychiatric Exam
Psychiatric Exam: normal mood/affect
Course
Orders/Labs/Results
Orders:
Orders
05/01/24 13:02
Complete Blood Count/With Diff Urgent
Comprehensive Metabolic Panel Urgent
Protime/PTT Urgent
05/01/24 18:07
US Abdomen Limited Urgent
Comment:
Reason For Exam: Ascites check
05/01/24 18:08
CR Chest - 2 Views Urgent
Comment:
Reason For Exam: SOB
05/01/24 18:12
Morphine Sulfate 2 mg IV NOW STA
05/01/24 18:38
Admit/Transfer Patient As Directed
Co-Sign Provider:
Level of Care: Inpatient admission
Assign to:: Medical/Surgical
Physician / Group: evelyn
Diagnosis: peritoneal caricnomatosis
Reason for Hospitalization: peritoneal caricnomatosis
Expected length of stay greater than two midnights?: Yes
ELOS- Estimated Length of Stay in days: 2
I certify the patient meets the requirements for IP care: Yes
05/01/24 18:39
Code Status As Directed
Resuscitation Status: Do not resuscitate
Reached after discussion with pt or family/Healthcare POA: Yes
DNR Bracelet Application ONCE
05/01/24 18:45
Body Fluid Albumin Routine
Fluid Source: Peritoneal (Ascites)
Body Fluid Amylase Routine
Fluid Source: Peritoneal (Ascites)
Body Fluid Cell Count Routine
What is the Body Fluid: peritoneal fluid
Comment: post procedure
Body Fluid LDH Routine
Fluid Source: Peritoneal (Ascites)
Body Fluid Protein Routine
Fluid Source: Peritoneal (Ascites)
Fluid Culture with Gram Stain Routine
JABIER Source: Peritoneal Fluid
Specimen Description:
Comment: Post Procedure
05/01/24 19:33
Alteplase [Cathflo/Activase] 2 mg IV NOW STA
05/01/24 19:36
Type+Screen Urgent
05/01/24 20:00
CefTRIAXone [Rocephin] 1,000 mg IV Q24H
Sterile Water [Sterile Water For Injection] 10 ml IV Q24H
05/02/24 06:00
Gram Stain IN AM
JABIER Source: Abdomen
Specimen Description:
Abnormal Lab Results
05/01/24
13:02
WBC 25.0 H 10^3/uL
(4.8-10.8)
RBC 3.43 L 10^6/uL
(4.20-5.40)
Hgb 10.1 L g/dL
(12.0-16.0)
Hct 31.6 L %
(37.0-47.0)
MCHC 32.0 L g/dL
(33.0-37.0)
Plt Count 621 H 10^3/uL
(130-400)
Abs Immat Gran (auto) 0.2 H 10^3/uL
(0-0.05)
Absolute Neuts (auto) 24.2 H 10^3/uL
(1.4-6.5)
Absolute Lymphs (auto) 0.5 L 10^3/uL
(1.2-3.4)
Immature Gran % 0.9 H %
(0-0.5)
Neutrophils % 96.8 H %
(42.2-75.2)
Lymphocytes % 1.8 L %
(20.5-51.1)
Monocytes % 0.4 L %
(1.7-9.3)
Sodium 129 L mmol/L
(135-145)
Potassium 5.2 H mmol/L
(3.5-5.1)
Chloride 95 L mmol/L
(98-107)
BUN 68 H mg/dl
(7-17)
Creatinine 1.7 H mg/dL
(0.6-1.0)
Glucose 129 H mg/dl
(70-99)
Calcium 8.3 L mg/dl
(8.4-10.2)
AST 142 H U/L
(14-36)
Alkaline Phosphatase 191 H U/L
(38-126)
Total Protein 5.3 L g/dl
(6.3-8.2)
Albumin 2.5 L g/dl
(3.5-5.0)
05/01/24 13:02
05/01/24 13:02
Leukocytosis, H/H low increased from prior labs,Thrombocythemia, Hyponatremia, Potassium slightly elevated. Chronic renal insufficiency, Glucose nonfasting. AST elevation. Alk phos elevtyion. Total protein low. Albumin low. PT 12.9 with INR 0.99,
PTT 26.5
Vital Signs
Initial and Last Documented VS:
Initial Vital Signs
Temp Pulse Resp BP Pulse Ox
98.7 F 101 18 116/57 94
05/01/24 12:40 05/01/24 12:40 05/01/24 12:40 05/01/24 12:40 05/01/24 12:40
Last Documented Vital Signs
Temp Pulse Resp BP Pulse Ox
97.7 F 99 16 117/44 97
05/01/24 15:27 05/01/24 15:27 05/01/24 15:27 05/01/24 15:27 05/01/24 15:27
MDM/Problems Addressed
Differential Diagnosis Includes:
Ascites, Weakness
MDM/Problems Addressed:
This is a 83 year old female that comes in with c/o abd ascites. States that she is very weak and needs to be drained.
Will get labs and US. Explained to patient that she will need to be admitted. Explained that her albumin is low and she may need albumin before they can tap her abd. Her Sodium is low. Hospitalist notified.
Chronic conditions affecting care: Cancer
Acute Exacerbation and/or Progression of Chronic Illness: Cancer
*Radiology
Radiology exam reviewed: preliminary read by ED provider (Chest- bilateral pleural effusion) and radiology read reviewed (Chest-Bilateral pleural effusions. Progressed on the left. New on the right. US-MIld ascites. Significantly improved from
previous exam. )
*Critical Care Note
Total Time (30-74mins, 75-104mins- exclusive of procedures): Not Applicable
ED Attending Note
-
Portions of this chart may have been created with voice recognition software.� Occasional wrong word or��sound alike� substitutions may have occurred due to the inherent limitations of voice recognition software.
Discharge Plan
Departure
Patient Disposition: Admit
Date of Disposition: 05/01/24
Time of Disposition: 18:21
Admit to: Med/Surg
Presentation/result/management discussed w/ accepting MD/DO: Hospitalist
Patient with high blood pressure during this ER visit?: No
Condition: Good
Covid-19: Not Applicable
Discharge Problem:
Abdominal ascites, Hyponatremia, Weakness
Interventions
Interventions:
*Risk Screen - Suicide Last Done: 05/01/24 12:40
*General Assessment Last Done: 05/01/24 12:40
*Neglect/Abuse Screening Last Done: 05/01/24 12:40
ED- Fall Risk Assessment Last Done: 05/01/24 18:41
*ED COVID-19 Vaccine History Last Done: 05/01/24 12:40
OG-Qxkwtx-Xrbddsanxp Assessment Last Done: 05/01/24 18:41
[2024-05-01 18:37] VITALS: BMI 23.4
--- NOTE | 2024-05-01 18:41 | HPS.HSE ---
Addendum entered and electronically signed by Rekha Rosales MD 05/01/24 18:50:
Continue claritin for neupogen bone pain.
Original Note:
Family Physician
-
Family Physician: NOT KNOW UNKNOWN - PT DOES
Chief Complaint
-
abdominal pain
History of Present Illness
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
She had a paracentesis 6 days ago. She feels weak, a little shortness of breath with nausea and abdominal pain and dizziness. She had chemotherapy this past Wednesday and had a granulocyte stimulating factor injection as well today. She denies
fevers or chills, chest pain, vomiting, diarrhea, headache, urinary symptoms. She had a small bowel movement today.
Patient received chemotherapy for the first time last week and has been having nausea
Patient was recently admitted from 04/20 to 04/27 for abdominal pain and ascites. She underwent paracentesis twice and treated with 7-day course of antibiotics for possible SBP versus peritoneal carcinomatosis. Peritoneal fluid cultures were
negative. She was found to have GABY with severe right hydronephrosis on CT scan. Losartan was stopped. Creatinine improved with IV fluids and eventual Lasix. She was followed by nephrology. She also had hyponatremia which improved with Samsca.
Medical History
Past Medical History
Past Medical History: Reports Other ( metastatic endometrial cancer status post prior hysterectomy, peritoneal carcinomatosis hypertension, hypercholesteremia, constipation, presumed CKD 4, normocytic anemia )
Past Surgical History: Reports None
Social History
Tobacco: Non-smoker
Alcohol: None
Drug: None
Family History
Family History: Not pertinent
Allergies / Home Medications
Allergies reflects when Allergies were last updated in [facility].
Home Medications with original date entered in [facility]
Allergy/Medication List:
Allergies
Allergy/AdvReac Type Severity Reaction Status Date / Time
cefaclor [From [facility]] Allergy Rash Verified 05/01/24 12:43
shrimp Allergy RASH-Does Verified 05/01/24 12:43
eat shrimp
Home Medications
acetaminophen 500 mg tablet (Tylenol Extra Strength) 1,000 mg PO QID Pain 04/09/24
carboxymethylcellulose sodium 1 % eye liquid gel drops 0 drp BOTH EYES DAILYPRN PRN dry eyes 04/09/24
ondansetron HCl 8 mg tablet 8 mg PO QIDPRN PRN nausea/vomiting 04/09/24
peg 400-propylene glycol (PF) 0.4 %-0.3 % eye drops in a dropperette (Systane (PF)) 1 drp BOTH EYES DAILYPRN PRN dry eyes 04/09/24
polyethylene glycol 3350 17 gram oral powder packet (HealthyLax) 17 g PO DAILYPRN PRN constipation #30 ea 04/14/24
bisacodyl 5 mg tablet,delayed release (Dulcolax (bisacodyl)) 15 mg PO HSPRN PRN constipation 04/20/24
lidocaine-prilocaine 2.5 %-2.5 % topical cream 1 applic topical DIRECTED port access 04/20/24
oxycodone 5 mg tablet 5 mg PO Q4HPRN PRN mod sev pain #14 tabs 04/23/24
Review of Systems
-
History Source: Patient
A 12 point ROS was completed and negative except as noted: Yes
Constitutional: Reports No Symptoms
EENT: Reports No Symptoms
Respiratory: Reports See HPI
Cardiac: Reports No Symptoms
Abdomen/GI: Reports See HPI
: Reports No Symptoms
Musculoskeletal: Reports No Symptoms
Skin: Reports No Symptoms
Neurological: Reports No Symptoms
Endocrine: Reports No Symptoms
Hematologic/Lymphatic: Reports No Symptoms
Psych: Reports No Symptoms
Physical Exam
Vital Signs
Vital Signs
Temp Pulse Resp BP Pulse Ox
97.7 F 99 16 117/44 97
05/01/24 15:27 05/01/24 15:27 05/01/24 15:27 05/01/24 15:27 05/01/24 15:27
Physical Exam
General: Well Developed, Well Nourished and No Apparent Distress
HEENT: NormoCephalic, Moist mucous membranes and Atraumatic
Respiratory: Clear
Cardiac: S1/S2 and Regular Rhythm; No Murmur or Rub
GI: Soft, Non Distended, Normal Bowel Sounds and Distended; No Organomegaly
Rectal: Deferred by Provider
Musculoskeletal: No Clubbing, No Cyanosis and No Edema
Skin: No Rash
Neuro: Nonfocal/grossly intact
Laboratory Results
-
05/01/24 13:02
05/01/24 13:02
Laboratory Results
PT 12.9 Sec (11.4-14.6) 05/01/24 13:02
INR 0.99 05/01/24 13:02
APTT 26.5 Sec (23.4-35.0) 05/01/24 13:02
Total Bilirubin 0.4 mg/dl (0.2-1.3) 05/01/24 13:02
AST 142 U/L (14-36) H 05/01/24 13:02
ALT 23 U/L (0-35) 05/01/24 13:02
Alkaline Phosphatase 191 U/L (38-126) H 05/01/24 13:02
Data Reviewed
-
Lab Data: Labs Reviewed by me
Old Records: Reviewed
Impression/Plan
-
IMPRESSION:
PLAN:
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
-Abdominal ultrasound pending
-IR consulted for paracentesis
-Ordered paracentesis studies
-Empiric ceftriaxone for SBP coverage
-Oncology recommended against peritoneal drainage catheter during last admission
# Hyperkalemia secondary to constipation
-Treat constipation as below
# History of metastatic endometrial carcinoma status post prior hysterectomy on chemotherapy
-Status post pembrolizumab for a year progression of disease, more recently treated with hormonal therapy which was ineffective
-Patient due to start chemotherapy soon with Taxol/carboplatin with [facility]
-Continue oxycodone
#Constipation exacerbated by oxycodone
-Continue MiraLAX
-Lactulose if no bowel movements
# CKD stage IV
-Creatinine stable at 1.7
-will need albumin after para
# Chronic hyponatremia secondary to decreased solute intake/SIADH of malignancy
-Sodium stable at 129
-Fluid restriction 40 ounces
-Will require Samsca if worsening
Chronic thrombocytosis
Essential hypertension
Hyperlipidemia
-Continue statin
Normocytic anemia
-Hemoglobin stable
DNR/DNI
DVT prophylaxis�heparin
Regular diet
[2024-05-01 18:42] VITALS: BP 134/53
[2024-05-01 19:00] VITALS: BP 120/49
[2024-05-01] MEDS: STERILE WATER FOR INJECTION 10 ML IV (19:36)
[2024-05-01] MEDS: MORPHINE SULFATE 2 MG IV (19:37)
[2024-05-01] MEDS: ROCEPHIN 1000 MG IV (19:37)
[2024-05-01] MEDS: CATHFLO/ACTIVASE 2 MG IV (20:08)
--- NOTE | 2024-05-01 20:11 | VATNOTE ---
cathflo given now thru inner lumen of dual lumen port due to no blood return when accessed.
--- NOTE | 2024-05-01 20:15 | VATNOTE ---
both lumens attempted earlier to access; no blood return from either lumen. will only cathflo inner lumen at this time.
--- NOTE | 2024-05-01 21:18 | VATNOTE ---
+Blood return now poast 1 hr cathflo dwell. Flushed now with 500 units heparin.
[2024-05-01] MEDS: HEPARIN 5000 UNITS SC (22:02)
[2024-05-02 01:00] VITALS: BP 110/49
[2024-05-02 05:12] LABS: % Basophils 0.2 % (0-2); % Immature Granulocytes 4.4 % (0-0.5); % Monocytes 0.2 % (1.7-9.3); % Neutrophils 93.2 % (42.2-75.2); Absolute Basophils 0.1 10^3/uL (0-0.2); Absolute Immature Granulocytes 1.4 10^3/uL (0-0.05); Absolute Lymphocytes 0.6 10^3/uL (1.2-3.4); Absolute Monocytes 0.1 10^3/uL (0.1-0.6); Absolute Neutrophils 28.9 10^3/uL (1.4-6.5); Hematocrit 26.4 % (37.0-47.0); Hemoglobin 8.4 g/dL (12.0-16.0); Mean Corp Hgb Conc. 31.8 g/dL (33.0-37.0); Mean Corpuscular Hgb 28.9 pg (27.0-31.0); Mean Corpuscular Volume 90.7 fL (81.0-99.0); Mean Platelet Volume 9.3 fL (7.4-10.4); Nucleated Red Blood Cells % 0 %; Platelet Count 448 10^3/uL (130-400); Red Blood Cell Count 2.91 10^6/uL (4.20-5.40); Red Cell Dist. Width 13.8 % (11.5-14.5)
[2024-05-02 05:38] LABS: ALT (SGPT) 18 U/L (0-35); AST (SGOT) 126 U/L (14-36); Albumin 1.9 g/dl (3.5-5.0); Alkaline Phosphatase 144 U/L (38-126); Blood Urea Nitrogen 70 mg/dl (7-17); Calcium 7.5 mg/dl (8.4-10.2); Carbon Dioxide 27 mmol/L (22-30); Chloride 97 mmol/L (98-107); Estimated Creatinine Clearance 21 ml/min; Glucose 107 mg/dl (70-99); Potassium 4.8 mmol/L (3.5-5.1); Sodium 129 mmol/L (135-145); Total Bilirubin 0.2 mg/dl (0.2-1.3); Total Protein 4.3 g/dl (6.3-8.2); eGFR 29.39
--- NOTE | 2024-05-02 08:11 | PTCARENOTE ---
Patient transported by PCT to IR for paracentesis. Patient left room before assessment or admission questions could be completed.
[2024-05-02 08:15] VITALS: BP 137/51; BP_SYST 88
[2024-05-02 08:54] VITALS: BP 129/49; BP_SYST 90
[2024-05-02 09:35] LABS: Body Fluid Albumin 1.2 g/dl; Body Fluid Amylase 33 U/L; Body Fluid Protein 2.8 g/dl
[2024-05-02 10:34] LABS: Body Fluid Mononuclear 70.7 %; Body Fluid Polymorphonuclear 29.3 %; Body Fluid WBC 1927 /CUMM
[2024-05-02 10:56] LABS: Body Fluid LDH 5517 U/L
[2024-05-02] MEDS: CLARITIN 10 MG PO (11:02)
[2024-05-02] MEDS: HEPARIN 5000 UNITS SC ×2 (11:03→19:27)
--- NOTE | 2024-05-02 11:45 | W.PN.HOSP.TC ---
Today's Communication/Plan
-
DC planning
Assessment / Plan
Assessment / Plan
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
-Status post a paracentesis of 1.1 L.
-Cell count are high and neutrophils are more than 250. Last 2 peritoneal taps also was cellular but culture negative. I suspect the elevated cell count and ascitic fluid may be is just secondary to cancer. Currently on ceftriaxone which I would
DC if the cultures are negative.
-Oncology recommended against peritoneal drainage catheter during last admission-Will explore
#Chronic cancer pain-predominant site abdomen. On oxycodone every 4 hours apparently at home. Will try a fentanyl patch and follow.
# History of metastatic endometrial carcinoma status post prior hysterectomy on chemotherapy
-Status post pembrolizumab for a year progression of disease, more recently treated with hormonal therapy which was ineffective
-Patient due to start chemotherapy soon with Taxol/carboplatin with [facility]
-Continue oxycodone
#Constipation exacerbated by oxycodone
-Continue MiraLAX. Add Colace.
-Lactulose if no bowel movements
# CKD stage IV
-Creatinine stable at 1.7
# Chronic hyponatremia secondary to decreased solute intake/SIADH of malignancy
-Sodium stable at 129
-Fluid restriction 40 ounces
Chronic thrombocytosis
Essential hypertension
Hyperlipidemia
-Continue statin
Normocytic anemia
-Hemoglobin stable
DNR/DNI
DVT prophylaxis�heparin
Regular diet
Add fentanyl. Follow culture data.
DC in a.m. if cultures negative, patient tolerating diet and fentanyl patch.
Anticipated Discharge: Within 24 hours
Subjective/Interval History
-
Date of Service: May 02, 2024
Had paracentesis done today. Feeling bit better. But remains in abdominal pain.
Abdominal pain is chronic. She is requiring oxycodone every 4 hours at home. She was suggested a fentanyl patch in the past.
No fever or chills. This morning feeling little nauseous. She tolerated some breakfast.
Objective Data
-
Labs:
Laboratory Results
05/02/24
04:47
WBC 31.0 H
Hgb 8.4 L
Hct 26.4 L
Plt Count 448 H D
Sodium 129 L
Potassium 4.8
Chloride 97 L
Carbon Dioxide 27
BUN 70 H
Creatinine 1.7 H
Glucose 107 H
Calcium 7.5 L
Total Bilirubin 0.2
AST 126 H
ALT 18
Alkaline Phosphatase 144 H
Vital Signs:
Vital Signs
Temp Pulse Resp BP Pulse Ox
98 F 90 14 129/49 94
05/02/24 08:15 05/02/24 08:54 05/02/24 08:54 05/02/24 08:54 05/02/24 08:54
Review of Systems
-
Respiratory: Denies Trouble Breathing
Cardiac: Denies Chest Pain
Neuro: Denies Dizzy
Physical Exam
-
General: No Apparent Distress
HEENT: Moist Mucous Membranes
Respiratory: Clear to Auscultation
Cardiac: Regular Rhythm and S1/S2
GI: Soft, Normal Bowel Sounds, Tender (discomfort in all quadrants) and Distended (mild)
Neuro: AO x 3
Psych: Calm; Negative Confused
Data Reviewed
-
Labs: Labs Reviewed by me
[2024-05-02 11:50] LABS: Body Fluid Second Tech CMB
[2024-05-02] MEDS: ROXICODONE 5 MG PO ×4 (12:17→23:52)
[2024-05-02] MEDS: MIRALAX 17 GRAMS PO (12:17)
[2024-05-02] MEDS: COLACE 100 MG PO ×2 (12:18→19:26)
[2024-05-02] MEDS: ZOFRAN 8 MG PO (14:45)
[2024-05-02 16:45] VITALS: BP 135/59; BMI 22.9
[2024-05-02] MEDS: ROXICODONE PO (16:56)
[2024-05-02] MEDS: ROCEPHIN 1000 MG IV (19:26)
[2024-05-02] MEDS: FLUSH (NSS) 1 FLUSH IV (19:27)
[2024-05-02] MEDS: STERILE WATER FOR INJECTION 10 ML IV (19:27)
[2024-05-02 23:44] VITALS: BP 127/54
[2024-05-03] MEDS: ROXICODONE 5 MG PO ×4 (05:09→21:13)
[2024-05-03 05:29] LABS: Blood Urea Nitrogen 60 mg/dl (7-17); Calcium 7.6 mg/dl (8.4-10.2); Carbon Dioxide 30 mmol/L (22-30); Chloride 96 mmol/L (98-107); Estimated Creatinine Clearance 24 ml/min; Glucose 131 mg/dl (70-99); Potassium 4.3 mmol/L (3.5-5.1); Sodium 129 mmol/L (135-145); eGFR 34.15
[2024-05-03 07:04] VITALS: BP 131/59
[2024-05-03 08:04] VITALS: BP 131/59
[2024-05-03] MEDS: COLACE 100 MG PO ×2 (08:47→20:59)
[2024-05-03] MEDS: MIRALAX 17 GRAMS PO (08:47)
[2024-05-03] MEDS: HEPARIN 5000 UNITS SC ×2 (08:47→20:58)
[2024-05-03] MEDS: ZOFRAN 8 MG PO (10:18)
--- NOTE | 2024-05-03 13:34 | VNURNOTE ---
Attempted call to patient's room, no answer. This SN reached out to patient's spouse, Jason. Spoke with him over the phone. He stated 'she's not doing well.' Emotional support provided. Patient's spouse is agreeable to resume [facility] if the plan
is to return home. [facility] referral in [facility]. Will follow hospital course.
--- NOTE | 2024-05-03 13:52 | W.PN.HOSP.TC ---
Today's Communication/Plan
-
Consult onc
DC Planning
Assessment / Plan
Assessment / Plan
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
-Status post a paracentesis of 1.1 L.
-Cell count are high and neutrophils are more than 250. Last 2 peritoneal taps also was cellular but culture negative. I suspect the elevated cell count and ascitic fluid may be is just secondary to cancer. Currently on ceftriaxone which I would
DC as cultures are negative again on this occasion.
-Oncology recommended against peritoneal drainage catheter during last admission which probably is prudent. Consult Onc.
#Chronic cancer pain-predominant site abdomen. On oxycodone every 4 hours apparently at home- made it schedule now. I see she used one break through and if it is the case will put her on Fentanyl patch. No sedation with emely oxycodone
# History of metastatic endometrial carcinoma status post prior hysterectomy on chemotherapy
-Status post pembrolizumab for a year progression of disease, more recently treated with hormonal therapy which was ineffective
-Patient due to start chemotherapy soon with Taxol/carboplatin with [facility]
-Continue oxycodone
#Constipation exacerbated by oxycodone
-Continue MiraLAX. Add Colace.
-Lactulose if no bowel movements
# CKD stage IV
-Creatinine stable at 1.7
# Chronic hyponatremia secondary to decreased solute intake/SIADH of malignancy
-Sodium stable at 129
-Fluid restriction 40 ounces
Chronic thrombocytosis
Essential hypertension
Hyperlipidemia
-Continue statin
Normocytic anemia
-Hemoglobin stable
DNR/DNI
DVT prophylaxis�heparin
Regular diet
Once Onc see and recommends on peritoneal catheter and GOC we will plan on DC
Also consider fentanyl patch if she is requiring breakthro pain
Anticipated Discharge: Within 24 hours
Subjective/Interval History
-
Date of Service: May 03, 2024
Feeling nauseous today.
Abdominal pain improved. She has now [id number] scheduled oxycodone .
Not much appetite.
Objective Data
-
Labs:
Laboratory Results
05/03/24
04:43
Sodium 129 L
Potassium 4.3
Chloride 96 L
Carbon Dioxide 30
BUN 60 H
Creatinine 1.5 H
Glucose 131 H
Calcium 7.6 L
Vital Signs:
Vital Signs
Temp Pulse Resp BP Pulse Ox
98 F 97 16 131/59 96
05/03/24 07:04 05/03/24 07:04 05/03/24 07:04 05/03/24 07:04 05/03/24 07:04
I&O
05/02/24 05/03/24 05/04/24
06:59 06:59 06:59
Intake Total 480 / 480
Balance 480 / 480
Review of Systems
-
EENT: Denies Sore Throat
Respiratory: Denies Trouble Breathing
Cardiac: Denies Chest Pain
Abdomen/GI: Reports Abdominal Pain and Nausea; Denies Vomiting or Constipated
Neuro: Denies Dizzy
Physical Exam
-
General: No Apparent Distress
HEENT: Moist Mucous Membranes
Respiratory: Clear to Auscultation
Cardiac: Regular Rhythm and S1/S2
GI: Soft, Nondistended, Normal Bowel Sounds and Tender (mild in general but no rebound or guarding)
Neuro: AO x 3
Psych: Calm
Data Reviewed
-
Labs: Labs Reviewed by me
[2024-05-03] MEDS: COMPAZINE 10 MG IV (13:57)
--- NOTE | 2024-05-03 14:30 | CON.ONC ---
Impression
Impression
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
FTT/PS 4
DNR
Plan
Plan
Supportive care and pain management.
Updated daughter Amanda regarding prognosis. Tried to reach Andrez - got VM. Left message.
Confirmed she is DNR. Hospice appropriate if her condition does not improve.
For now, she does not wish to sign on to hospice yet.
Unless PS improves, not candidate for further chemotherapy based on PS = 4
Patient History
History of Present Illness
CC: abdominal pain
HPI: 83-year-old female with MSI-H metastatic endometrial cancer status post prior hysterectomy presenting for recurrent ascites and distended abdomen. She gets frequent (<1 week) paracentesis. Received C#1 salvage carbo + Taxol 04/28 with Neulasta
05/01. + weakness and abd pain. Some nausea. She is DNR.
Past-Medical/Surgical History
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
PSH: PAOLO/BSO
Social History
Tobacco: Non-smoker
Alcohol: None
Patient Medication
�Medication �Instructions �Recorded �Confirmed �Last Taken �Type
acetaminophen 500 mg tablet 1,000 mg PO QIDPRN PRN mild pain 04/09/24 05/01/24 04/20/24 History
(Tylenol Extra Strength)
carboxymethylcellulose sodium 1 % 2 drp BOTH EYES DAILYPRN PRN dry 04/09/24 05/01/24 4 Days Ago History
eye liquid gel drops eyes ~04/05/24
ondansetron HCl 8 mg tablet 8 mg PO QIDPRN PRN nausea/vomiting 04/09/24 05/01/24 2 Days Ago History
~04/18/24
peg 400-propylene glycol (PF) 0.4 1 drp BOTH EYES DAILYPRN PRN dry 04/09/24 05/01/24 04/08/24 History
%-0.3 % eye drops in a dropperette eyes
(Systane (PF))
polyethylene glycol 3350 17 gram 17 g PO DAILYPRN PRN constipation 04/14/24 05/01/24 Unknown Rx
oral powder packet (HealthyLax) #30 ea
bisacodyl 5 mg tablet,delayed 15 mg PO HSPRN PRN constipation 04/20/24 05/01/24 Unknown History
release (Dulcolax (bisacodyl))
lidocaine-prilocaine 2.5 %-2.5 % 1 applic topical DAILYPRN PRN port 04/20/24 05/01/24 04/20/24 History
topical cream access
oxycodone 5 mg tablet 5 mg PO Q4HPRN PRN mod sev pain 04/23/24 05/01/24 Unknown Rx
#14 tabs
Active Medications
Generic Name Dose Route Start Last Admin
Trade Name Freq PRN Reason Stop Dose Admin
Acetaminophen 1,000 mg 05/01/24 22:50
Acetaminophen 500 Mg Tablet PO 05/29/24 22:49
QIDPRN PRN
mild ball
Artificial Tears 1 drops 05/01/24 23:12
Artificial Tears Pf (Refresh) 10 Drop Droperette BOTH EYES 05/29/24 23:11
DAILYPRN PRN
dry eyes
Bisacodyl 15 mg 05/01/24 22:50
Bisacodyl 5 Mg Enteric Coated Tablet PO 05/29/24 22:49
HSPRN PRN
constipation
Carboxymethylcellulose Sodium 2 drops 05/01/24 23:12
Carboxymethylcellulose Ophth Gel (Celluvisc) Droperette BOTH EYES 05/29/24 23:11
DAILYPRN PRN
dry eyes
Ceftriaxone Sodium 1,000 mg 05/01/24 20:00 05/02/24 19:26
Ceftriaxone 1000 Mg / 10 Ml Vial IV 1,000 mg
Q24H SILVERIO Administration
Docusate Sodium 100 mg 05/02/24 12:00 05/03/24 08:47
Docusate Sodium 100 Mg Capsule PO 05/30/24 11:59 100 mg
BID SILVERIO Administration
Heparin Sodium 5,000 units 05/01/24 20:26 05/03/24 08:47
Heparin 5,000 Units/Ml 1 Ml Vial SC 05/29/24 20:25 5,000 units
Q12 SILVERIO Administration
Heparin Sodium (Porcine) 500 unit 05/01/24 21:26 05/02/24 19:28
Heparin Flush Pf (100 Unit/Ml) 5 Ml Syringe IV 05/29/24 21:25 500 unit
PRN PRN Administration
SC PORT FLUSH
Lidocaine/Prilocaine 0 gram 05/01/24 22:50
Lidocaine 2.5%/Prilocaine 2.5% (Cream) 5 Gram Tube TOPICAL 05/29/24 22:49
DAILYPRN PRN
port access
Loratadine 10 mg 05/02/24 08:00 05/02/24 11:02
Loratadine 10 Mg Tablet PO 05/30/24 07:59 10 mg
Q48H SILVERIO Administration
Ondansetron HCl 8 mg 05/01/24 23:11 05/03/24 10:18
Ondansetron 4 Mg Tablet PO 05/29/24 23:10 8 mg
QIDPRN PRN Administration
nausea/vomiting
Oxycodone HCl 5 mg 05/01/24 22:50 05/03/24 08:52
Oxycodone 5 Mg Regular Release Tablet PO 05/15/24 22:49 5 mg
Q4HPRN PRN Administration
mod sev pain
Oxycodone HCl 5 mg 05/02/24 18:00 05/03/24 12:27
Oxycodone 5 Mg Regular Release Tablet PO 05/16/24 17:59 5 mg
Q6 SILVERIO Administration
Polyethylene Glycol 17 grams 05/01/24 22:50
Polyethylene Glycol Powder 17 Grams Packet PO 05/29/24 22:49
DAILYPRN PRN
constipation
Polyethylene Glycol 17 grams 05/02/24 12:00 05/03/24 08:47
Polyethylene Glycol Powder 17 Grams Packet PO 05/30/24 11:59 17 grams
DAILY SILVERIO Administration
Sodium Chloride 0 flush 05/01/24 21:00 05/02/24 19:27
Sodium Chloride 0.9% (Flush) Syringe IV 05/29/24 20:59 1 flush
PER PROTOCOL SILVERIO Administration
Sterile Water 10 ml 05/01/24 20:00 05/02/24 19:27
Sterile Water For Injection 10 Ml Vial IV 05/29/24 19:59 10 ml
Q24H SILVERIO Administration
Physical Exam
-
General: Comfortable, Appears Chronically Ill and Cachetic
HEENT: Negative Jaundice
Cardiology: S1 and S2
Pulmonary: Clear
GI: Distended and Fluid Wave
Extremities: No C/C/E
Neurology: Non Focal
Psych: Calm
Labs
Lab Results
WBC 31.0 10^3/uL (4.8-10.8) H 05/02/24 04:47
RBC 2.91 10^6/uL (4.20-5.40) L 05/02/24 04:47
Hgb 8.4 g/dL (12.0-16.0) L 05/02/24 04:47
Hct 26.4 % (37.0-47.0) L 05/02/24 04:47
MCV 90.7 fL (81.0-99.0) 05/02/24 04:47
MCH 28.9 pg (27.0-31.0) 05/02/24 04:47
MCHC 31.8 g/dL (33.0-37.0) L 05/02/24 04:47
RDW 13.8 % (11.5-14.5) 05/02/24 04:47
Plt Count 448 10^3/uL (130-400) H D 05/02/24 04:47
MPV 9.3 fL (7.4-10.4) 05/02/24 04:47
Abs Immat Gran (auto) 1.4 10^3/uL (0-0.05) H 05/02/24 04:47
Absolute Neuts (auto) 28.9 10^3/uL (1.4-6.5) H 05/02/24 04:47
Absolute Lymphs (auto) 0.6 10^3/uL (1.2-3.4) L 05/02/24 04:47
Absolute Monos (auto) 0.1 10^3/uL (0.1-0.6) 05/02/24 04:47
Absolute Eos (auto) 0.0 10^3/uL (0-0.7) 05/02/24 04:47
Absolute Basos (auto) 0.1 10^3/uL (0-0.2) 05/02/24 04:47
Immature Gran % 4.4 % (0-0.5) H 05/02/24 04:47
Neutrophils % 93.2 % (42.2-75.2) H 05/02/24 04:47
Lymphocytes % 2.0 % (20.5-51.1) L 05/02/24 04:47
Monocytes % 0.2 % (1.7-9.3) L 05/02/24 04:47
Eosinophils % 0.0 % (0-6) 05/02/24 04:47
Basophils % 0.2 % (0-2) 05/02/24 04:47
Creatinine 1.5 mg/dL (0.6-1.0) H 05/03/24 04:43
Vital Signs
Vital Signs
Temp Pulse Resp BP Pulse Ox
98 F 97 16 131/59 96
05/03/24 07:04 05/03/24 07:04 05/03/24 07:04 05/03/24 07:04 05/03/24 07:04
[2024-05-03 15:15] VITALS: BP 136/56
[2024-05-03 15:30] VITALS: BP 117/59; BP 145/60; PULSE 101; O2SAT 95
--- NOTE | 2024-05-03 15:58 | CM ---
Alejandra is doing poorly, not eligible for additional chemo due to Performance Status, but not currently agreeable to hospice. Provided information about palliative care, as daughter inquired, stating it is focused on symptom management rather than
curative care. Family unclear about prognosis and hoping to speak with . TT to Dr. Garcia and discussed with RN.
--- NOTE | 2024-05-03 16:26 | W.DS.TRANS ---
DC Summary - Technology Instructor
-
Discharge Instructions:
Discharge Diagnosis/Procedures patient with peritoneal carcinomatosis/
endometrial cancer with recurrent ascites
accumulation
Diet Regular
Activity As tolerated
Driving Restrictions As prior to admission
Instructions:
Stand-Alone Forms:
Changes to Home Medications: No
Discharge Medications:
DC Medications w/original date entered in [employer]
acetaminophen 500 mg tablet (Tylenol Extra Strength) 1,000 mg PO QIDPRN PRN mild pain 04/09/24
carboxymethylcellulose sodium 1 % eye liquid gel drops 2 drp BOTH EYES DAILYPRN PRN dry eyes 04/09/24
ondansetron HCl 8 mg tablet 8 mg PO QIDPRN PRN nausea/vomiting 04/09/24
peg 400-propylene glycol (PF) 0.4 %-0.3 % eye drops in a dropperette (Systane (PF)) 1 drp BOTH EYES DAILYPRN PRN dry eyes 04/09/24
polyethylene glycol 3350 17 gram oral powder packet (HealthyLax) 17 g PO DAILYPRN PRN constipation #30 ea 04/14/24
bisacodyl 5 mg tablet,delayed release (Dulcolax (bisacodyl)) 15 mg PO HSPRN PRN constipation 04/20/24
lidocaine-prilocaine 2.5 %-2.5 % topical cream 1 applic topical DAILYPRN PRN port access 04/20/24
oxycodone 5 mg tablet 5 mg PO Q4HPRN PRN mod sev pain #14 tabs 04/23/24
Home Medication Changes
Pending Results: No
[2024-05-03] MEDS: TYLENOL 1000 MG PO (16:52)
--- NOTE | 2024-05-03 17:30 | PTCARENOTE ---
Addendum entered by Can Bender RN 05/03/24 17:58:
Pt. label placed on bottle.
Original Note:
Pt. brought in pt. liquid medical marijuana drops. Pharmacy made aware and instructed this nurse to lock them in the med room pt. medication drawer. Done as instructed.
[2024-05-03] MEDS: STERILE WATER FOR INJECTION 10 ML IV (20:59)
[2024-05-03] MEDS: ROCEPHIN 1000 MG IV (20:59)
[2024-05-03 23:52] VITALS: BP 120/54
[2024-05-04 07:21] VITALS: BP 129/51
[2024-05-04 08:21] VITALS: BP 129/51
[2024-05-04] MEDS: MIRALAX 17 GRAMS PO (08:46)
[2024-05-04] MEDS: COLACE 100 MG PO (08:46)
[2024-05-04] MEDS: CLARITIN 10 MG PO (08:46)
[2024-05-04] MEDS: HEPARIN 5000 UNITS SC (08:46)
--- NOTE | 2024-05-04 10:16 | W.DS.TRANS ---
DC Summary - Web Services Developer
-
Discharge Instructions:
Discharge Diagnosis/Procedures patient with peritoneal carcinomatosis/
endometrial cancer with recurrent ascites
accumulation
Diet Regular
Activity As tolerated
Driving Restrictions As prior to admission
Instructions:
Stand-Alone Forms:
Changes to Home Medications: No
Discharge Medications:
DC Medications w/original date entered in [employer]
acetaminophen 500 mg tablet (Tylenol Extra Strength) 1,000 mg PO QIDPRN PRN mild pain 04/09/24
carboxymethylcellulose sodium 1 % eye liquid gel drops 2 drp BOTH EYES DAILYPRN PRN dry eyes 04/09/24
ondansetron HCl 8 mg tablet 8 mg PO QIDPRN PRN nausea/vomiting 04/09/24
peg 400-propylene glycol (PF) 0.4 %-0.3 % eye drops in a dropperette (Systane (PF)) 1 drp BOTH EYES DAILYPRN PRN dry eyes 04/09/24
polyethylene glycol 3350 17 gram oral powder packet (HealthyLax) 17 g PO DAILYPRN PRN constipation #30 ea 04/14/24
bisacodyl 5 mg tablet,delayed release (Dulcolax (bisacodyl)) 15 mg PO HSPRN PRN constipation 04/20/24
lidocaine-prilocaine 2.5 %-2.5 % topical cream 1 applic topical DAILYPRN PRN port access 04/20/24
oxycodone 5 mg tablet 5 mg PO Q4HPRN PRN mod sev pain #14 tabs 04/23/24
Medical Marijuana 100 mg PO PRN PRN Pain 05/03/24
Home Medication Changes
Pending Results: No
[2024-05-04 11:24] VITALS: BP 133/62; PULSE 99; O2SAT 96
[2024-05-04 11:30] VITALS: BP 133/62
--- NOTE | 2024-05-04 11:34 | CM ---
Alejandra was discharged to home this morning. [facility] services will resume; Call Or Contact Centre Operator notified of discharge.
Plan: Discharge home with resumption of [facility]. drove her home.
--- NOTE | 2024-05-04 11:50 | W.DCSUMMARY ---
Discharge Summary
Discharge Data
Date of Admission: 05/01/24
Date of Discharge: 05/04/24
-
Pending Results: No
Hospital Course
This is an 83-year-old patient with recurrent malignant ascites secondary to peritoneal carcinomatosis who presents with ongoing pain referred to the abdomen secondary cancer pain she had been on oxycodone every 4 hours apparently at home and has
been diagnosed with a history of metastatic endometrial carcinoma status post prior hysterectomy on chemotherapy which is ongoing. She has been more recently treated with hormonal therapy which has been ineffective. She is now due to start
chemotherapy with Taxol and carboplatin via [facility]. Her last paracentesis was 6 days ago she remains weak and a little short of breath with abdominal pain and dizziness on presentation she had a granulocyte stimulating factor on the date
of admission. She was admitted similarly on 20 April to 27 April with a presentation abdominal pain and ascites then. Peritoneal fold fluid cultures were negative at that time. With subsequent paracentesis is now suspected that the mild elevation and
cell count are related to her underlying cancer and no signs of infection empiric course of ceftriaxone started on admission was discontinued for her chronic cancer pain she was placed on [id number] oxycodone which initially did offer some
relief but also ongoing nausea. Oncology service Dr. Garcia met with the patient and explained prognosis and she was confirmed again DNR status and hospice appropriate if her condition should not improve. They do not want to pursue hospice option
as yet unless her performance status improved not a candidate for further chemotherapy per oncology her performance status was measured at 4. Initial consideration for a fentanyl patch was aborted due to the patient's and now able to tolerate
[id number] oxycodone which was recommended at discharge and she has a supply at home which is self renewable. No further decision making was made on a peritoneal catheter for drainage on a chronic basis/after postponing her discharge on 03 May
due to some nausea the patient was considered stable for discharge on 04 May with plan follow-up with oncology
Discharge Plan
-
Patient Disposition: Home with Home Care
Discharge Diagnosis/Procedures: patient with peritoneal carcinomatosis/endometrial cancer with recurrent ascites accumulation
Diet: Regular
Activity: As tolerated
Driving Restrictions: As prior to admission
Referrals:
UNKNOWN - PT DOES,NOT KNOW [Family Provider] -
Prescriptions:
Continued
ondansetron HCl 8 mg Tablet
8 mg PO QIDPRN PRN (Reason: nausea/vomiting)
acetaminophen [Tylenol Extra Strength] 500 mg Tablet
1,000 mg PO QIDPRN PRN (Reason: mild pain)
carboxymethylcellulose sodium 1 % Drops, Liquid Gel
2 drp BOTH EYES DAILYPRN PRN (Reason: dry eyes)
Patient Comments:
Systane (PF) 0.4-0.3 % Dropperette
1 drp BOTH EYES DAILYPRN PRN (Reason: dry eyes)
polyethylene glycol 3350 [HealthyLax] 17 gram Powder In Packet
17 g PO DAILYPRN PRN (Reason: constipation) Qty: 30 0RF
lidocaine-prilocaine 2.5-2.5 % Cream
1 applic TOPICAL DAILYPRN PRN (Reason: port access)
Patient Comments:
04/20/2024, used to access port for chemo treatment.
bisacodyl [Dulcolax (bisacodyl)] 5 mg Tablet,Delayed Release (Dr/Ec)
15 mg PO HSPRN PRN (Reason: constipation)
oxycodone 5 mg Tablet
5 mg PO Q4HPRN PRN (Reason: mod sev pain) Qty: 14 0RF
Patient Comments:
patient picker box operator on 04/23/24
No Action
Medical Marijuana 200 mg drops
100 mg PO PRN PRN (Reason: Pain)
Discharge Orders:
Discharge Patient (As Directed); Ordered 05/04/24
Ordered By: Zachary Tan
Discharge Date and Time
Discharge Date/Time: 05/04/24 11:44
Print Language: GEORGIAN
== END 2024-05-04 11:44 | disposition home health service (06) | DRG 754 ==
LOC: 4 EAST ACU 20:12
PROVIDERS: Emergency Medicine; Internal Medicine; Radiology Vascular & Interventional Radiology; ADMITTING PHYSICIAN Hospitalist; ATTENDING PHYSICIAN Internal Medicine; CONSULT PHYSICIAN Internal Medicine Hematology & Oncology; EMERGENCY PHYSICIAN Emergency Medicine
PROC: 0W9G3ZZ Drainage of Peritoneal Cavity, Percutaneous Approach (ICD-10-PCS; 2024-05-02)
DX: C54.1 Malignant neoplasm of endometrium (principal); K65.2 Spontaneous bacterial peritonitis; C78.6 Secondary malignant neoplasm of retroperitoneum and peritoneum; R18.0 Malignant ascites; E22.2 Syndrome of inappropriate secretion of antidiuretic hormone; C79.89 Secondary malignant neoplasm of other specified sites; N18.4 Chronic kidney disease, stage 4 (severe); Z66 Do not resuscitate; E87.5 Hyperkalemia; R62.7 Adult failure to thrive; I12.9 Hypertensive chronic kidney disease with stage 1 through stage 4 chronic kidney disease, or unspecified chronic kidney disease; K59.00 Constipation, unspecified; E78.00 Pure hypercholesterolemia, unspecified; D64.9 Anemia, unspecified; D75.839 Thrombocytosis, unspecified
CPT/HCPCS: 49083; 71046; 76705; 80048; 80053; 82042; 82150; 83615; 84157; 85025; 85610; 85730; 86850; 86900; 86901; 87015; 87070; 87205; 89051; 97116; 97162; 97166; 97530; 97535; 99285; J2997

== ENCOUNTER → 2024-05-08 09:19 | Outpatient (REF) | payer OTHER, SELFPAY ==
[2024-05-08 09:35] VITALS: BP 130/49; BP_SYST 96
[2024-05-08 10:06] VITALS: BP 112/41; BP_SYST 92
[2024-05-08 10:15] VITALS: BP 112/41
[2024-05-08 10:46] LABS: Body Fluid Mononuclear 84.4 %; Body Fluid Polymorphonuclear 15.6 %; Body Fluid WBC 848 /CUMM
[2024-05-08 11:09] LABS: Body Fluid Second Tech AMA
== END ==
LOC: RADI 09:19
PROVIDERS: ATTENDING PHYSICIAN Internal Medicine Hematology & Oncology; FAMILY PHYSICIAN Family Medicine
DX: C80.1 Malignant (primary) neoplasm, unspecified (principal); R18.0 Malignant ascites
CPT/HCPCS: 49083; 89051

== ENCOUNTER → 2024-05-15 09:43 | Outpatient (REF) | payer OTHER, SELFPAY ==
[2024-05-15 10:01] VITALS: BP 122/45; BP_SYST 84
[2024-05-15 11:05] VITALS: BP 114/42
[2024-05-15 13:30] LABS: Body Fluid Mononuclear 84.5 %; Body Fluid Polymorphonuclear 15.5 %; Body Fluid WBC 426 /CUMM
[2024-05-15 13:35] LABS: Body Fluid Second Tech RLT
== END ==
LOC: RADI 09:43
PROVIDERS: ATTENDING PHYSICIAN Internal Medicine Hematology & Oncology; FAMILY PHYSICIAN Family Medicine
DX: R18.8 Other ascites (principal)
CPT/HCPCS: 49083; 89051

== ENCOUNTER → 2024-05-22 09:15 | Outpatient (REF) | payer OTHER, SELFPAY ==
[2024-05-22 09:25] VITALS: BP 139/63; BP_SYST 94
[2024-05-22 09:49] VITALS: BP 124/53; BP_SYST 88
[2024-05-22 11:16] LABS: Body Fluid Mononuclear 94.7 %; Body Fluid Polymorphonuclear 5.3 %; Body Fluid WBC 533 /CUMM
[2024-05-22 11:27] LABS: Body Fluid Second Tech EF
== END ==
LOC: RADI 09:15
PROVIDERS: ATTENDING PHYSICIAN Internal Medicine Hematology & Oncology; FAMILY PHYSICIAN Family Medicine
DX: C80.1 Malignant (primary) neoplasm, unspecified (principal); R18.0 Malignant ascites
CPT/HCPCS: 49083; 89051

== ENCOUNTER → 2024-05-29 09:14 | Outpatient (REF) | payer OTHER, SELFPAY ==
[2024-05-29 09:33] VITALS: BP 134/57; BP_SYST 104
== END ==
LOC: RADI 09:14
PROVIDERS: ATTENDING PHYSICIAN Internal Medicine Hematology & Oncology
DX: R18.8 Other ascites (principal); Z53.8 Procedure and treatment not carried out for other reasons
CPT/HCPCS: 76705

== ENCOUNTER → 2024-06-26 12:31 | Outpatient (REF) | payer OTHER, SELFPAY | LOC: RAD 12:31 | PROVIDERS: ATTENDING PHYSICIAN Internal Medicine Hematology & Oncology; FAMILY PHYSICIAN Family Medicine | DX: C54.1 Malignant neoplasm of endometrium (principal); R18.8 Other ascites; G89.3 Neoplasm related pain (acute) (chronic) | CPT/HCPCS: 71260; 74177; Q9967 ==

== ENCOUNTER → 2024-09-13 10:11 | Outpatient (REF) | payer OTHER, SELFPAY | LOC: HWRAD 10:11 | PROVIDERS: ATTENDING PHYSICIAN Internal Medicine Hematology & Oncology; FAMILY PHYSICIAN Family Medicine | DX: C54.1 Malignant neoplasm of endometrium (principal); R18.8 Other ascites; G89.3 Neoplasm related pain (acute) (chronic); E87.6 Hypokalemia; G62.0 Drug-induced polyneuropathy | CPT/HCPCS: 71260; 74177; Q9967 ==

== ENCOUNTER → 2024-11-08 13:59 | Outpatient (REF) | payer OTHER, SELFPAY ==
[2024-11-08 14:28] LABS: % Basophils 0.3 % (0-2); % Eosinophils 0.5 % (0-6); % Immature Granulocytes 0.1 % (0-0.5); % Monocytes 7.3 % (1.7-9.3); % Neutrophils 58.8 % (42.2-75.2); Absolute Eosinophils 0.1 10^3/uL (0-0.7); Absolute Lymphocytes 4.1 10^3/uL (1.2-3.4); Absolute Monocytes 0.9 10^3/uL (0.1-0.6); Absolute Neutrophils 7.2 10^3/uL (1.4-6.5); Hematocrit 31.3 % (37.0-47.0); Hemoglobin 10.2 g/dL (12.0-16.0); Mean Corp Hgb Conc. 32.6 g/dL (33.0-37.0); Mean Corpuscular Hgb 35.2 pg (27.0-31.0); Mean Corpuscular Volume 107.9 fL (81.0-99.0); Mean Platelet Volume 8.9 fL (7.4-10.4); Platelet Count 270 10^3/uL (130-400); Red Cell Dist. Width 14.9 % (11.5-14.5); White Blood Cell Count 12.3 10^3/uL (4.8-10.8)
[2024-11-08 15:16] LABS: ALT (SGPT) < 10 U/L (0-35); AST (SGOT) 21 U/L (14-36); Albumin 4.2 g/dl (3.5-5.0); Alkaline Phosphatase 79 U/L (38-126); Blood Urea Nitrogen 24 mg/dl (7-17); Calcium 9.5 mg/dl (8.4-10.2); Carbon Dioxide 25 mmol/L (22-30); Chloride 106 mmol/L (98-107); Glucose 106 mg/dl (70-99); Potassium 5.1 mmol/L (3.5-5.1); Sodium 142 mmol/L (135-145); Total Bilirubin 0.3 mg/dl (0.2-1.3); eGFR 49.55
== END ==
LOC: OIDL 13:59
PROVIDERS: ATTENDING PHYSICIAN Internal Medicine Hematology & Oncology
DX: C54.1 Malignant neoplasm of endometrium (principal); R18.8 Other ascites; G89.3 Neoplasm related pain (acute) (chronic); E87.6 Hypokalemia; G62.0 Drug-induced polyneuropathy
CPT/HCPCS: 80053; 85025

== ENCOUNTER → 2024-12-06 13:46 | Outpatient (REF) | payer OTHER, SELFPAY ==
[2024-12-06 11:02] LABS: % Basophils 0.3 % (0-2); % Eosinophils 2.8 % (0-6); % Immature Granulocytes 0.1 % (0-0.5); % Lymphocytes 36.4 % (20.5-51.1); % Monocytes 9.1 % (1.7-9.3); % Neutrophils 51.3 % (42.2-75.2); Absolute Eosinophils 0.3 10^3/uL (0-0.7); Absolute Lymphocytes 3.2 10^3/uL (1.2-3.4); Absolute Monocytes 0.8 10^3/uL (0.1-0.6); Absolute Neutrophils 4.6 10^3/uL (1.4-6.5); Hemoglobin 9.5 g/dL (12.0-16.0); Mean Corp Hgb Conc. 32.8 g/dL (33.0-37.0); Mean Corpuscular Hgb 34.2 pg (27.0-31.0); Mean Corpuscular Volume 104.3 fL (81.0-99.0); Platelet Count 250 10^3/uL (130-400); Red Blood Cell Count 2.78 10^6/uL (4.20-5.40); Red Cell Dist. Width 14.1 % (11.5-14.5); White Blood Cell Count 8.9 10^3/uL (4.8-10.8)
[2024-12-06 13:06] LABS: ALT (SGPT) < 10 U/L (0-35); AST (SGOT) 22 U/L (14-36); Albumin 3.6 g/dl (3.5-5.0); Alkaline Phosphatase 87 U/L (38-126); Blood Urea Nitrogen 20 mg/dl (7-17); Calcium 8.6 mg/dl (8.4-10.2); Carbon Dioxide 26 mmol/L (22-30); Chloride 104 mmol/L (98-107); Glucose 91 mg/dl (70-99); Potassium 4.8 mmol/L (3.5-5.1); Sodium 137 mmol/L (135-145); Total Bilirubin 0.3 mg/dl (0.2-1.3); Total Protein 6.3 g/dl (6.3-8.2); eGFR > 60.00
== END ==
LOC: OIDL 13:46
PROVIDERS: ATTENDING PHYSICIAN Internal Medicine Hematology & Oncology
DX: C54.1 Malignant neoplasm of endometrium (principal)
CPT/HCPCS: 80053; 85025

== ENCOUNTER → 2024-12-25 13:24 | Outpatient (REF) | payer OTHER, SELFPAY | LOC: RAD 13:24 | PROVIDERS: ATTENDING PHYSICIAN Internal Medicine Hematology & Oncology; FAMILY PHYSICIAN Family Medicine | DX: C54.1 Malignant neoplasm of endometrium (principal); R18.8 Other ascites; G89.3 Neoplasm related pain (acute) (chronic); E87.6 Hypokalemia; G62.0 Drug-induced polyneuropathy | CPT/HCPCS: 71260; 74177; Q9967 ==

== ENCOUNTER → 2025-03-09 09:00 | Outpatient (REF) | payer OTHER, SELFPAY | LOC: RAD 09:00 | PROVIDERS: ATTENDING PHYSICIAN Nurse Practitioner Primary Care; FAMILY PHYSICIAN Family Medicine; OTHER PHYSICIAN Internal Medicine Hematology & Oncology | DX: C54.1 Malignant neoplasm of endometrium (principal); R18.8 Other ascites; G89.3 Neoplasm related pain (acute) (chronic); E87.6 Hypokalemia; G62.0 Drug-induced polyneuropathy | CPT/HCPCS: 71260; 74177; Q9967 ==

== ENCOUNTER → 2025-04-16 08:35 | Outpatient (REF) | payer OTHER, SELFPAY | LOC: MRI 08:35 | PROVIDERS: ATTENDING PHYSICIAN Internal Medicine Hematology & Oncology; FAMILY PHYSICIAN Family Medicine | DX: C54.1 Malignant neoplasm of endometrium (principal); R18.8 Other ascites; G89.3 Neoplasm related pain (acute) (chronic); E87.6 Hypokalemia; G62.0 Drug-induced polyneuropathy | CPT/HCPCS: 70553; A9585 ==

== ENCOUNTER → 2025-05-02 14:41 | Outpatient (REF) | payer OTHER, SELFPAY | LOC: HWRAD 14:41 | PROVIDERS: ATTENDING PHYSICIAN Internal Medicine Hematology & Oncology; FAMILY PHYSICIAN Family Medicine | DX: M79.605 Pain in left leg (principal) | CPT/HCPCS: 93970 ==

== ENCOUNTER → 2025-06-18 09:00 | Outpatient (REF) | payer OTHER, SELFPAY | LOC: RCS 09:00 | PROVIDERS: ATTENDING PHYSICIAN Obstetrics & Gynecology Gynecologic Oncology | DX: G62.0 Drug-induced polyneuropathy (principal); E87.6 Hypokalemia; C54.1 Malignant neoplasm of endometrium; G89.3 Neoplasm related pain (acute) (chronic); R18.8 Other ascites | CPT/HCPCS: 36415; 93005 ==

== ENCOUNTER → 2025-06-22 08:16 | Outpatient (REF) | payer OTHER, SELFPAY ==
[2025-06-22] VITALS (7 sets, daily range): BP systolic 56–153; BP diastolic 49–59; BMI 21.5
== END ==
LOC: RADI 08:16
PROVIDERS: ATTENDING PHYSICIAN Obstetrics & Gynecology Gynecologic Oncology; FAMILY PHYSICIAN Family Medicine
DX: C54.1 Malignant neoplasm of endometrium (principal)
CPT/HCPCS: 49180; 77012; 88305; 88333; 88341; 88342; 88360; 99152

== ENCOUNTER → 2025-06-26 14:28 | Outpatient (REF) | payer OTHER, SELFPAY ==
[2025-06-26 16:18] LABS: Urine Character Clear (Clear)
[2025-06-26 16:25] LABS: Urine Squamous Cell 0-2 /LPF (Few); Urine White Cell 0-2 /HPF (0-5)
[2025-06-26 16:45] LABS: LDH 146 U/L (120-246); Magnesium 1.9 mg/dl (1.6-2.3); Uric Acid 3.7 mg/dl (2.5-6.2)
[2025-06-26 17:32] LABS: Hepatitis B Surface Antigen Negative (Negative)
[2025-06-26 17:50] LABS: Hepatitis C Antibody Negative (Negative)
== END ==
LOC: RAD 14:28
PROVIDERS: ATTENDING PHYSICIAN Obstetrics & Gynecology Gynecologic Oncology
DX: G62.0 Drug-induced polyneuropathy (principal); E87.6 Hypokalemia; C54.1 Malignant neoplasm of endometrium; G89.3 Neoplasm related pain (acute) (chronic); R18.8 Other ascites
CPT/HCPCS: 36415; 71260; 74177; 81003; 81015; 83615; 83735; 84100; 84550; 86704; 86803; 87340; 87389; 93306; Q9967

== ENCOUNTER 2025-08-07 18:23 | Inpatient (IN) | payer OTHER, SELFPAY ==
[2025-08-07] VITALS (15 sets, daily range): BP systolic 101–150; BP diastolic 28–60; BMI 19.3; BMI 20.8
[2025-08-07 14:31] LABS: Hematocrit 22.1 % (37.0-47.0); Hemoglobin 7.3 g/dL (12.0-16.0); Mean Corp Hgb Conc. 33.0 g/dL (33.0-37.0); Mean Corpuscular Volume 100.5 fL (81.0-99.0); Platelet Count 154 10^3/uL (130-400); Red Cell Dist. Width 15.0 % (11.5-14.5)
[2025-08-07 14:46] LABS: Nucleated Red Blood Cells % 0.3 %
[2025-08-07 15:12] LABS: ALT (SGPT) < 10 U/L (0-35); AST (SGOT) 16 U/L (14-36); Alkaline Phosphatase 68 U/L (38-126); Blood Urea Nitrogen 29 mg/dl (7-17); Carbon Dioxide 22 mmol/L (22-30); Chloride 109 mmol/L (98-107); Estimated Creatinine Clearance 24 ml/min; Glucose 101 mg/dl (70-99); Potassium 3.7 mmol/L (3.5-5.1); Sodium 135 mmol/L (135-145); Total Protein 4.9 g/dl (6.3-8.2); eGFR 36.87
[2025-08-07 15:25] LABS: Albumin 2.8 g/dl (3.5-5.0); Calcium 8.3 mg/dl (8.4-10.2)
[2025-08-07 16:23] LABS: Troponin I < 0.012 ng/ml
[2025-08-07] MEDS: TYLENOL 650 MG PO (16:37)
--- NOTE | 2025-08-07 16:53 | ED.GENMED ---
History of Present Illness
General
Chief Complaint: Fainting/Passed Out
Source: patient
Exam Limitations: none
Time Seen by Provider: 08/07/25 15:21
Nursing documentation reviewed up to this point in time: agreed with
History of Present Illness
History of Present Illness:
Patient is an 84-year-old female currently undergoing treatment for endometrial cancer with history of hypertension, hyperlipidemia who presents to the emergency department via EMS after syncopal event at [facility]. Patient states that she was
shopping at [facility] earlier this afternoon when she started to feel lightheaded and dizzy and then lost consciousness. Fortunately�a bystander was able to catch her and she did not hit her head.
Patient believes that she was only unconscious for a few minutes and denies any confused state after waking up. At this time now she feels much better.
Patient denies any preceding chest pain or shortness of breath. No tearing back pain. Patient denies any recent bloody or dark stools. She denies any fevers, productive cough. No bowel/bladder incontinence during syncopal event.
Of note�patient is receiving a new trial drug for endometrial cancer. She states that she has not been eating/drinking much at all. No history of GI bleeding.
She follows with Dr. Campbell as her oncologist
Past History
Past History
ED Past Medical History: Cancer (Endometrial cancer, T-cell Lymphoma), HTN, Hypercholesterolemia and Other (Migraines, Ascites, ); Negative NIDDM
ED Past Surgical History: Gynecological (Vulvectomy, Hysterectomy, Breast lumpectomy) and Other (Cataracts, )
Social History
Tobacco: Former smoker
Alcohol: None
Drug: None
Personal:
Living: with family
Review of Systems
Review of Systems
Allergies reviewed?: Yes
All Other Systems: ROS reviewed and negative except as documented in HPI and ROS
Phy Exam
Physical Exam
Physical Exam:
Vitals: Patient's vital signs are stable. Afebrile
General: Patient is pale and generally weak appearing
Skin: Warm and dry, no rashes or lesions
Head: Normocephalic, atraumatic
Eyes: Sclera nonicteric.
Throat: Protecting airway
Neck: Normal ROM, no cervical spine tenderness, no meningismus
Cardiac: Regular rate and rhythm, no murmurs. 2+ palpable radial pulses bilaterally
Pulm: Normal respiratory effort, no wheezes, rales, rhonchi heard on exam
Abdomen: Abdomen soft and nontender.
Rectal: Soft brown stool in vault, guaiac negative
Extremities: No evidence of cyanosis or edema. Perfusing well
Neuro: AAOx3. Grossly intact.
Psychiatric: Normal affect.
Course
Orders/Labs/Results
Orders:
Orders
08/07/25 Lunch
Regular
At Your Request: Full Participation
08/07/25 13:41
Electrocardiogram (*1) Urgent
Reason for Study: Vertigo / Dizzy
08/07/25 13:42
EKG- Treatment ONCE
08/07/25 13:49
Complete Blood Count/With Diff Urgent
Comprehensive Metabolic Panel Urgent
Ferritin Urgent
Comment: FRANCAON
Folate Urgent
Comment: FRANCAON
Iron Urgent
Comment: FRANCAON
Total Iron Binding Urgent
Comment: ADDON
Vitamin B12 Urgent
Comment: ADDON
08/07/25 14:45
Heparin Pf [Heparin Lock Flush] 500 unit IV PER PROTOCOL
08/07/25 15:43
Troponin I Urgent
08/07/25 16:33
Blood Bank Products [* Blood Bank Products] Urgent
Blood Bank Products: *Packed RBC Leuko(PRBC's)
Quantity: 1
Transfuse Today: Yes
Reason: Anemia
Acetaminophen [Tylenol] 650 mg PO NOW STA
08/07/25 16:52
Type+Screen Urgent
BBK Wristband Number:
08/07/25 17:54
Add On- LAB Routine
Tests Added?: iron, tibc, ferritin, % sat, B12, Folate
08/07/25 17:55
Admit/Transfer Patient As Directed
Co-Sign Provider:
Level of Care: Inpatient admission
Assign to:: Telemetry
Physician / Group: Kit Rodriguez - hospitalists
Diagnosis: syncope, anemia, GABY
Reason for Telemetry: Syncope
Date to Stop Telemetry: 08/09/25
Time to Stop Telemetry: 11:00
Reason for Hospitalization: IVF, blood transfusion
Expected length of stay greater than two midnights?: Yes
ELOS- Estimated Length of Stay in days: 2
I certify the patient meets the requirements for IP care: Yes
PRN Pain Medication Management As Directed
May give lesser potent ordered pain med per pt: Yes
preference::
Protocol:: Medication orders for pain may be administered in a
manner that supports deferring to patient preference
when the pt is:
- Requesting an ordered lesser potent pain medication.
Least to most potent pain medications are defined
as: acetaminophen < NSAID < tramadol < opioids
(morphine, oxycodone, hydromorphone).
- Requesting a lesser dose of the same medication IF
ORDERED.
- Requesting a less intrusive route of administration
if both routes are prescribed by the provider (PO <
IV).
08/07/25 17:56
Code Status As Directed
Resuscitation Status: Full Code
08/07/25 21:14
0.9% Sodium Chloride 1000 ml [Nss] 1,000 ml IV 80 mls/hr
Acetaminophen [Tylenol] 650 mg PO Q4HPRN PRN
Bisacodyl [Dulcolax] 10 mg RECTAL [id number] PRN
Docusate W/Senna [Senokot-S] 1 tablet PO BIDPRN PRN
Ondansetron Injectable [Zofran] 4 mg IV Q6HPRN PRN
Polyethylene Glycol Powder [Miralax] 17 grams PO DAILYPRN PRN
08/07/25 21:14
CARDIOLOGY CONSULT Routine
Consulting Provider: Vini Lin
Was physician already notified: Yes
SEALS ENGRAVER Oncology Consult Routine
Consulting Provider: Dante Campbell
Was physician already notified: Yes
Activity As Directed
Activity Level: As Tolerated
Orthostatic Vital Signs As Directed
Orthostatic VS Frequency: Daily
Vital Signs As Directed
Frequency: Per unit guidelines
Ot Eval And Treat Routine
Pt Eval And Treat Routine
Activity Level: As Tolerated
DX Deep Vein Thrombosis Video Routine
08/07/25 22:00
Enoxaparin Sodium [Lovenox] 30 mg SC QPM
08/08/25 06:00
Basic Metabolic Panel IN AM
Complete Blood Count/No Diff IN AM
08/09/25 11:00
DC Protocol for Telemetry ONCE
Abnormal Lab Results
08/07/25 08/07/25
13:49 16:52
WBC 10.9 H 10^3/uL
(4.8-10.8)
RBC 2.20 L 10^6/uL
(4.20-5.40)
Hgb 7.3 L g/dL
(12.0-16.0)
Hct 22.1 L %
(37.0-47.0)
MCV 100.5 H fL
(81.0-99.0)
MCH 33.2 H pg
(27.0-31.0)
RDW 15.0 H %
(11.5-14.5)
MPV 11.4 H fL
(7.4-10.4)
Abs Immat Gran (auto) 0.2 H 10^3/uL
(0-0.05)
Absolute Neuts (auto) 8.8 H 10^3/uL
(1.4-6.5)
Absolute Lymphs (auto) 0.8 L 10^3/uL
(1.2-3.4)
Absolute Monos (auto) 1.1 H 10^3/uL
(0.1-0.6)
Immature Gran % 1.9 H %
(0-0.5)
Neutrophils % 80.3 H %
(42.2-75.2)
Lymphocytes % 7.7 L %
(20.5-51.1)
Monocytes % 9.7 H %
(1.7-9.3)
Chloride 109 H mmol/L
(98-107)
BUN 29 H mg/dl
(7-17)
Creatinine 1.4 H mg/dL
(0.6-1.0)
Glucose 101 H mg/dl
(70-99)
Calcium 8.3 L mg/dl
(8.4-10.2)
TIBC 241 L ug/dl
(265-497)
% Saturation 15 L %
(20-50)
Total Protein 4.9 L g/dl
(6.3-8.2)
Albumin 2.8 L g/dl
(3.5-5.0)
Vitamin B12 > 1000 H pg/ml
(239-931)
Folate > 20.0 H ng/ml
(2.76-20)
Crossmatch IS Only See Detail
08/07/25 13:49
08/07/25 13:49
Vital Signs
Initial and Last Documented VS:
Initial Vital Signs
Temp
97.8 F
08/07/25 13:42
Last Documented Vital Signs
Temp Pulse Resp BP Pulse Ox
98.2 F 78 16 122/47 99
08/07/25 23:03 08/07/25 23:03 08/07/25 23:03 08/07/25 23:03 08/07/25 23:03
MDM/Problems Addressed
Differential Diagnosis Includes:
Not limited to: Vasovagal syncope, cardiac arrhythmia, acute dehydration, symptomatic anemia, GI bleeding, medication side effect, seizure, etc.
MDM/Problems Addressed:
84-year-old female with history as documented significant for endometrial cancer currently receiving treatment presents after syncopal event while shopping. No head strike or injuries sustained. No proceeding chest pain, shortness of breath however
she did feel lightheaded. She is currently on new trial drug for endometrial cancer. Vitals and physical exam as above. Patient somewhat pale and generally weak appearing, however in no distress. Cardio/pulmonary assessment unremarkable. Abdomen
benign. Rectal exam with light brown, guaiac negative stool.
Labs obtained prior to my evaluation significant for anemia with hemoglobin of 7.3 which is approximately 2 g lower from prior value earlier this year. Chemistry reveals mild GABY with Cr elevation to 1.4 and elevation of BUN likely secondary to poor
intake/dehydration. EKG without arrhythmia or acute ischmic changes and negative troponin.
Overall impression is likely syncope secondary to symptomatic anemia vs dehydration. No evidence of G.I. bleeding, suspect anemia likely due to cancer treatment. Do not suspect cardiac etiology.
Recommended admission for blood transfusion, IV fluids, repeat hemoglobin tomorrow. Patient agreeable with plan, blood consent signed. One unit PRBCs ordered in ED. Patient accepted to hospitalist service in stable condition.
Chronic conditions affecting care:
Endometrial cancer
Acute Exacerbation and/or Progression of Chronic Illness:
N/A
*Pulse Oximetry
SaO2: 100
Patient hypoxic: no
*EKG
Interpreted by ED Provider?: Yes
EKG Intrepretation Date: 08/07/25
Interpretation: normal
Comparison EKG: no changes
Heart Rate: 69
Rate: normal
Rhythm: sinus
[place]: normal axis
Interval: normal QT interval
QRS Pattern: normal QRS
Ischemia: no ischemia
*Visual Journalist Interpretation
Rate: normal
Interpretation: normal
Heart Rate: 74
Rhythm: sinus
*Critical Care Note
Total Time (30-74mins, 75-104mins- exclusive of procedures): Not Applicable
Patient Management
Discussion with other providers: Hospitalist
Escalation/DeEscalation of care consider admission/obs:
Admit for syncope secondary to symptomatic anemia or acute dehydration
ED Attending Note
-
Portions of this chart may have been created with voice recognition software.� Occasional wrong word or��sound alike� substitutions may have occurred due to the inherent limitations of voice recognition software.
Discharge Plan
Departure
Patient Disposition: Admit
Date of Disposition: 08/07/25
Time of Disposition: 17:14
Presentation/result/management discussed w/ accepting MD/DO: Hospitalist
Discharge Problem:
Symptomatic anemia, Syncope
Interventions
Interventions:
*Risk Screen - Suicide Last Done: 08/07/25 13:42
*General Assessment Last Done: 08/07/25 13:42
*Neglect/Abuse Screening Last Done: 08/07/25 13:42
*ED- Fall Risk Assessment Last Done: 08/07/25 13:42
*ED COVID-19 Vaccine History Last Done: 08/07/25 13:42
*Nursing Disposition Last Done: 08/07/25 21:17
ED- Cardiac Assessment Last Done: 08/07/25 13:42
ED- Neurological Assessment Last Done: 08/07/25 13:42
Discharge Date and Time
Discharge Date/Time: 08/07/25 21:19
--- NOTE | 2025-08-07 17:45 | HPS.HSE ---
Family Physician
-
Family Physician: Dora Zepeda
Chief Complaint
-
syncope
History of Present Illness
84 y/o F, hx of endometrial cancer on trial chemotherapy ('SG'), HTN, HLD presents to ER via EMS for syncopal event at [facility]. Patient states she woke up today in her usual state of health and went bowling this morning. On the way home, she stopped
to grab a few things from [facility]. While shopping, patient began to feel lightheaded and dizziness. She then lost consciousness; a bystander was able to catch her before she hit the ground. She was unconscious for a few minutes before waking up. She
reports her mentation was normal upon waking. No proceeding chest pain or SOB. No pain. No recent dark stools or bleeding. no fevers. No diarrhea or vomiting
She is on 'SG' for trial chemotherapy for endometrial cancer; followed by Dr. Campbell.
She reports recently wearing an outpatient heart monitor with Cardiology office (Dr. Navas) - no acute findings. Was planned for outpatient implantable monitor as next step.
Medical History
Past Medical History
Past Medical History: Reports Other (endometrial cancer on trial chemotherapy ('SG'), HTN, HLD)
Past Surgical History: Reports Other (Gynecological (Vulvectomy, Hysterectomy, Breast lumpectomy) and Other (Cataracts, ))
Social History
Tobacco: Former Smoker
Drug: None
Personal:
Living: With Family
Employment: Retired
Family History
Family History: Not pertinent
Allergies / Home Medications
Allergies reflects when Allergies were last updated in [employer].
Home Medications with original date entered in [employer]
Allergy/Medication List:
Allergies
Allergy/AdvReac Type Severity Reaction Status Date / Time
cefaclor (From [facility]) Allergy Rash Verified 06/22/25 08:54
shrimp Allergy RASH-Does Verified 06/22/25 08:54
eat shrimp
Home Medications
amlodipine 5 mg tablet 5 mg PO DAILY 06/20/25
lactobacillus comb no.10 20 billion cell capsule (Probiotic) 20,000 mmu cells PO DAILY 06/20/25
losartan 50 mg tablet 50 mg PO DAILY 06/20/25
multivitamin 1 tab PO DAILY 06/20/25
pyridoxine (vitamin B6) 50 mg capsule (Vitamin B-6) 50 mg PO DAILY 06/20/25
Review of Systems
-
A 12 point ROS was completed and negative except as noted: Yes
Physical Exam
Vital Signs
Vital Signs
Temp Pulse Resp BP Pulse Ox
97.8 F 67 19 129/41 100
08/07/25 13:42 08/07/25 17:30 08/07/25 17:30 08/07/25 17:00 08/07/25 17:30
Physical Exam
General: No Apparent Distress and Comfortable
HEENT: NormoCephalic and Anicteric
Respiratory: Wheezes, Rales and Rhonchi; No Clear
Cardiac: S1/S2 and Regular Rhythm
GI: Soft and Non Tender
Musculoskeletal: No Edema
Neuro: AO x 3
Hematologic/Lymphatic: No Lymphadenopathy
Psych: Calm
Laboratory Results
-
08/07/25 13:49
08/07/25 13:49
Laboratory Results
Total Bilirubin 0.5 mg/dl (0.2-1.3) 08/07/25 13:49
AST 16 U/L (14-36) 08/07/25 13:49
ALT < 10 U/L (0-35) 08/07/25 13:49
Alkaline Phosphatase 68 U/L (38-126) 08/07/25 13:49
Troponin I < 0.012 ng/ml 08/07/25 15:43
Data Reviewed
-
Lab Data: Labs Reviewed by me
Impression/Plan
-
Assessment:
Syncopal event
- tele Admit
- could be related to dehydration or anemia. No historical details suggestive of seizure or vasovagal etiology
- patient reports recent heart monitor outpatient without findings. Next step was implantable monitor per patient.
- Echo 06/26/25: Normal biventricular size and systolic function without regional wall motion abnormality. LV ejection fraction is 65-70% by Telles's method of discs. Normal diastolic function. Gabriella EPIQ left ventricular
global longitudinal strain is -20.7%. Mild mitral regurgitation. Top normal estimated PASP, 40 mmHg.
- consult Cardiology
- check orthostatics VS
- PT/OT
acute on chronic anemia
- add on anemia indices
- 1 unit PRBC ordered by ER; f/u AM CBC
- heme-test negative, pt denies any bleeding
GABY suspect related to dehydration
- IVF
- monitor AM BMP
- holding nephrotoxins
endometrial cancer on trial chemotherapy ('SG'),
- likely sacituzumab/govitecan
- consult Dr. Campbell for evaluation if this agent is contributing to presenting symptoms
Essential HTN
- holding ARB/CCB
HLD - not on meds
DVT ppx: Lovenox
Code: Full
[2025-08-07 18:28] LABS: Iron 38 ug/dl (37-170)
[2025-08-07 18:37] LABS: Total Iron Binding Capacity 241 ug/dl (265-497)
[2025-08-07 19:33] LABS: Ferritin 215.0 ng/ml (11.1-264.0)
[2025-08-07 20:04] LABS: Folate > 20.0 ng/ml (2.76-20); Vitamin B12 > 1000 pg/ml (239-931)
[2025-08-07] MEDS: NSS 1000 IV (21:56)
[2025-08-07] MEDS: LOVENOX 30 MG SC (21:56)
[2025-08-08 03:05] VITALS: BP 130/52
[2025-08-08 05:35] LABS: Blood Urea Nitrogen 27 mg/dl (7-17); Calcium 8.3 mg/dl (8.4-10.2); Carbon Dioxide 23 mmol/L (22-30); Chloride 110 mmol/L (98-107); Estimated Creatinine Clearance 32 ml/min; Glucose 77 mg/dl (70-99); Potassium 3.7 mmol/L (3.5-5.1); Sodium 137 mmol/L (135-145); eGFR 49.24
[2025-08-08 05:41] LABS: Hematocrit 25.6 % (37.0-47.0); Hemoglobin 8.8 g/dL (12.0-16.0); Mean Corp Hgb Conc. 34.4 g/dL (33.0-37.0); Mean Corpuscular Volume 95.2 fL (81.0-99.0); Platelet Count 137 10^3/uL (130-400); Red Cell Dist. Width 18.9 % (11.5-14.5)
[2025-08-08 07:19] VITALS: BP 134/60
--- NOTE | 2025-08-08 07:35 | CON.CAR ---
Addendum entered and electronically signed by Delon Hwang DO 08/08/25 18:16:
I saw and examined the patient 10 AM August 08, 2025.
The Cotton Inspector's note was reviewed and I agree with the note.
Comment:
Plan:
Syncope likely related to anemia and she feels much improved after transfusion with improvement of hemoglobin.
Her recent echo had preserved LV function.
She is not orthostatic.
Her blood pressure is stable.
She was encouraged to consider a implantable loop recorder given her prior CVA history as recommended by her vinyl top installer.
Primary service was updated
Original Note:
Consultation
Consultation Request
Date/Time Consultation Requested: 08/07/25 at 2114
Date/Time Consultation Performed: 08/08/25 at 0822
Requesting Provider: Dr. Rodriguez
Performing Provider: Dr. Hwang
Reason for Consultation: Syncope
Medical History
-
History of Present Illness:
Patient came to the ER yesterday with an episode of syncope and cardiology has been consulted. Patient awoke in her usual state of health and went bowling without difficulty. Patient stopped at a store on her way home and felt lightheaded. Patient
felt fine when she stood up from her car and was walking around the store. Then near the end of her trip she began to feel very lightheaded and laid her head down on the handle of the shopping cart and a bystander witnessed this and was able to
catch the patient before she fell. Patient says that she definitely felt lightheaded before the episode, but no chest pain or SOB. Patient denies any previous syncope. Patient is currently undergoing chemotherapy as part of a clinical trial for
her recurrent endometrial cancer. The drug is called 'SG 'and her regimen is 2 weeks on, 1 week off, 1 week on and then 1 week off and then 2 weeks on again. Patient says that this chemotherapy regimen is the hardest that she is ever had since her
cancer journey began in 2013. Her stomach feels sick all the time and she is not eating and drinking although has only lost about 1 lb. She has never been anemic and reports this is the first blood transfusion she has ever had.
PMH:
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
several scattered small nonhemorrhagic acute and subacute infarcts B/L cerebral hemispheres and left cerebellum
HTN
Hyperlipidemia
Endometrial cancer
s/p PAOLO-BSO 2013
recurrent carcinomatosis treated with Keytruda 2021
clinical trial with abemaciclib and letrozole 10/18/23 until 03/18/24
carboplatin, paclitaxel and bevacizumab 03/2024 until 04/2025
recurrent carcinomatosis and enrolled in clinical trial
Past Medical History
Past Medical History: Other (in HPI)
Past Surgical History: Gynecological (lumpectomy, PAOLO-BSO, vulvectomy for Paget's disease)
Social History
Tobacco: Non-Smoker
Alcohol: Occasional
Drug: None
Personal:
Living: With Family
Family History
Family History: CAD, Diabetes and Hypertension
Allergies / Home Medications
Allergy/AdvReac Type Severity Reaction Status Date / Time
cefaclor (From [facility]) Allergy Rash Verified 06/22/25 08:54
shrimp Allergy RASH-Does Verified 06/22/25 08:54
eat shrimp
�Medication �Instructions �Recorded �Confirmed �Type
amlodipine 5 mg tablet 5 mg PO DAILY 06/20/25 08/07/25 History
losartan 50 mg tablet 50 mg PO DAILY 06/20/25 08/07/25 History
Lactobac no.2-Bifidobac no.1-S. 1 cap PO QPM 08/07/25 08/07/25 History
thermo 112.5 billion cell capsule
(Visbiome)
aspirin 81 mg tablet,delayed 81 mg PO DAILY 08/07/25 08/07/25 History
release
ezetimibe 10 mg tablet (Zetia) 10 mg PO DAILY 08/07/25 08/07/25 History
metoclopramide HCl 10 mg tablet 10 mg PO TIDPRN PRN nausea 08/07/25 08/07/25 History
(Reglan)
pyridoxine (vitamin B6) 25 mg 25 mg PO DAILY 08/07/25 08/07/25 History
tablet
Review of Systems
-
History Source: Patient
All other systems: Negative unless noted
Physical Exam
Vital Signs
Temp Pulse Resp BP Pulse Ox
97.6 F 74 17 134/60 96
08/08/25 07:19 08/08/25 07:19 08/08/25 07:19 08/08/25 07:19 08/08/25 07:19
GEN: NAD. AAOx3
HEENT: EOMI, MMM
LUNGS: RA. CTA B/L
CV: SR on tele. Reg, S1/S2, no murmur
ABD: soft, BS+, NT, ND
EXT: No edema B/L LE
NEURO: Gross non-focal
SKIN: No rash
Lab Results
08/08/25 04:32
08/08/25 04:32
Troponin I < 0.012 ng/ml 08/07/25 15:43
Impression / Plan
-
PCP: Dr. Zepeda
Card: Dr. Rolanda Velazquez
Impression:
Admitted with syncope 08/07/25
Syncope
Anemia s/p 1 unit PRBCs 08/07/25
GABY
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
several scattered small nonhemorrhagic acute and subacute infarcts B/L cerebral hemispheres and left cerebellum
HTN
Hyperlipidemia
Endometrial cancer
s/p PAOLO-BSO 2013
recurrent carcinomatosis treated with Keytruda 2021
clinical trial with abemaciclib and letrozole 10/18/23 until 4/20/24
carboplatin, paclitaxel and bevacizumab 03/2024 until 04/2025
recurrent carcinomatosis and enrolled in clinical trial
Echo 06/26/25: EF 65-70%, no WMA, GLS -20.7%
Plan:
-Patient came to the ER yesterday with an episode of syncope and cardiology has been consulted. Patient awoke in her usual state of health and went bowling without difficulty. Patient stopped at a store on her way home and felt lightheaded. Patient
felt fine when she stood up from her car and was walking around the store. Then near the end of her trip she began to feel very lightheaded and laid her head down on the handle of the shopping cart and a bystander witnessed this and was able to
catch the patient before she fell. Patient says that she definitely felt lightheaded before the episode, but no chest pain or SOB. Patient denies any previous syncope. Patient is currently undergoing chemotherapy as part of a clinical trial for
her recurrent endometrial cancer. The drug is called 'SG 'and her regimen is 2 weeks on, 1 week off, 1 week on and then 1 week off and then 2 weeks on again. Patient says that this chemotherapy regimen is the hardest that she is ever had since her
cancer journey began in 2013. Her stomach feels sick all the time and she is not eating and drinking although has only lost about 1 lb. She has never been anemic and reports this is the first blood transfusion she has ever had.
-ECG reviewed by me SR. telemetry reviewed by me and no evidence of arrhythmia or pause.
-Recent echo from 06/26/2025 was reviewed and summarized above by me. Her EF was preserved at that time without WMA.
-Suspect that syncope was hypovolemia related to dehydration with evidence of GABY and anemia with low Hgb.
-Patient was given 1 unit PRBCs on 08/07/2025 and the Hgb improved from 7.3 up to 8.8 on my review of labs today.
-Patient has also received 1 L IVF's and patient reports dramatic symptomatic improvement and says this is the best she has felt since she started chemotherapy in June
-Patient's oncologist was in to see her on 08/08/2025 AM and the patient is unaware of any changes that are planned for her chemotherapy regimen
-Separately the patient had embolic appearing strokes on an MRI of the brain 03/2025 and there was concern for cardiac arrhythmia. Patient wore a 10-day rhythm star monitor that did not show atrial arrhythmia and patient was then recommended Linq
implantable monitor, but she was not interested. Patient called the office on 08/06/2025 to review again as she thought it might interfere with her chemotherapy treatment, the patient was assured that Linq monitor will have no impact on her cancer
treatment. At patient's request I will call her to review this as well. Linq monitor can be implanted as an outpatient.
-Patient is otherwise stable for discharge from a cardiac standpoint
--- NOTE | 2025-08-08 08:24 | CON.ONC ---
Consultation
-
Date Consultation Requested: 08/08/25
Date Consultation Performed: 08/08/25
Requesting Provider: Kit Rodriguez MD
Performing Provider: Dr. Garcia
Reason for Consultation: Endometrial aner with Carccinomatosis
Impression
Impression
Endometrial Cancer with Carcinomatosis
Syncopal Event
GABY
Essential Hypertension
Hyperlipidemia
Anemia of Chronic Disease
Plan
Plan
Endometrial Cancer with Carcinomatosis
-Suspect that syncopal event could be multifactorial due to dehydration/GABY/anemia, though a Sacituzumab Govetecan adverse effect cannot be ruled out
-Will report her admission and syncopal event to clinical trial.
-Patient will need to follow up outpatient with Dr. Campbell for further conversation about Sacituzumab Govetecan treatment. At this time, no changes to her ongoing therapy will be made during this hospitalization
-Thank you for the consult.
Patient History
History of Present Illness
This is an 84 y/o female with pmhx of endometrial cancer treated at [facility] in 2013 and a recurrent carcinomatosis in 2021 who is known to Dr. Garcia in the outpatient setting. She recently transitioned her care to Dr. Campbell at [place] [facility]. 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 There was also a new 1.4cm soft
tissue nodule adjacent to the inner curvature of the stomach suspicious for new peritoneal implant.
She was enrolled in the [place] clinical trial and has been randomized to receive Sacituzumab Govetecan (SG). She received this on 07/05 and 07/12. She also received GF on 07/13. Her last appointment in the office was on 07/24/2025. At that time she was
experiencing some diarrhea that resolved with Imodium. She had no recurrence of these symptoms.
She presented to the ED on 08/07/2025 after a syncopal event at [facility]. She began to feel lightheaded and dizzy, then lost consciousness while shopping. Fortunately a bystander was able to catch her before she hit the ground. The bystander reported
she was unconscious for a few minutes before waking up.
In the ED her hemoglobin was low at 7.3, with a hematocrit of 22.1. Her WBC was elevated at 10.9. She also had an GABY with. Creatinine of 1.4. She was given 1 unit of pRBCs and admitted for further management.
Today, patient reports feeling very well. She has no complaints and is free of pain or dizziness.
Past-Medical/Surgical History
Endometrial Cacncer with Carcinomatosis
Essential Hypertension
Hyperlipidemia
Anemia of Chronic Disease
Patient Medication
�Medication �Instructions �Recorded �Confirmed �Last Taken �Type
amlodipine 5 mg tablet 5 mg PO DAILY 06/20/25 08/07/25 08/07/25 History
losartan 50 mg tablet 50 mg PO DAILY 06/20/25 08/07/25 08/07/25 History
Lactobac no.2-Bifidobac no.1-S. 1 cap PO QPM 08/07/25 08/07/25 08/06/25 History
thermo 112.5 billion cell capsule
(Visbiome)
aspirin 81 mg tablet,delayed 81 mg PO DAILY 08/07/25 08/07/25 08/07/25 History
release
ezetimibe 10 mg tablet (Zetia) 10 mg PO DAILY 08/07/25 08/07/25 08/07/25 History
metoclopramide HCl 10 mg tablet 10 mg PO TIDPRN PRN nausea 08/07/25 08/07/25 Unknown History
(Reglan)
pyridoxine (vitamin B6) 25 mg 25 mg PO DAILY 08/07/25 08/07/25 08/07/25 History
tablet
Active Medications
Generic Name Dose Route Start Last Admin
Trade Name Freq PRN Reason Stop Dose Admin
Acetaminophen 650 mg 08/07/25 21:14
Acetaminophen 325 Mg Tablet PO 09/04/25 21:13
Q4HPRN PRN
mild pain/CLEMENTS/temp> 100.4F
Bisacodyl 10 mg 08/07/25 21:14
Bisacodyl 10 Mg Rectal Suppository RECTAL 09/04/25 21:13
[id number] PRN
constipation
Heparin Sodium (Porcine) 500 unit 08/07/25 14:45
Heparin Flush Pf (100 Unit/Ml) 5 Ml Syringe IV 09/04/25 14:44
PER PROTOCOL SILVERIO
Sodium Chloride 1,000 mls @ 80 mls/hr 08/07/25 21:14 08/07/25 21:56
Nss IV 08/08/25 09:43 1,000 mls
.[id number] SILVERIO Administration
Ondansetron HCl 4 mg 08/07/25 21:14
Ondansetron 4 Mg/2 Ml Vial IV 09/04/25 21:13
Q6HPRN PRN
nausea and vomiting
Polyethylene Glycol 17 grams 08/07/25 21:14
Polyethylene Glycol Powder 17 Grams Packet PO 09/04/25 21:13
DAILYPRN PRN
constipation
Senna/Docusate Sodium 1 tablet 08/07/25 21:14
Docusate W/Senna (Sharon-Colace) Tablet PO 09/04/25 21:13
BIDPRN PRN
constipation
Sodium Chloride 0 flush 08/07/25 22:00
Sodium Chloride 0.9% (Flush) Syringe IV 09/04/25 21:59
PER PROTOCOL SILVERIO
Sodium Chloride 2 sprays 08/08/25 08:15
Sodium Chloride 0.65% Nasal Cory 45 Ml Bottle NASAL 09/05/25 08:14
QIDPRN PRN
nosebleed
Review of Systems
-
History Source: Patient
Constitutional: Denies Fever
Respiratory: Denies Cough
Cardiac: Denies Chest Pain
Neuro: Denies Dizzy or Weakness
Physical Exam
-
General: Well Developed, Well Nourished, No Apparent Distress and Comfortable
Cardiology: Normal Sinus Rhythm, S1 and S2
Pulmonary: Clear
Skin: Warm and Dry
Psych: Calm and Intact Judgement/Insight
Labs
Lab Results
WBC 18.4 10^3/uL (4.8-10.8) H 08/08/25 04:32
RBC 2.69 10^6/uL (4.20-5.40) L 08/08/25 04:32
Hgb 8.8 g/dL (12.0-16.0) L D 08/08/25 04:32
Hct 25.6 % (37.0-47.0) L 08/08/25 04:32
MCV 95.2 fL (81.0-99.0) 08/08/25 04:32
MCH 32.7 pg (27.0-31.0) H 08/08/25 04:32
MCHC 34.4 g/dL (33.0-37.0) 08/08/25 04:32
RDW 18.9 % (11.5-14.5) H 08/08/25 04:32
Plt Count 137 10^3/uL (130-400) 08/08/25 04:32
MPV 11.5 fL (7.4-10.4) H 08/08/25 04:32
Abs Immat Gran (auto) 0.2 10^3/uL (0-0.05) H 08/07/25 13:49
Absolute Neuts (auto) 8.8 10^3/uL (1.4-6.5) H 08/07/25 13:49
Absolute Lymphs (auto) 0.8 10^3/uL (1.2-3.4) L 08/07/25 13:49
Absolute Monos (auto) 1.1 10^3/uL (0.1-0.6) H 08/07/25 13:49
Absolute Eos (auto) 0.0 10^3/uL (0-0.7) 08/07/25 13:49
Absolute Basos (auto) 0.0 10^3/uL (0-0.2) 08/07/25 13:49
Immature Gran % 1.9 % (0-0.5) H 08/07/25 13:49
Neutrophils % 80.3 % (42.2-75.2) H 08/07/25 13:49
Lymphocytes % 7.7 % (20.5-51.1) L 08/07/25 13:49
Monocytes % 9.7 % (1.7-9.3) H 08/07/25 13:49
Eosinophils % 0.2 % (0-6) 08/07/25 13:49
Basophils % 0.2 % (0-2) 08/07/25 13:49
Creatinine 1.1 mg/dL (0.6-1.0) H 08/08/25 04:32
Vital Signs
Vital Signs
Temp Pulse Resp BP Pulse Ox
97.6 F 74 17 134/60 96
08/08/25 07:19 08/08/25 07:19 08/08/25 07:19 08/08/25 07:19 08/08/25 07:19
[2025-08-08 08:27] LABS: Glucose - Point of Care 84 mg/dl (70-99)
[2025-08-08 08:45] VITALS: BP 150/63; BP 157/68; BP 164/61; PULSE 80; PULSE 88; O2SAT 100
[2025-08-08] MEDS: OCEAN, SALINE MIST 2 SPRAYS NASAL (09:20)
[2025-08-08 10:40] VITALS: BP 139/65; BP 155/54; PULSE 96; O2SAT 95
[2025-08-08 10:51] VITALS: BP 139/81
[2025-08-08 11:25] VITALS: BP 139/81
--- NOTE | 2025-08-08 11:41 | W.PN.HOSP.TC ---
Today's Communication/Plan
-
dc home
OP f/u Cutlet Maker Pork/Onc, Onc, Cards
Assessment / Plan
Assessment / Plan
Assessment:
Syncopal event
- could be related to dehydration or anemia. No historical details suggestive of seizure or vasovagal etiology
- patient reports recent heart monitor outpatient without findings. Next step was implantable monitor per patient. Cardiology was consulted and patient will re-evaluate this with OP Arc Trimmer.
- Echo 06/26/25: Normal biventricular size and systolic function without regional wall motion abnormality. LV ejection fraction is 65-70% by Telles's method of discs. Normal diastolic function. Gabriella EPIQ left ventricular
global longitudinal strain is -20.7%. Mild mitral regurgitation. Top normal estimated PASP, 40 mmHg.
- orthostatics VS negative
- PT/OT - home no needs
acute on chronic anemia
- s/p 1 unit PRBC, Hb from 7.3 to 8.8
- heme-test negative, pt denies any bleeding
GABY suspect related to dehydration
- improved with IVF
- monitor AM BMP
- holding nephrotoxins
endometrial cancer on trial chemotherapy ('SG'),
- likely sacituzumab/govitecan
- consult Dr. Campbell for evaluation if this agent is contributing to presenting symptoms
- no changes per Dr. Garcia Oncology
Essential HTN
- resume ARB/CCB at discharge
HLD - not on meds
Leukocytosis
- recent G-CSF injection last week
- no infectious symptoms
- monitor
DVT ppx: Lovenox
Code: Full
More than 30 minutes spent in discharge including
Final examination of the patient
Summarizing hospital stay
Instructions for continuing care to all relevant caregivers
Preparation of discharge records, prescriptions, and referral forms
Total time spent (in minutes): 41
Anticipated Discharge: Today
Subjective/Interval History
-
Date of Service: August 08, 2025
resting comfortably, no complaints at present
feels much improved after blood and fluids
independent in room, no dizziness or imbalance, no syncopal events. Normal rhythm on tele
Objective Data
-
Labs:
Laboratory Results
08/08/25
04:32
WBC 18.4 H
Hgb 8.8 L D
Hct 25.6 L
Plt Count 137
Sodium 137
Potassium 3.7
Chloride 110 H
Carbon Dioxide 23
BUN 27 H
Creatinine 1.1 H
Glucose 77
Calcium 8.3 L
Vital Signs:
Vital Signs
Temp Pulse Resp BP Pulse Ox
97.8 F 87 17 139/81 98
08/08/25 10:51 08/08/25 10:51 08/08/25 10:51 08/08/25 10:51 08/08/25 10:51
I&O
08/07/25 08/08/25 08/09/25
06:59 06:59 06:59
Intake Total 250 / 250
Balance 250 / 250
Physical Exam
-
General: No Apparent Distress
HEENT: Normocephalic and Atraumatic
Respiratory: Negative Wheezes
Cardiac: Regular Rhythm and S1/S2
GI: Soft
Genito-urinary: No Costovertebral Tender
Neuro: AO x 3
Hematologic / Lymphatic: No Lymphadenopathy
Psych: Calm
Data Reviewed
-
Total Time Spent with Patient (in minutes): 42
Labs: Labs Reviewed by me
--- NOTE | 2025-08-08 11:48 | W.DS.TRANS ---
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
-
Discharge Instructions:
Discharge Diagnosis/Procedures dehydration/anemia resulting in syncope
Diet Regular
Activity As tolerated
Bathing Restrictions None
Instructions:
Stand-Alone Forms:
Changes to Home Medications: No
Discharge Medications:
DC Medications w/original date entered in [employer]
amlodipine 5 mg tablet 5 mg PO DAILY Blood Pressure 06/20/25
losartan 50 mg tablet 50 mg PO DAILY Blood Pressure 06/20/25
Lactobac no.2-Bifidobac no.1-S. thermo 112.5 billion cell capsule (Visbiome) 1 cap PO QPM Gastrointestinal Issue 08/07/25
aspirin 81 mg tablet,delayed release 81 mg PO DAILY Blood Clot Prevention/Tx 08/07/25
ezetimibe 10 mg tablet (Zetia) 10 mg PO DAILY High Cholesterol 08/07/25
metoclopramide HCl 10 mg tablet (Reglan) 10 mg PO TIDPRN PRN nausea 08/07/25
pyridoxine (vitamin B6) 25 mg tablet 25 mg PO DAILY Supplement 08/07/25
Home Medication Changes
Pending Results: No
Total time spent discharging patient (in min): 42
[2025-08-08] MEDS: MYLICON 80 MG PO (12:03)
--- NOTE | 2025-08-08 12:18 | CM ---
Addendum entered by Sandra Patel 08/08/25 12:58:
IMM explained & signed. In chart
Original Note:
Patient seen at bedside
IA completed
Lives in a 1 story home with , 5 HECTOR
PLOF: independent, no assistive device used
DME: Walker, cane, wheelchair
Has had [facility] in past
PT eval-rec outpatient PT-declined script per PT
Resources given to patient on meal programs
PCP: Dora Wray
Pharm[facility]
PLAN: Home, no needs
to transport
== END 2025-08-08 13:22 | disposition home or self-care (01) | DRG 812 ==
LOC: 3 WEST ACU 18:23
PROVIDERS: Emergency Medicine; Physician Assistant; ADMITTING PHYSICIAN Internal Medicine; EMERGENCY PHYSICIAN Emergency Medicine; FAMILY PHYSICIAN Family Medicine; OTHER PHYSICIAN Internal Medicine Hematology & Oncology; OTHER PHYSICIAN Nuclear Medicine Nuclear Cardiology
PROC: 30233N1 Transfusion of Nonautologous Red Blood Cells into Peripheral Vein, Percutaneous Approach (ICD-10-PCS; 2025-08-07)
DX: D64.81 Anemia due to antineoplastic chemotherapy (principal); N17.9 Acute kidney failure, unspecified; T45.1X5A Adverse effect of antineoplastic and immunosuppressive drugs, initial encounter; Y92.9 Unspecified place or not applicable; E86.0 Dehydration; R55 Syncope and collapse; C54.1 Malignant neoplasm of endometrium; E78.00 Pure hypercholesterolemia, unspecified; D72.829 Elevated white blood cell count, unspecified; G43.909 Migraine, unspecified, not intractable, without status migrainosus; I10 Essential (primary) hypertension; Z87.891 Personal history of nicotine dependence; Z90.710 Acquired absence of both cervix and uterus; Z92.21 Personal history of antineoplastic chemotherapy; Z88.1 Allergy status to other antibiotic agents; Z91.013 Allergy to seafood; Z86.73 Personal history of transient ischemic attack (TIA), and cerebral infarction without residual deficits; Z90.722 Acquired absence of ovaries, bilateral; Z79.82 Long term (current) use of aspirin
CPT/HCPCS: 36430; 80048; 80053; 82607; 82728; 82746; 82962; 83540; 83550; 84484; 85025; 85027; 86850; 86900; 86901; 86920; 93005; 96374; 97163; 97166; 99285; P9016

== ENCOUNTER → 2025-08-14 09:26 | Outpatient (REF) | payer OTHER, SELFPAY ==
[2025-08-14 12:24] LABS: ALT (SGPT) < 10 U/L (0-35); AST (SGOT) 18 U/L (14-36); Albumin 3.5 g/dl (3.5-5.0); Alkaline Phosphatase 110 U/L (38-126); Blood Urea Nitrogen 20 mg/dl (7-17); Calcium 8.7 mg/dl (8.4-10.2); Carbon Dioxide 28 mmol/L (22-30); Chloride 105 mmol/L (98-107); Glucose 82 mg/dl (70-99); Magnesium 1.7 mg/dl (1.6-2.3); Potassium 4.1 mmol/L (3.5-5.1); Sodium 139 mmol/L (135-145); Total Protein 5.9 g/dl (6.3-8.2); eGFR 55.21
[2025-08-14 13:38] LABS: CA 125 46.9 U/mL (0-35)
== END ==
LOC: RAD 09:26
PROVIDERS: ATTENDING PHYSICIAN Obstetrics & Gynecology Gynecologic Oncology; FAMILY PHYSICIAN Family Medicine
DX: C54.1 Malignant neoplasm of endometrium (principal); E87.6 Hypokalemia; G62.0 Drug-induced polyneuropathy; G89.3 Neoplasm related pain (acute) (chronic); R18.8 Other ascites; M25.561 Pain in right knee
CPT/HCPCS: 36415; 71260; 73564; 74177; 80053; 83735; 84100; 86304; Q9967

== ENCOUNTER 2025-09-19 12:59 | Inpatient (IN) | payer OTHER, SELFPAY ==
[2025-09-18] VITALS (9 sets, daily range): BP systolic 121–169; BP diastolic 44–60; BMI 21.7
--- NOTE | 2025-09-18 10:39 | ED.GENMED ---
History of Present Illness
General
Chief Complaint: Weakness
Source: patient
Exam Limitations: none
Time Seen by Provider: 09/18/25 10:34
History of Present Illness
History of Present Illness:
See MDM
Past History
Past History
ED Past Medical History: Cancer (Endometrial cancer, T-cell Lymphoma), HTN, Hypercholesterolemia and Other (Migraines, Ascites, ); Negative NIDDM
ED Past Surgical History: Gynecological (Vulvectomy, Hysterectomy, Breast lumpectomy) and Other (Cataracts, )
Social History
Tobacco: Former smoker
Alcohol: None
Drug: None
Personal:
Living: with family
Phy Exam
Physical Exam
Physical Exam:
See MDM
Course
Orders/Labs/Results
Orders:
Orders
09/18/25 10:37
Type+Screen Urgent
09/18/25 10:38
Electrocardiogram (*1) Urgent
Reason for Study: Fatigue / Weakness
CT Head W/o Iv Contrast Urgent
Comment:
Reason For Exam: headache
EKG- Treatment ONCE
Urinalysis Reflex To Culture Urgent
0.9% Sodium Chloride 1000 ml [Nss] 1,000 ml IV BOLUS
09/18/25 11:21
Basic Metabolic Panel Urgent
Complete Blood Count/With Diff Urgent
09/18/25 12:14
Morphine Sulfate 4 mg IV NOW STA
09/18/25 12:23
Potassium Urgent
Comment: thank you
09/18/25 12:36
Dexamethasone Sod Phosphate [Decadron] 10 mg IV NOW STA
09/18/25 12:59
Neurosurgery Consult Routine
Consulting Provider: Lorna Orosco
Was physician already notified: Yes
Abnormal Lab Results
09/18/25
11:21
RBC 3.15 L 10^6/uL
(4.20-5.40)
Hgb 9.2 L g/dL
(12.0-16.0)
Hct 28.9 L %
(37.0-47.0)
MCHC 31.8 L g/dL
(33.0-37.0)
RDW 17.8 H %
(11.5-14.5)
MPV 12.8 H fL
(7.4-10.4)
Abs Immat Gran (auto) 0.1 H 10^3/uL
(0-0.05)
Immature Gran % 1.8 H %
(0-0.5)
Lymphocytes % 17.1 L %
(20.5-51.1)
Sodium 132 L mmol/L
(135-145)
BUN 31 H mg/dl
(7-17)
Glucose 107 H mg/dl
(70-99)
09/18/25 11:21
Vital Signs
Initial and Last Documented VS:
Initial Vital Signs
Temp Pulse Resp BP Pulse Ox
97.6 F 61 19 143/54 100
09/18/25 10:37 09/18/25 10:37 09/18/25 10:37 09/18/25 10:37 09/18/25 10:37
Last Documented Vital Signs
Temp Pulse Resp BP Pulse Ox
97.6 F 51 17 161/52 99
09/18/25 10:37 09/18/25 12:30 09/18/25 12:30 09/18/25 12:13 09/18/25 12:30
MDM/Problems Addressed
Differential Diagnosis Includes:
Note:
CHIEF COMPLAINT(S)
Weakness and headache.
HISTORY OF PRESENT ILLNESS
The patient is an 84-year-old female with a history of metastatic endometrial cancer for which she is on a trial drug. The patient reports a general feeling of weakness that has persisted since the trial drug transfusion. Recently, she has
experienced vomiting. The patient also reports having a headache but not experiencing significant pain otherwise. EMS started IV fluids
PHYSICAL EXAM
General: Weak and frail
Skin: Pale
Head: Normocephalic, atraumatic
Neck: Appears supple, trachea midline.
Eyes, Ears, Nose, Mouth, and Throat: Moist mucous membranes
Cardiovascular: No signs of cyanosis. Regular rate and rhythm
Respiratory: Respirations are non-labored.
Abdomen: Non-distended. No tenderness
Musculoskeletal: No deformities. No pitting edema
Neurological: No focal neurological deficit observed.
Psychiatric: Cooperative, appropriate mood and affect.
PLAN
Continued intravenous fluid administration has been planned. The current regimen includes hanging a liter of fluids after the initial dose. An imaging study (CT scan) of the head is to be performed to investigate the headache complaints.
DIFFERENTIAL DIAGNOSIS
The Differential Diagnosis includes, in no particular order and is not limited to:
- Medication side effects, particularly from chemotherapy
- Dehydration
- Anemia-related symptoms
- Hyponatremia or electrolyte imbalance
- Hypotension
- Neoplastic headache
- Chemotherapy-induced fatigue
- Infection or febrile illness
- Possible central nervous system event (e.g., stroke, transient ischemic attack)
- Primary headache disorder
SUMMARY OF ENCOUNTER
The patient was seen in the emergency department for complaints of weakness and headache. Management included intravenous fluid administration and ordering a head imaging study to further evaluate the headache. The decision to continue with fluids
was based on the presence of dehydration indicators and a recent history of symptomatic anemia. The patient was also questioned about pain and nausea to consider additional symptomatic treatments.
MEDICATION RECONCILIATION
No specific medications were administered or prescribed during this encounter; however, the continuation of current chemotherapy was noted.
MEDICAL DECISION MAKING
- Complexity of Data Reviewed: Chronic conditions affecting care, including ongoing chemotherapy and a history of symptomatic anemia. The differential diagnosis list is outlined above.
- Data:
Category 1:
- Clinical records from a previous hospitalization for symptomatic anemia were reviewed.
Category 2:
- Imaging tests (CT scan of the head) were considered to investigate the complaint of headaches.
Category 3:
- No consultation or discussion with other healthcare providers was mentioned.
- Risk: Prescription medication was considered for nausea and pain, but the patient declined additional medications beyond what was discussed for her chemotherapy side effects and current symptoms.
DIAGNOSIS
- Weakness, persistent, likely related to symptomatic anemia and ongoing chemotherapy (ICD-10: R53.1)
- Headache, not elsewhere classified (ICD-10: R51.9)
SUMMARY OF ENCOUNTER
The patient, an 84-year-old female undergoing chemotherapy and with a recent history of symptomatic anemia, presented in the emergency department with complaints of weakness and persistent headache. Management included intravenous fluid
administration. A CT scan of the head revealed concerning signs of new metastatic disease in the brain and mild vasogenic edema. The occurrence of a headache and the patients profound weakness warranted further evaluation and potential treatment for
the suspected metastatic disease.
DISPOSITION
Admit.
ASSESSMENT
Suspected new metastatic disease in the brain with accompanying vasogenic edema, causing weakness and headache.
EMERGENCY TREATMENTS ADMINISTERED
Intravenous dexamethasone (Decadron) was administered to address the vasogenic edema.
PLAN
Admission to the hospital for further evaluation of the suspected metastatic disease in the brain, management of symptoms, and potential further interventions. Continued intravenous fluid administration will be maintained.
INDEPENDENT REVIEW OF LABS AND INTERPRETATION OF TESTS
- My independent review of the sodium levels indicates mild hyponatremia, but it is not low enough to account for the patients symptoms.
- My independent review of the CT scan of the head shows concerning findings for potential new metastatic disease in the brain and mild vasogenic edema.
MEDICAL DECISION MAKING
- Number and Complexity of Problems Addressed: Chronic conditions affecting care with ongoing chemotherapy, recent history of symptomatic anemia, and suspected new metastatic disease in the brain.
- Data:
- Category 1: CT scan of the head was independently reviewed.
- Risk: Escalation of care to include admission due to complexity and risk associated with the potential new metastatic disease and symptomatic presentation including profound weakness and headache.
DIAGNOSIS
- Weakness, persistent, likely related to suspected new metastatic brain disease (ICD-10: R53.1)
- Headache, likely related to brain metastases (ICD-10: R51.9)
- Possible metastatic disease in the brain (specific ICD-10 code would be determined based on further evaluation)
*Pulse Oximetry
Patient hypoxic: no
*Critical Care Note
Total Time (30-74mins, 75-104mins- exclusive of procedures): Not Applicable
ED Attending Note
-
Portions of this chart may have been created with voice recognition software.� Occasional wrong word or��sound alike� substitutions may have occurred due to the inherent limitations of voice recognition software.
Discharge Plan
Departure
Patient Disposition: Admit
Date of Disposition: 09/18/25
Time of Disposition: 12:59
Admit to: Med/Surg
Presentation/result/management discussed w/ accepting MD/DO: Hospitalist
Discharge Problem:
Weakness, Metastasis to brain
Prescriptions:
No Action
losartan 50 mg Tablet
50 mg PO DAILY
amlodipine 5 mg Tablet
5 mg PO DAILY
aspirin 81 mg Tablet,Delayed Release (Dr/Ec)
81 mg PO DAILY
metoclopramide HCl [Reglan] 10 mg Tablet
10 mg PO TIDPRN PRN (Reason: nausea)
ezetimibe [Zetia] 10 mg Tablet
10 mg PO DAILY
pyridoxine (vitamin B6) 25 mg Tablet
25 mg PO DAILY
Visbiome 112.5 billion cell Capsule
1 cap PO QPM
Referrals:
UNKNOWN,NO INTERVIEW [Family Provider]
Interventions
Interventions:
*Risk Screen - Suicide Last Done: 09/18/25 10:37
*General Assessment Last Done: 09/18/25 10:37
*Neglect/Abuse Screening Last Done: 09/18/25 10:37
*ED COVID-19 Vaccine History Last Done: 09/18/25 10:37
*ED Influenza Vaccine History Last Done: 09/18/25 10:37
ED- Cardiac Assessment Last Done: 09/18/25 10:37
ED- Neurological Assessment Last Done: 09/18/25 10:37
ED- Pulmonary Assessment Last Done: 09/18/25 10:37
Discharge Date and Time
Print Language: MALTESE
[2025-09-18] MEDS: NSS 1000 IV (11:19)
[2025-09-18 11:34] LABS: Hematocrit 28.9 % (37.0-47.0); Hemoglobin 9.2 g/dL (12.0-16.0); Mean Corp Hgb Conc. 31.8 g/dL (33.0-37.0); Mean Corpuscular Volume 91.7 fL (81.0-99.0); Nucleated Red Blood Cells % 0 %; Platelet Count 251 10^3/uL (130-400); Red Cell Dist. Width 17.8 % (11.5-14.5)
[2025-09-18 11:54] LABS: Blood Urea Nitrogen 31 mg/dl (7-17); Calcium 8.7 mg/dl (8.4-10.2); Carbon Dioxide 27 mmol/L (22-30); Chloride 104 mmol/L (98-107); Estimated Creatinine Clearance 36 ml/min; Glucose 107 mg/dl (70-99); Sodium 132 mmol/L (135-145); eGFR 55.21
[2025-09-18] MEDS: MORPHINE SULFATE 4 MG IV (12:20)
[2025-09-18] MEDS: DECADRON 10 MG IV (12:42)
--- NOTE | 2025-09-18 13:09 | HPS.HSE ---
Addendum entered and electronically signed by Rekha Rosales MD 09/18/25 13:14:
Check MRI brain with and without contrast.
Original Note:
Family Physician
-
Family Physician: NO INTERVIEW UNKNOWN
Chief Complaint
-
headache, weakness
History of Present Illness
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
migraines, presenting with weakness, decreased p.o. intake for past few days. She also developed a headache 4 days ago in the back of her head. She has blurry vision from dry eyes. Denies double vision. Denies focal weakness or numbness or
tingling.
She denies smoking. She drinks alcohol occasionally.
Medical History
Past Medical History
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
migraines,)
Past Surgical History: Reports Other (Gynecological (Vulvectomy, Hysterectomy, Breast lumpectomy) and Other (Cataracts, )))
Social History
Tobacco: Non-smoker
Alcohol: Occasional
Drug: None
Family History
Family History: Not pertinent
Allergies / Home Medications
Allergies reflects when Allergies were last updated in [employer].
Home Medications with original date entered in [employer]
Allergy/Medication List:
Allergies
Allergy/AdvReac Type Severity Reaction Status Date / Time
cefaclor (From [facility]) Allergy Rash Verified 06/22/25 08:54
shrimp Allergy RASH-Does Verified 06/22/25 08:54
eat shrimp
Home Medications
amlodipine 5 mg tablet 5 mg PO DAILY Blood Pressure 06/20/25
losartan 50 mg tablet 50 mg PO DAILY Blood Pressure 06/20/25
Lactobac no.2-Bifidobac no.1-S. thermo 112.5 billion cell capsule (Visbiome) 1 cap PO QPM Gastrointestinal Issue 08/07/25
aspirin 81 mg tablet,delayed release 81 mg PO DAILY Blood Clot Prevention/Tx 08/07/25
ezetimibe 10 mg tablet (Zetia) 10 mg PO DAILY High Cholesterol 08/07/25
metoclopramide HCl 10 mg tablet (Reglan) 10 mg PO TIDPRN PRN nausea 08/07/25
pyridoxine (vitamin B6) 25 mg tablet 25 mg PO DAILY Supplement 08/07/25
Review of Systems
-
History Source: Patient
A 12 point ROS was completed and negative except as noted: Yes
Constitutional: Reports No Symptoms
EENT: Reports No Symptoms
Respiratory: Reports No Symptoms
Cardiac: Reports No Symptoms
Abdomen/GI: Reports No Symptoms
: Reports No Symptoms
Musculoskeletal: Reports No Symptoms
Skin: Reports No Symptoms
Endocrine: Reports No Symptoms
Hematologic/Lymphatic: Reports No Symptoms
Psych: Reports No Symptoms
Physical Exam
Vital Signs
Vital Signs
Temp Pulse Resp BP Pulse Ox
97.6 F 51 17 161/52 99
09/18/25 10:37 09/18/25 12:30 09/18/25 12:30 09/18/25 12:13 09/18/25 12:30
Physical Exam
General: Well Developed, Well Nourished and No Apparent Distress
HEENT: NormoCephalic, Moist mucous membranes and Atraumatic
Respiratory: Clear
Cardiac: S1/S2 and Regular Rhythm; No Murmur or Rub
GI: Soft, Non Tender, Non Distended and Normal Bowel Sounds; No Organomegaly
Rectal: Deferred by Provider
Musculoskeletal: No Clubbing, No Cyanosis and No Edema
Skin: No Rash
Neuro: Nonfocal/grossly intact
Laboratory Results
-
09/18/25 11:21
Laboratory Results
Total Bilirubin Cancelled 09/18/25 11:21
AST Cancelled 09/18/25 11:21
ALT Cancelled 09/18/25 11:21
Alkaline Phosphatase Cancelled 09/18/25 11:21
Data Reviewed
-
Lab Data: Labs Reviewed by me
Old Records: Reviewed
Impression/Plan
-
IMPRESSION:
PLAN:
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
- CT head shows multiple intraparenchymal masses in the cerebellum and additional mass in the medial left occipital lobe and right parietal lobe, probable small masses in anterior medial left frontal lobe concerning for intracranial metastatic
disease
- Dexamethasone started
- Morphine for pain
- Neurosurgery consulted
- Oncology consulted
- Patient likely would benefit from hospice
Metastatic endometrial cancer s/p hyst
- On trial chemotherapy
Chronic anemia
- Hemoglobin stable at 9.2
Essential hypertension
- Continue amlodipine, losartan
- Continue prophylactic aspirin
Hyperlipidemia
- Continue Zetia
Migraines
Full code
DVT prophylaxis SCDs
Regular diet
--- NOTE | 2025-09-18 14:13 | CM ---
CM reviewed chart and spoke with Jason and patient at ED bedside MATIAS reviewed and signed at 2:05 pm
She lives in a 1 story home with 5 HECTOR
assists with ADLs DME walker, cane and w/c
CELL [phone] Dora Rossi
RX plan yes
Pharmacy [facility] in [place]
HX of [facility] and SNF
DCP is to go home with HHC vs other services after oncology consult
CM will continue to follow up for dcp needs
[2025-09-18] MEDS: ZOFRAN 4 MG IV (15:29)
[2025-09-18] MEDS: VISBIOME 1 CAP PO (17:07)
--- NOTE | 2025-09-18 18:21 | PTCARENOTE ---
received pt from ED approx 1630 to room 331. Assessed, VS stable, oriented to room, bed and chair alarms placed, fall risk bracelet applied. SCDs in place, bed in lowest position. Continue plan of care
[2025-09-18 23:01] LABS: Potassium 4.6 mmol/L (3.5-5.1)
--- NOTE | 2025-09-19 02:49 | DOWNTIME ---
There was a [employer] Downtime on 09/19/2025 from 0100 to 09/19/2025 at 0215. Downtime documentation of patient's care, including medication administrations, has been reconciled in the electronic record per guidelines. Refer to the
patient's paper chart under the miscellaneous tab to see printed paper medication records and downtime forms.
[2025-09-19 06:02] LABS: Hematocrit 27.0 % (37.0-47.0); Hemoglobin 8.5 g/dL (12.0-16.0); Mean Corp Hgb Conc. 31.5 g/dL (33.0-37.0); Mean Corpuscular Volume 97.1 fL (81.0-99.0); Nucleated Red Blood Cells % 0 %; Platelet Count 237 10^3/uL (130-400); Red Cell Dist. Width 17.5 % (11.5-14.5)
[2025-09-19 06:26] LABS: ALT (SGPT) 10 U/L (0-35); AST (SGOT) 18 U/L (14-36); Albumin 3.1 g/dl (3.5-5.0); Alkaline Phosphatase 66 U/L (38-126); Blood Urea Nitrogen 31 mg/dl (7-17); Calcium 8.7 mg/dl (8.4-10.2); Carbon Dioxide 27 mmol/L (22-30); Chloride 107 mmol/L (98-107); Estimated Creatinine Clearance 36 ml/min; Glucose 100 mg/dl (70-99); Potassium 4.3 mmol/L (3.5-5.1); Sodium 137 mmol/L (135-145); Total Protein 5.4 g/dl (6.3-8.2); eGFR 55.21
[2025-09-19 07:00] VITALS: BP 124/51
[2025-09-19] MEDS: ASPIR LOW (ENTERIC COATED) 81 MG PO (09:04)
[2025-09-19] MEDS: NORVASC 5 MG PO (09:04)
[2025-09-19] MEDS: ZETIA 10 MG PO (09:04)
[2025-09-19] MEDS: VITAMIN B-6 25 MG PO (09:05)
[2025-09-19] MEDS: COZAAR 50 MG PO (09:05)
[2025-09-19] MEDS: MORPHINE SULFATE 1 MG IV (09:11)
[2025-09-19] MEDS: DECADRON 6 MG IV ×3 (09:17→23:28)
--- NOTE | 2025-09-19 10:18 | CON.ONC ---
Consultation
-
Date Consultation Requested: 09/18/25
Date Consultation Performed: 09/19/25
Requesting Provider: Rekha Rosales MD
Performing Provider: Adiel Garcia MD; Kallie Fernandez MD
Reason for Consultation: Brain CT suggestive of Brain Metastases; Metastatic endometrial cancer
Impression
Impression
Metastatic Endometrial cancer with recurrent carcinomatosis
Brain CT suggestive of brain metastases
Essential Hypertension
Hyperlipidemia
Plan
Plan
--Given the Brain CT showing multiple brain masses and vasogenic edema-- suggestive of brain metastatic disease in correlation with patient's current symptoms, we will be starting empiric high dose Dexamethasone 6mg IV q8H. Loading dose of 10mg
previously given at the ER. Transition to PO Dexamethasone 4-6mg q8H as outpatient.
---Brain MRI today-- awaiting results
--CT chest/abdomen/pelvis with IV and Oral Contrast-- awaiting results for restaging of carcinomatosis; patient stated that she was scheduled to have one done as outpatient today.
--repeat CA-125- previous value at 08/14/2025 was elevated at 46.9
---Given the possibility of brain metastases, the need of outpatient whole brain radiation was discussed with the patient. Dr. Marino at [facility] was consulted and updated regarding the patient.
---The patient is also currently part of clinical trial for Sacituzumab Govitecan for recurrent endometrial cancer, but given brain metastasis, she may no longer be a candidate for further treatment. Possibility was discussed with the patient.
Awaiting further imaging. Discussed case with community recreation coordinator.
Patient History
History of Present Illness
Ms. Rhoades is an 84 year old female with past medical history of endometrial adenocarcinoma (2013) s/p hysterectomy with BSO and vaginal brachytherapy, with recurrence and peritoneal carcinomatosis in 2021 s/p clinical trial of Keytruda
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
One week prior to consultation, she developed dizziness described as a sensation of the room spinning, occurring even while lying down with her eyes closed, associated with constant occipital headaches. Over the weekend, she had 4-5 episodes of
vomiting, initially of ingested food, later progressing to brown-colored material�despite poor oral intake. Since then, she reports worsening generalized weakness and has been unable to ambulate since yesterday. She also endorses several weeks of
blurry vision, and more recent onset of tinnitus and worsening bilateral diminished hearing.
CT scan showed: Multiple intraparenchymal masses in the cerebellum and additional masses in the medial left occipital lobe and right parietal lobe. Probable small masses in the anteromedial left frontal lobe
At time of consultation, the patient reported feeling better, but she still had dizziness with weakness, and continues to have poor appetite.
She denies abdominal pain, speech difficulties, seizure like activities and changes in bowel/urination.
Past-Medical/Surgical History
Metastatic Endometrial Cancer (2013) s/p hysterectomy with BSO and vaginal brachytherapy
Recurrence with Peritoneal Carcinomatosis (2021) s/p Keytruda immunotherapy, currently on Sacituzumab Govitecan clinical trial
Paget's disease of vulva s/p vulvectomy (2022)
Cutaneous T cell lymphoma s/p excision
SCC s/p cryotherapy
Essential Hypertension
Hyperlipidemia
Osteoporosis
Patient Medication
�Medication �Instructions �Recorded �Confirmed �Last Taken �Type
amlodipine 5 mg tablet 5 mg PO DAILY Blood Pressure 06/20/25 09/18/25 08/07/25 History
losartan 50 mg tablet 50 mg PO DAILY Blood Pressure 06/20/25 09/18/25 08/07/25 History
Lactobac no.2-Bifidobac no.1-S. 1 cap PO QPM Gastrointestinal Issue 08/07/25 09/18/25 08/06/25 History
thermo 112.5 billion cell capsule
(Visbiome)
aspirin 81 mg tablet,delayed 81 mg PO DAILY Blood Clot 08/07/25 09/18/25 08/07/25 History
release Prevention/Tx
ezetimibe 10 mg tablet (Zetia) 10 mg PO DAILY High Cholesterol 08/07/25 09/18/25 08/07/25 History
metoclopramide HCl 10 mg tablet 10 mg PO TIDPRN PRN nausea 08/07/25 09/18/25 Unknown History
(Reglan)
pyridoxine (vitamin B6) 25 mg 25 mg PO DAILY Supplement 08/07/25 09/18/25 08/07/25 History
tablet
Active Medications
Generic Name Dose Route Start Last Admin
Trade Name Freq PRN Reason Stop Dose Admin
Amlodipine Besylate 5 mg 09/19/25 08:00 09/19/25 09:04
Amlodipine 5 Mg Tablet PO 10/17/25 07:59 5 mg
DAILY SILVERIO Administration
Aspirin 81 mg 09/19/25 08:00 09/19/25 09:04
Aspirin 81 Mg (Enteric Coated) Tablet PO 10/17/25 07:59 81 mg
DAILY SILVERIO Administration
Dexamethasone Sodium Phosphate 6 mg 09/19/25 09:15 09/19/25 09:17
Dexamethasone 4 Mg/Ml 1 Ml Vial IV 10/17/25 09:14 6 mg
Q8 SILVERIO Administration
Ezetimibe 10 mg 09/19/25 08:00 09/19/25 09:04
Ezetimibe (Zetia) 10 Mg Tablet PO 10/17/25 07:59 10 mg
DAILY SILVERIO Administration
Lactobacillus/Bifidobacterium 1 cap 09/18/25 18:00 09/18/25 17:07
Lactobac/Bifidobac (Visbiome) PO 10/16/25 17:59 1 cap
QPM SILVERIO Administration
Losartan Potassium 50 mg 09/19/25 08:00 09/19/25 09:05
Losartan 50 Mg Tablet PO 10/17/25 07:59 50 mg
DAILY SILVERIO Administration
Metoclopramide HCl 10 mg 09/18/25 15:11
Metoclopramide 10 Mg Tablet PO 10/16/25 15:10
TIDPRN PRN
nausea
Morphine Sulfate 1 mg 09/18/25 16:00 09/19/25 09:11
Morphine 2 Mg/Ml Syringe IV 10/02/25 15:59 1 mg
Q4HPRN PRN Administration
headache
Ondansetron HCl 4 mg 09/18/25 15:08 09/18/25 15:29
Ondansetron 4 Mg/2 Ml Vial IV 10/16/25 15:07 4 mg
Q6HPRN PRN Administration
NAUSEA/VOMITING
Pyridoxine HCl 25 mg 09/19/25 08:00 09/19/25 09:05
Pyridoxine 50 Mg Tablet PO 10/17/25 07:59 25 mg
DAILY SILVERIO Administration
Review of Systems
-
History Source: Patient
Constitutional: Reports No Appetite and Weakness; Denies Fever
EENT: Reports Blurry Vision, Tinnitis and Hearing Loss
Respiratory: Reports No Symptoms
Cardiac: Reports No Symptoms
GI: Denies Abdominal Pain
: Reports No Symptoms
Musculoskeletal: Reports No Symptoms
Skin: Reports No Symptoms
Neuro: Reports Headache and Weakness; Denies Seizures
Endocrine: Reports No Symptoms
Psych: Reports Sad
Physical Exam
-
General: No Apparent Distress and Appears Chronically Ill
Cardiology: Normal Sinus Rhythm, S1 and S2
Pulmonary: Clear
GI: Soft and Other (Non-distented, non-tender)
Musculoskeletal: No Edema and Other (UE 4/5, LE 3/5, Good aircraft assembler strength)
Extremities: Pulses Present
Neurology: Other (Titubation)
Skin: Warm
Psych: Calm and Intact Judgement/Insight
Labs
Lab Results
WBC 7.5 10^3/uL (4.8-10.8) 09/19/25 05:38
RBC 2.78 10^6/uL (4.20-5.40) L 09/19/25 05:38
Hgb 8.5 g/dL (12.0-16.0) L 09/19/25 05:38
Hct 27.0 % (37.0-47.0) L 09/19/25 05:38
MCV 97.1 fL (81.0-99.0) 09/19/25 05:38
MCH 30.6 pg (27.0-31.0) 09/19/25 05:38
MCHC 31.5 g/dL (33.0-37.0) L 09/19/25 05:38
RDW 17.5 % (11.5-14.5) H 09/19/25 05:38
Plt Count 237 10^3/uL (130-400) 09/19/25 05:38
MPV 12.0 fL (7.4-10.4) H 09/19/25 05:38
Abs Immat Gran (auto) 0.2 10^3/uL (0-0.05) H 09/19/25 05:38
Absolute Neuts (auto) 5.0 10^3/uL (1.4-6.5) 09/19/25 05:38
Absolute Lymphs (auto) 1.9 10^3/uL (1.2-3.4) 09/19/25 05:38
Absolute Monos (auto) 0.4 10^3/uL (0.1-0.6) 09/19/25 05:38
Absolute Eos (auto) 0.0 10^3/uL (0-0.7) 09/19/25 05:38
Absolute Basos (auto) 0.0 10^3/uL (0-0.2) 09/19/25 05:38
Immature Gran % 2.0 % (0-0.5) H 09/19/25 05:38
Neutrophils % 66.6 % (42.2-75.2) 09/19/25 05:38
Lymphocytes % 25.8 % (20.5-51.1) 09/19/25 05:38
Monocytes % 4.7 % (1.7-9.3) 09/19/25 05:38
Eosinophils % 0.4 % (0-6) 09/19/25 05:38
Basophils % 0.5 % (0-2) 09/19/25 05:38
Creatinine 1.0 mg/dL (0.6-1.0) 09/19/25 05:38
Vital Signs
Vital Signs
Temp Pulse Resp BP Pulse Ox
97.9 F 55 16 124/51 98
09/19/25 07:00 09/19/25 09:04 09/19/25 07:00 09/19/25 09:04 09/19/25 07:00
[2025-09-19] MEDS: OMNIPAQUE 50 ML PO (10:25)
[2025-09-19] MEDS: ZOFRAN 4 MG IV ×2 (10:31→23:37)
--- NOTE | 2025-09-19 12:46 | W.PN.HOSP.TC ---
Today's Communication/Plan
-
Assessment / Plan
Assessment / Plan
NAD
Scleral Anicteric
MMM
No JVD
CTABL
RRR, S1/S2
Soft, NT, ND, BS+
Warm, Dry
AAOx3
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
Dexamethasone started
Morphine
Neurosurgery
Oncology consult
Will need continued outpatient oncology follow-up for chemotherapy
MRI brain
?Benefit from whole brain radiation
Chronic normocytic anemia
Without evidence of acute bleeding
Transfuse less than 7
Hypertension
Continue Antivert tensive's
Hyperlipidemia
Continue Zetia
Anticipated Discharge: > 48 hours
Subjective/Interval History
-
Date of Service: September 19, 2025
Seen and examined. No new complaints. No acute overnight events.
Objective Data
-
Labs:
Laboratory Results
09/19/25
05:38
WBC 7.5
Hgb 8.5 L
Hct 27.0 L
Plt Count 237
Sodium 137
Potassium 4.3
Chloride 107
Carbon Dioxide 27
BUN 31 H
Creatinine 1.0
Glucose 100 H
Calcium 8.7
Total Bilirubin 0.5
AST 18
ALT 10
Alkaline Phosphatase 66
Vital Signs:
Vital Signs
Temp Pulse Resp BP Pulse Ox
97.9 F 55 16 124/51 98
09/19/25 07:00 09/19/25 09:04 09/19/25 07:00 09/19/25 09:04 09/19/25 07:00
I&O
09/18/25 09/19/25 09/20/25
06:59 06:59 06:59
Intake Total 120 / 120
Balance 120 / 120
[2025-09-19 13:30] LABS: Urine Character Clear (Clear)
[2025-09-19 13:39] LABS: Urine Red Blood Cell 0-2 /HPF (0-2)
[2025-09-19 15:00] VITALS: BP 136/43
[2025-09-19] MEDS: VISBIOME 1 CAP PO (16:47)
--- NOTE | 2025-09-19 17:13 | W.PN.UPDATE ---
Update Note
Progress Note Update
Attempted to see patient, but the patient was down in MRI.
[2025-09-19 23:00] VITALS: BP 127/45
[2025-09-20 07:00] VITALS: BP 133/57
[2025-09-20] MEDS: VITAMIN B-6 25 MG PO (08:44)
[2025-09-20] MEDS: COZAAR 50 MG PO (08:44)
[2025-09-20] MEDS: NORVASC 5 MG PO (08:44)
[2025-09-20] MEDS: ZETIA 10 MG PO (08:45)
[2025-09-20] MEDS: DECADRON 6 MG IV ×2 (08:45→17:04)
[2025-09-20] MEDS: ASPIR LOW (ENTERIC COATED) 81 MG PO (08:45)
--- NOTE | 2025-09-20 12:16 | CM ---
MD spoke with patient about MRI results.
Hospice referral made . Spoke with patient and , Hospice requested.. Referral placed.
[facility] of referral .
Changed to Inpatient . IMM given signed IMM on chart.
PLAN Depending on hospice evaluation
--- NOTE | 2025-09-20 12:37 | HOSPNOTE ---
Addendum entered by Patsy Vidales RN 09/20/25 13:54:
Spoke with family and patient and they are in agreement with hospice and the philosophy. The plan is for patient to go home tomorrow, spouse will drive patient and he will be at the hospital at 10am. Once patient is home we will admit onto hospice
services. Attending and CM aware. Code status is a DNR.
Original Note:
Left a message for spouse to call me to discuss hospice and the philosophy. More information to follow.
--- NOTE | 2025-09-20 12:59 | W.PN.HOSP.TC ---
Today's Communication/Plan
-
Assessment / Plan
Assessment / Plan
NAD
Scleral Anicteric
MMM
No JVD
CTABL
RRR, S1/S2
Soft, NT, ND, BS+
Warm, Dry
AAOx3
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
Dexamethasone started
Morphine
Neurosurgery rec palliative radiation
Oncology consult rec hospice vs palliative radiation discussed what that would look like in terms of radiation
Will need continued outpatient oncology follow-up for chemotherapy
MRI brain reviewed and discussed at bedside with
GoC planning 21mins
-Hospice consulted, would like to continue steroids on hospice
Chronic normocytic anemia
Without evidence of acute bleeding
Transfuse less than 7
Hypertension
Continue Antivert tensive's
Hyperlipidemia
Continue Zetia
Anticipated Discharge: Within 24 hours
Subjective/Interval History
-
Date of Service: September 20, 2025
Seen and examined. No new complaints. No acute overnight events.
at bedside
Discussed neurosurgery findings and recommendations palliative radiation. No surgical intervention.
Discussed severe edema and concern if edema is increasing too rapidly then her brain can herniate meeting could squeeze through a tiny hole causing her to to have a slow heart rate low blood pressure and low respiratory rate
Objective Data
-
Vital Signs:
Vital Signs
Temp Pulse Resp BP Pulse Ox
97.5 F 57 17 133/57 98
09/20/25 07:00 09/20/25 08:44 09/20/25 07:00 09/20/25 08:44 09/20/25 07:00
I&O
09/19/25 09/20/25 09/21/25
06:59 06:59 06:59
Intake Total 120 / 120 740 / 740
Balance 120 / 120 740 / 740
--- NOTE | 2025-09-20 14:18 | W.PN.ONC ---
Documented by User: Kallie Fernandez MD, Resident 09/20/25 15:01
Today's Communication / Plan
-
GOC discussions ongoing
Impression
Impression
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
Right hydronephrosis and hydroureter
Essential Hypertension
Hyperlipidemia
Plan
Plan
Brain MRI results demonstrating multiple intraparenchymal brain metastases and Chest/Abdomen/Pelvis CT result showing endometrial cancer disease progression was explained to the patient and at bedside. Neurosurgery recommends Palliative
Radiation thus was discussed in detail, but the patient refused at this time.
GOC and hospice discussion initiated-- patient and her seems to be leaning towards this route and is open for further discussion with Hospice care team, with continued use of steroids. Updated the primary team.
Subjective/Objective
Subjective/Objective
The patient says she feels the same as yesterday, still having some dizziness and weakness. Denies chest pain. She denies difficulty urinating, vomiting, and abdominal pain. When discussing about palliative radiation, she states that 'she doesn't
want to live like that' and would like to refuse at this time. The patient and her is open for Hospice care talk at this time.
Vital Signs:
Vital Signs
Temp Pulse Resp BP Pulse Ox
97.5 F 57 17 133/57 98
09/20/25 07:00 09/20/25 08:44 09/20/25 07:00 09/20/25 08:44 09/20/25 07:00
Lab Results:
Laboratory Data
WBC 7.5 10^3/uL (4.8-10.8) 09/19/25 05:38
Hgb 8.5 g/dL (12.0-16.0) L 09/19/25 05:38
Plt Count 237 10^3/uL (130-400) 09/19/25 05:38
eGFR 55.21 09/19/25 05:38

Documented by User: Chevy Ho MD 09/20/25 15:35
Plan
Plan
Brain MRI results demonstrating multiple intraparenchymal brain metastases and Chest/Abdomen/Pelvis CT result showing endometrial cancer disease progression was explained to the patient and at bedside. Neurosurgery recommends Palliative
Radiation thus was discussed in detail, but the patient refused at this time.
GOC and hospice discussion initiated-- patient and her seems to be leaning towards this route and is open for further discussion with Hospice care team, with continued use of steroids. Updated the primary team.
Oncology Addendum:
Patient seen and evaluated and agree w/ resident note and plan as outlined
-advanced endometrial carcinoma w/ recent progression of disease on CT imaging c/a/p as well as new brain metastasis
-discussed overall plan of care w/ patient and - pt expressed that she is not interested in further systemic therapy for her advanced metastatic malignancy
-outlined potential role for referral to radiation oncology for palliative radiation therapy for brain metastasis and the patient and declined
-outlined supportive care options - including palliative care and hospice
-after discussion - both patient and her expressed an interest in transition to hospice care
Discussed w/ hospitalist and hospice consult has been placed
[2025-09-20 14:55] VITALS: BP 130/50
[2025-09-20] MEDS: VISBIOME 1 CAP PO (17:05)
[2025-09-20 19:11] LABS: CA 125 54.0 U/mL (0-35)
[2025-09-20 23:24] VITALS: BP 126/52
[2025-09-21] MEDS: DECADRON 6 MG IV ×2 (00:46→08:22)
[2025-09-21 08:18] VITALS: BP 131/50
[2025-09-21] MEDS: ZETIA 10 MG PO (08:19)
[2025-09-21] MEDS: ASPIR LOW (ENTERIC COATED) 81 MG PO (08:19)
[2025-09-21] MEDS: VITAMIN B-6 25 MG PO (08:20)
[2025-09-21] MEDS: NORVASC 5 MG PO (08:21)
[2025-09-21] MEDS: COZAAR 50 MG PO (08:22)
--- NOTE | 2025-09-21 09:35 | CM ---
entered order for discharge.
will drive pt home.
Hospice set up.
As per [facility] no DME needed in home.
PLAN Home with Hospice
--- NOTE | 2025-09-21 10:36 | PTCARENOTE ---
pt denied complaints, tolerated breakfast, transferring with assist x1, vss, for discharge home with hospice with her .
--- NOTE | 2025-09-21 13:08 | W.DCSUMMARY ---
Discharge Summary
Discharge Data
Date of Admission: 09/19/25
Date of Discharge: 09/21/25
-
Pending Results: No
Hospital Course
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
migraines
Presented with metastatic brain cancer from endometrial cancer. Was seen by oncology and neurosurgery. MRI obtained demonstrating multiple lesions with severe vasogenic edema. Neurosurgery did not believe they would be able to provide operative
intervention and recommended palliative radiation. Case discussed with oncology who recommended hospice as unable to provide palliative radiation due to logistics. Hospice consulted for home hospice to initiate on 09/21.
CT CAP
IMPRESSION:
Increased size of the peritoneal metastatic disease in the left upper quadrant of the abdomen compared to the CT chest/abdomen/pelvis from 08/14/2025.
New severe right hydronephrosis and hydroureter. No obstructing ureteral calculus. Narrowing of the distal right ureter in the pelvis possibly secondary to occult disease recurrence/metastatic disease.
Minimal pneumonitis in the right middle lobe.
Indeterminate 0.5 cm hypoattenuating focus in the posterior right hepatic lobe, although appears new from previous examinations and could represent a small hepatic metastasis.
CT Head
IMPRESSION:
Multiple intraparenchymal masses in the cerebellum and additional masses in the medial left occipital lobe and right parietal lobe. Probable small masses in the anteromedial left frontal lobe. CT findings are highly suspicious for intracranial
metastatic disease.
MRI Brain
IMPRESSION:
1. LARGE INTRAPARENCHYMAL BRAIN METASTASES in the CEREBELLAR HEMISPHERES containing intratumoral hemorrhage and surrounded by severe vasogenic edema causing mass effect and INFERIOR CEREBELLAR TONSILLAR HERNIATION.
2. Small metastasis in the kristi surrounded by vasogenic edema.
3. Multiple Supratentorial Brain Metastases: Seen and examined the day of discharge which was 09/21/2025. No new complaints. No acute overnight events. 2.4 cm metastasis in the anteromedial left occipital lobe, 2.1 cm metastasis in the right
parietal lobe, and 1.2 cm metastasis in the medial left frontal lobe surrounded by vasogenic edema.
4. No MRI evidence for obstructive hydrocephalus.
5. Mild diffuse cerebral volume loss.
Seen and examined on the day of discharge which was 09/21/2025. Manage no complaints. No acute overnight events.
NAD
Scleral Anicteric
MMM
No JVD
CTABL
RRR, S1/S2
Soft, NT, ND, BS+
Warm, Dry
AAOx3
More than 30 minutes spent in discharge including
Final examination of the patient
Summarizing hospital stay
Instructions for continuing care to all relevant caregivers
Preparation of discharge records, prescriptions, and referral forms
Total time spent (in minutes): 33mins
Discharge Plan
-
Patient Disposition: Home with Hospice
Discharge Diagnosis/Procedures: Metastatic brain cancer
Condition: Good
Diet: As tolerated
Activity: As tolerated
Activity Restrictions/Additional Instructions:
Presented with metastatic brain cancer from endometrial cancer. Was seen by oncology and neurosurgery. MRI obtained demonstrating multiple lesions with severe vasogenic edema. Neurosurgery did not believe they would be able to provide operative
intervention and recommended palliative radiation. Case discussed with oncology who recommended hospice as unable to provide palliative radiation due to logistics. Hospice consulted for home hospice to initiate on 09/21.
CT CAP
IMPRESSION:
Increased size of the peritoneal metastatic disease in the left upper quadrant of the abdomen compared to the CT chest/abdomen/pelvis from 08/14/2025.
New severe right hydronephrosis and hydroureter. No obstructing ureteral calculus. Narrowing of the distal right ureter in the pelvis possibly secondary to occult disease recurrence/metastatic disease.
Minimal pneumonitis in the right middle lobe.
Indeterminate 0.5 cm hypoattenuating focus in the posterior right hepatic lobe, although appears new from previous examinations and could represent a small hepatic metastasis.
CT Head
IMPRESSION:
Multiple intraparenchymal masses in the cerebellum and additional masses in the medial left occipital lobe and right parietal lobe. Probable small masses in the anteromedial left frontal lobe. CT findings are highly suspicious for intracranial
metastatic disease.
MRI Brain
IMPRESSION:
1. LARGE INTRAPARENCHYMAL BRAIN METASTASES in the CEREBELLAR HEMISPHERES containing intratumoral hemorrhage and surrounded by severe vasogenic edema causing mass effect and INFERIOR CEREBELLAR TONSILLAR HERNIATION.
2. Small metastasis in the kristi surrounded by vasogenic edema.
3. Multiple Supratentorial Brain Metastases: 2.4 cm metastasis in the anteromedial left occipital lobe, 2.1 cm metastasis in the right parietal lobe, and 1.2 cm metastasis in the medial left frontal lobe surrounded by vasogenic edema.
4. No MRI evidence for obstructive hydrocephalus.
5. Mild diffuse cerebral volume loss.
Referrals:
UNKNOWN,NO INTERVIEW [Family Provider]
Additional Discharge Medication Instructions: Will need to discuss with hospice doctor/team along with PCP of how to taper dexamethasone dosing to prevent adrenal insufficiency/crisis
Prescriptions:
New
dexamethasone 1 mg tablet
4 mg PO BID Qty: 60 0RF
Continued
losartan 50 mg Tablet
50 mg PO DAILY
amlodipine 5 mg Tablet
5 mg PO DAILY
aspirin 81 mg Tablet,Delayed Release (Dr/Ec)
81 mg PO DAILY
metoclopramide HCl [Reglan] 10 mg Tablet
10 mg PO TIDPRN PRN (Reason: nausea)
ezetimibe [Zetia] 10 mg Tablet
10 mg PO DAILY
pyridoxine (vitamin B6) 25 mg Tablet
25 mg PO DAILY
Visbiome 112.5 billion cell Capsule
1 cap PO QPM
Discharge Orders:
Discharge Patient (As Directed); Ordered 09/21/25
Ordered By: Aubrey Chappell
Discharge Date and Time
Discharge Date/Time: 09/21/25 10:39
Print Language: ANDORRAN
== END 2025-09-21 10:39 | disposition hospice, home (50) | DRG 54 ==
LOC: 3 WEST ACU 12:59
PROVIDERS: ADMITTING PHYSICIAN Hospitalist; ATTENDING PHYSICIAN Hospitalist; EMERGENCY PHYSICIAN Student in an Organized Health Care Education/Training Program; OTHER PHYSICIAN Internal Medicine Hematology & Oncology
DX: C79.31 Secondary malignant neoplasm of brain (principal); G93.5 Compression of brain; G93.6 Cerebral edema; N13.30 Unspecified hydronephrosis; C78.6 Secondary malignant neoplasm of retroperitoneum and peritoneum; C54.1 Malignant neoplasm of endometrium; Z87.891 Personal history of nicotine dependence; D64.9 Anemia, unspecified; I10 Essential (primary) hypertension; Z79.82 Long term (current) use of aspirin; Z90.710 Acquired absence of both cervix and uterus
CPT/HCPCS: 70450; 70553; 71260; 74177; 80048; 80053; 81003; 81015; 84132; 85025; 86304; 87086; 93005; 96361; 96374; 96375; 99285; A9575; Q9967